=== PATIENT | female | born 1965 | race Caucasian/White ===

== ENCOUNTER 2019-08-06 14:16 | Outpatient (CLI) | payer MEDICARE, MEDICAID, SELFPAY ==
--- NOTE | 2019-08-06 | ECHO_ITS ---
Patient Info Name: Ivis Manriquez Age: 54 years : 1965 Gender: Female Ht: 62 in Wt: 162 lbs BSA: 1.82 m2 HR: 78 bpm BP: 162 / 96 mmHg Heart Rhythm: Sinus Rhythm Technical Quality: Good Exam Date: 08/06/2019 3:02 PM Exam Location: [facility] Patient Status: Outpatient Admit Date: 08/06/2019 Staff Ordering Physician: Akira, Gris SOTO Cigarette Maker: Greg Marie RDCS Attending Provider: Akira, Gris SOTO Exam Type: CA echo doppler color flow Study Info Indications I31.3 - Pericardial effusion (noninflammatory) Complete two-dimensional, color flow and Doppler transthoracic echocardiogram is performed. Strain analysis performed. History/Risk Factors Pericardial effusion. Summary 1. Left ventricular chamber size and systolic function are normal with no regional wall motion abnormalities with an estimated ejection fraction of 60-65% average is-20%, normal. Global longitudinal strain Borderline LVH is present as is diastolic dysfunction. 2. Left atrial chamber dimension is mildly enlarged. 3. Mild pulmonary hypertension, estimated pulmonary arterial systolic pressure is 38 mmHg. 4. There is trace mitral and tricuspid valve regurgitation. 5. There is no pericardial effusion. 6. Normal sinus rhythm. Left Ventricle Left ventricular chamber dimension is normal. Left ventricular systolic function is normal, estimated at Empty. There is mildly increased left ventricular wall thickness. Left ventricular septal wall motion is normal. The left ventricular diastolic function is grade II diastolic dysfunction. Left ventricular chamber size and systolic function are normal with no regional wall motion abnormalities with an estimated ejection fraction of 60-65% average is-20%, normal. Global longitudinal strain Borderline LVH is present as is diastolic dysfunction. Right Ventricle Right ventricular chamber dimension is normal. Right ventricular systolic function is normal. Left Atria Left atrial chamber dimension is mildly enlarged. Right Atria Right atrial chamber dimension is normal. Aortic Valve The aortic valve is trileaflet. There is no aortic valve sclerosis. There is no aortic valve stenosis. There is no aortic valve regurgitation. Pulmonic Valve The pulmonic valve is normal. There is no pulmonic valve stenosis. There is no pulmonic regurgitation. Mitral Valve The mitral valve has normal leaflets. There is no mitral valve stenosis. There is trace mitral and tricuspid valve regurgitation. Tricuspid Valve The tricuspid valve leaflets are normal. There is no significant tricuspid valve stenosis. There is trace tricuspid valve regurgitation. Mild pulmonary hypertension, estimated pulmonary arterial systolic pressure is 38 mmHg. Pericardium/Pleural The pericardium appears normal. There is no pericardial effusion. Inferior Vena Cava Normal inferior vena cava with >50% collapse upon inspiration consistent with Empty right atrial pressure, 10 mmHg. Aorta The aortic root size at the sinus of Valsalva is normal. The prox ascending aorta size is normal. Left Ventricular Outflow Tract Name Value Normal LVOT 2D LVOT Diameter 2.0
== END 2019-08-06 14:17 | disposition home or self-care (01) ==
LOC: ANHCARD 14:21
PROVIDERS: PCP Physician Assistant; Visit Provider Nurse Practitioner
DX: I31.3 Pericardial effusion (noninflammatory) (principal); I27.20 Pulmonary hypertension, unspecified; I51.7 Cardiomegaly
CPT/HCPCS: 93306

== ENCOUNTER 2019-12-04 13:19 | Outpatient (CLI) | payer MEDICARE, MEDICAID, SELFPAY ==
[2019-12-04 13:38] LABS: Basophils Percent Auto 0.3 % (0.2-1.2); Eosinophils Absolute Auto 0.2 K/mm3 (0-0.3); Eosinophils Percent Auto 2.4 % (0-4.4); Hematocrit 35.2 % (37.0-47.0); Hemoglobin 12.1 g/dL (12.0-15.0); Immature Granulocyte Absolute 0.03 K/mm3 (0.00-0.031); Immature Granulocyte Percent A 0.4 % (0-0.5); Lymphocytes Absolute Auto 2.19 K/mm3 (0.9-3.2); Mean Corpuscular HGB Conc 34.4 g/dl (32-36); Mean Corpuscular Hemoglobin 30.5 pg (26-34); Mean Corpuscular Volume 88.7 fl (80-100); Mean Platelet Volume 7.9 fl (7.4-10.4); Monocytes Percent Auto 12.5 % (2.6-8.5); Neutrophils Absolute Auto 4.4 K/mm3 (1.3-6.7); Neutrophils Percent Auto 56.4 % (45.5-73.1); Platelet Count Result 371 k/mm3 (150-375); Red Blood Count 3.97 M/mm3 (4.2-5.4); Red Cell Distribution Width 13.2 % (11.5-14.5); White Blood Count 7.8 K/mm3 (4.5-10.0)
[2019-12-04 15:03] LABS: Blood Urea Nitrogen 11 mg/dL (7-17); Calcium 9.8 mg/dL (8.4-10.2); Carbon Dioxide 25 mmol/L (22-30); Chloride 90 mmol/L (98-107); Estimated Glomerular Filt Rate > 60; Glucose 126 mg/dL (65-105); Potassium 4.4 mmol/L (3.4-5.0); Sodium 126 mmol/L (137-145)
[2019-12-04 15:12] LABS: Immunoglobulin A 125 mg/dL (70-400); Immunoglobulin G 862 mg/dL (700-1600); Immunoglobulin M 35 mg/dL (40-230)
[2019-12-07 03:52] LABS: Kappa\\Lambda Light Chains 1.88 (0.26-1.65); Lambda Light Chain 10.1 mg/L (5.7-26.3)
[2019-12-08 04:32] LABS: Abnormal Protein Band 1 0.4 g/dL; Albumin 4.2 g/dL (3.8-4.8); Alpha 1 Globulin 0.3 g/dL (0.2-0.3); Alpha 2 Globulin 0.6 g/dL (0.5-0.9); Beta 1 Globulin 0.4 g/dL (0.4-0.6); Gamma Globulin 0.7 g/dL (0.8-1.7); Protein, Total 6.4 g/dL (6.1-8.1)
== END 2019-12-04 13:20 | disposition home or self-care (01) ==
PROVIDERS: PCP Physician Assistant; Visit Provider Internal Medicine Hematology & Oncology
DX: D47.2 Monoclonal gammopathy (principal)
CPT/HCPCS: 36415; 80048; 82784; 83883; 84155; 84165; 85025; 86334

== ENCOUNTER 2020-07-13 10:08 | Outpatient (CLI) | payer MEDICARE, MEDICAID, SELFPAY ==
--- NOTE | ~2020-07-13 | CT_ITS ---
EXAMINATION: CT diagnostic chest wo con DATE: 07/13/2020 10:36 INDICATION: Lung nodules TECHNIQUE: Computed tomography (CT) of the chest was performed without intravenous contrast. The dose -length product (DLP) was 100.83 mGy-cm. Automated exposure control and iterative reconstruction tech Dudaque were employed. COMPARISON: 09/17/2018, 04/20/2017 FINDINGS: There are stable nodules of the left upper lobe measuring up to 3 mm. No new or suspicious pulmonary nodule is identified. The lungs are free of acute opacities. There is no pleural effusion o r pneumothorax. Calcified pulmonary nodules and calcified left hilar and mediastinal lymph nodes are consistent with old granulomatous disease. No pathologically enlarged thoracic lymph nodes are identi fied. The heart size is normal. A stable 1.6 cm low-density mass of the right adrenal gland is consis tent with an adenoma. There is mild thoracic spondylosis. IMPRESSION: 1. Stable small nodules of the left upper lobe, consistent with old granulomatous disease. Reviewed, dictated and finalized at location A. ER PATROL OFFICER IMPRESSION: 1. Stable small nodules of the left upper lobe, consistent with old granulomato us disease.
== END 2020-07-13 10:09 | disposition home or self-care (01) ==
PROVIDERS: PCP Physician Assistant; Visit Provider Nurse Practitioner
DX: R91.8 Other nonspecific abnormal finding of lung field (principal)
CPT/HCPCS: 71250

== ENCOUNTER 2020-12-01 12:28 | Outpatient (CLI) | payer MEDICARE, MEDICAID, SELFPAY ==
[2020-12-01 12:53] LABS: Eosinophils Absolute Auto 0.1 K/mm3 (0-0.3); Eosinophils Percent Auto 1.8 % (0-4.4); Hemoglobin 12.9 g/dL (12.0-15.0); Immature Granulocyte Absolute 0.01 K/mm3 (0.00-0.031); Immature Granulocyte Percent A 0.2 % (0-0.5); Lymphocytes Absolute Auto 2.11 K/mm3 (0.9-3.2); Lymphocytes Percent Auto 35.3 % (18.3-44.2); Mean Corpuscular HGB Conc 34.9 g/dl (32-36); Mean Corpuscular Hemoglobin 30.5 pg (26-34); Mean Corpuscular Volume 87.5 fl (80-100); Mean Platelet Volume 7.7 fl (7.4-10.4); Monocytes Absolute Auto 0.9 K/mm3 (0.1-0.6); Monocytes Percent Auto 14.6 % (2.6-8.5); Neutrophils Absolute Auto 2.9 K/mm3 (1.3-6.7); Neutrophils Percent Auto 48.1 % (45.5-73.1); Platelet Count Result 333 k/mm3 (150-375); Red Blood Count 4.23 M/mm3 (4.2-5.4); Red Cell Distribution Width 14.6 % (11.5-14.5)
[2020-12-01 16:01] LABS: Immunoglobulin A 159 mg/dL (70-400); Immunoglobulin G 871 mg/dL (700-1600); Immunoglobulin M 46 mg/dL (40-230)
[2020-12-01 16:20] LABS: Alanine Aminotransferase 17 U/L (4-35); Albumin Level 4.5 g/dL (3.5-5.1); Alkaline Phosphatase 63 U/L (38-126); Anion Gap 8 mmol/L (8-16); Aspartate Amino Transferase 18 U/L (14-36); Bilirubin,Total < 0.1 mg/dL (0.2-1.3); Blood Urea Nitrogen 9 mg/dL (7-17); Calcium 10.1 mg/dL (8.4-10.2); Carbon Dioxide 25 mmol/L (22-30); Chloride 100 mmol/L (98-107); Estimated Glomerular Filt Rate > 60; Glucose 115 mg/dL (65-105); Potassium 3.9 mmol/L (3.4-5.0); Sodium 133 mmol/L (137-145)
[2020-12-05 12:36] LABS: Kappa\\Lambda Light Chains 1.58 (0.26-1.65); Lambda Light Chain 10.7 mg/L (5.7-26.3)
[2020-12-07 04:36] LABS: Abnormal Protein Band 1 0.4 g/dL; Albumin 4.2 g/dL (3.8-4.8); Alpha 1 Globulin 0.3 g/dL (0.2-0.3); Alpha 2 Globulin 0.7 g/dL (0.5-0.9); Beta 1 Globulin 0.5 g/dL (0.4-0.6); Gamma Globulin 0.8 g/dL (0.8-1.7); Protein, Total 6.8 g/dL (6.1-8.1)
== END 2020-12-01 12:29 | disposition home or self-care (01) ==
LOC: ANHLAB 12:31
PROVIDERS: PCP Physician Assistant; Visit Provider Internal Medicine Hematology & Oncology
DX: D47.2 Monoclonal gammopathy (principal)
CPT/HCPCS: 36415; 80053; 82784; 83883; 84155; 84165; 85025; 86334

== ENCOUNTER 2020-12-23 01:26 | Day surgery (SDC) | payer MEDICARE, MEDICAID, SELFPAY ==
[2020-12-15 10:56] VITALS: BMI 31.1
[2020-12-15 12:03] VITALS: BMI 31.1
--- NOTE | 2020-12-22 09:29 | WPDANESEPPF ---
Anes - Initial Pre Proc Eval Procedure: Operation Date: 12/23/20 11:00 Proposed Procedures p Esophagogastroduodenoscopy - Wil Tinoco MD Date/Time: 12/22/20 09:29 Surgeon: Wil Tinoco MD Pre Op Diagnosis: gastritis Patient Data Age: 55 Gender: F Height: 1.57 m Weight: 77.3 kg Allergies Allergy/AdvReac Type Severity Reaction Status Date / Time amoxicillin [From Augmentin] Allergy Itching Verified 12/23/20 09:49 clavulanic acid Allergy Itching Verified 12/23/20 09:49 [From Augmentin] Home Medications Medication Instructions Recorded Confirmed Type atorvastatin 10 mg PO DAILY 12/15/20 12/23/20 History betamethasone, augmented 1 applic TOPICAL PRN PRN 12/15/20 12/23/20 History desvenlafaxine succinate 100 mg PO DAILY 12/15/20 12/23/20 History doxepin 25 mg PO HS 12/15/20 12/23/20 History exenatide microspheres [Bydureon 2 mg SUBCUT WEEKLY 12/15/20 12/23/20 History BCise] furosemide 20 mg PO DAILY 12/15/20 12/23/20 History ipratropium-albuterol [Combivent 2 puff INHALATION QID PRN 12/15/20 12/23/20 History Respimat] levothyroxine [Synthroid] 137 mcg PO DAILY 12/15/20 12/23/20 History liothyronine See Rx Instructions .ROUTE .COMPLEX 12/15/20 12/15/20 History metformin 850 mg PO TIDWMEAL 12/15/20 12/15/20 History mirabegron [Myrbetriq] 25 mg PO HS 12/15/20 12/15/20 History montelukast 10 mg PO DAILY 12/15/20 12/15/20 History pregabalin 50 mg PO TIDWMEAL 12/15/20 12/15/20 History tramadol 50 mg PO PRN PRN 12/15/20 12/15/20 History trazodone 150 mg PO HS 12/15/20 12/15/20 History valsartan 80 mg PO DAILY 12/15/20 12/15/20 History vortioxetine [Trintellix] 10 mg PO DAILY 12/15/20 12/15/20 History ziprasidone HCl 80 mg PO BIDWMEAL 12/15/20 12/15/20 History Patient hx anesthesia problems: none Family hx anesthesia problems: none [facility] Past Medical History Medical History (Updated 12/22/20 @ 09:35 by Nam Valverde DO) Anxiety COPD (chronic obstructive pulmonary disease) Diabetes type 2, controlled Hyperlipidemia Hypertension Hypothyroidism MAYRA (obstructive sleep apnea) Family History Family History (Updated 10/02/18 @ 14:10 by DOCTOR UNKNOWN) Mother Diabetes mellitus Hypertension Asthma Acute myocardial infarction Family history of chronic obstructive pulmonary disease Family history of congestive heart failure Sibling Asthma Family history of chronic obstructive pulmonary disease Family history of congestive heart failure Father Acute myocardial infarction Carcinoma of colon Other Family history of allergic disorder Family history of cardiovascular disease Social History Social History Smoking packs per day: 1 Smoking cigarettes per day: 20.0 Years smoked: 40 Smoking pack-years: 40.00 Smoking status: Current every day smoker Tobacco type: cigarettes Alcohol intake: former Drinks per week: 15 Alcohol use details: QUIT 2009 Substance use: current Substance use type: marijuana Last use: 12/15/20 Living arrangements: other 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 Questions were solicited and answers provided to the satisfaction of the patient/family/POA.
[2020-12-23 09:49] LABS: Glucose Point of Care 106 mg/dl (65-105)
[2020-12-23] MEDS: LACTATED RINGERS 1,000 ML 150 ML IV CONT (10:00)
--- NOTE | 2020-12-23 11:09 | PM.HPGS ---
History of Present Illness History of Present Illness Consent: Risks, benefits, and alternatives have been discussed and questions answered. Patient agrees to proceed with procedure. Chief complaint: gastritis Narrative: Ivis Manriquez is a 55 year old female Who has had abdominal pain and discomfort for about 6 months. Initially it was intermittently but now she has almost constant pain. she also suffers from great deal of bloating. She does not have excess gas or belching. She denies weight loss, change in appetite, vomiting, or significant nausea. She has become somewhat constipated lately Review of Systems Review of Systems: All systems reviewed & are unremarkable except as noted in HPI and below PMFSH Past Medical History Medical History Anxiety COPD (chronic obstructive pulmonary disease) Diabetes type 2, controlled Hyperlipidemia Hypertension Hypothyroidism MAYRA (obstructive sleep apnea) Family History Family History Mother Diabetes mellitus Hypertension Asthma Acute myocardial infarction Family history of chronic obstructive pulmonary disease Family history of congestive heart failure Sibling Asthma Family history of chronic obstructive pulmonary disease Family history of congestive heart failure Father Acute myocardial infarction Carcinoma of colon Other Family history of allergic disorder Family history of cardiovascular disease Social History Social History Smoking packs per day: 1 Smoking cigarettes per day: 20.0 Years smoked: 40 Smoking pack-years: 40.00 Smoking status: Current every day smoker Tobacco type: cigarettes Alcohol intake: former Drinks per week: 15 Alcohol use details: QUIT 2009 Substance use: current Substance use type: marijuana Last use: 12/15/20 Living arrangements: other Additional living arrangements 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 Spiritual care concerns: No Meds Home Medications and Allergies Home Medications Medication Instructions Recorded Confirmed Type atorvastatin 10 mg PO DAILY 12/15/20 12/23/20 History betamethasone, augmented 1 applic TOPICAL PRN PRN 12/15/20 12/23/20 History desvenlafaxine succinate 100 mg PO DAILY 12/15/20 12/23/20 History doxepin 25 mg PO HS 12/15/20 12/23/20 History exenatide microspheres [Bydureon 2 mg SUBCUT WEEKLY 12/15/20 12/23/20 History BCise] furosemide 20 mg PO DAILY 12/15/20 12/23/20 History ipratropium-albuterol [Combivent 2 puff INHALATION QID PRN 12/15/20 12/23/20 History Respimat] levothyroxine [Synthroid] 137 mcg PO DAILY 12/15/20 12/23/20 History liothyronine See Rx Instructions .ROUTE .COMPLEX 12/15/20 12/15/20 History metformin 850 mg PO TIDWMEAL 12/15/20 12/15/20 History mirabegron [Myrbetriq] 25 mg PO HS 12/15/20 12/15/20 History montelukast 10 mg PO DAILY 12/15/20 12/15/20 History pregabalin 50 mg PO TIDWMEAL 12/15/20 12/15/20 History tramadol 50 mg PO PRN PRN 12/15/20 12/15/20 History trazodone 150 mg PO HS 12/15/20 12/15/20 History valsartan 80 mg PO DAILY 12/15/20 12/15/20 History vortioxetine [Trintellix] 10 mg PO DAILY 12/15/20 12/15/20 History ziprasidone HCl 80 mg PO BIDWMEAL 12/15/20 12/15/20 History Allergies Allergy/AdvReac Type Severity Reaction Status Date / Time amoxicillin [From Augmentin] Allergy Itching Verified 12/23/20 09:49 clavulanic acid Allergy Itching Verified 12/23/20 09:49 [From Augmentin] Exam Resp: Auscultation: clear to auscultation bilaterally Cardio: Rate: regular rate Rhythm: regular rhythm GI: GI Palp: Yes Soft to palpation and No Tenderness to palpation present (GI) Assessment and Plan Assessment and plan (1) Abdominal pain: Code(s): R10.9 - Unspecified abdominal pain Status: Acute Assessment and Plan: EGD with possible biopsy or dila
[2020-12-23 11:24] VITALS: BP 147/77; PULSE 91; RESP 22; O2SAT 96
[2020-12-23 11:34] VITALS: BP 132/89; PULSE 98; RESP 24; O2SAT 96
[2020-12-23 11:44] VITALS: BP 164/82; PULSE 87; RESP 26; O2SAT 95
[2020-12-23 11:45] LABS: Glucose Point of Care 93 mg/dl (65-105)
== END 2020-12-23 11:54 | disposition home or self-care (01) ==
PROVIDERS: PCP Physician Assistant; Visit Provider Internal Medicine Gastroenterology
PROC: 0DJ08ZZ Inspection of Upper Intestinal Tract, Via Natural or Artificial Opening Endoscopic (ICD-10-PCS; CPT 43235; principal; 2020-12-23 11:00)
DX: K21.9 Gastro-esophageal reflux disease without esophagitis (principal); K29.80 Duodenitis without bleeding; K44.9 Diaphragmatic hernia without obstruction or gangrene; I10 Essential (primary) hypertension; E78.5 Hyperlipidemia, unspecified; E03.9 Hypothyroidism, unspecified; E11.9 Type 2 diabetes mellitus without complications; G47.33 Obstructive sleep apnea (adult) (pediatric); J44.9 Chronic obstructive pulmonary disease, unspecified; F41.9 Anxiety disorder, unspecified; F17.210 Nicotine dependence, cigarettes, uncomplicated; F12.90 Cannabis use, unspecified, uncomplicated; E66.9 Obesity, unspecified; Z68.32 Body mass index [BMI] 32.0-32.9, adult; Z79.84 Long term (current) use of oral hypoglycemic drugs
CPT/HCPCS: 43239; 82948; 87081; 88305; 88313; J2704; J7120

== ENCOUNTER 2021-01-24 09:29 | Emergency (ER) | payer MEDICARE, MEDICAID, SELFPAY ==
[2021-01-24 09:38] VITALS: BP 163/99; PULSE 88; RESP 16; TEMP 37.1; O2SAT 98
--- NOTE | 2021-01-24 10:38 | ED.ABDPAIN ---
HPI - Abdominal Pain General Chief Complaint: Abdominal Pain <Gris Gonzalez PA-C - Last Filed: 01/24/21 12:25> Stated Complaint: abdominal pain <Gris Gonzalez PA-C - Last Filed: 01/24/21 12:25> Time Seen by Provider: 01/24/21 10:06 <Gris Gonzalez PA-C - Last Filed: 01/24/21 12:25> Source: patient <ASUNCION Martínez Last Filed: 01/24/21 12:25> Mode of arrival: ambulatory <ASUNCION Martínez Last Filed: 01/24/21 12:25> Limitations: no limitations <Gris Gonzalez PA-C - Last Filed: 01/24/21 12:25> History of Present Illness HPI narrative: This is a 55 year old female that presents to the ER for abdominal pain x 2 days. Associated with nausea and vomiting. Reports the pain is diffuse. She has not been able to keep much down. She does have history of DM. Reports her blood sugar last night was 99. Denies fever, dysuria, hematuria, diarrhea, or hematochezia. <ASUNCION Martínez Last Filed: 01/24/21 12:25> Related Data Home Medications: Home Medications Medication Instructions Recorded Confirmed Bydureon BCise 2 mg SUBCUT WEEKLY 12/15/20 12/23/20 Combivent Respimat 2 puff INHALATION QID PRN 12/15/20 12/23/20 Myrbetriq 25 mg PO HS 12/15/20 12/15/20 Trintellix 10 mg PO DAILY 12/15/20 12/15/20 atorvastatin 10 mg PO DAILY 12/15/20 12/23/20 betamethasone, augmented 1 applic TOPICAL PRN PRN 12/15/20 12/23/20 desvenlafaxine succinate 100 mg PO DAILY 12/15/20 12/23/20 doxepin 25 mg PO HS 12/15/20 12/23/20 furosemide 20 mg PO DAILY 12/15/20 12/23/20 levothyroxine [Synthroid] 137 mcg PO DAILY 12/15/20 12/23/20 liothyronine See Rx Instructions .ROUTE .COMPLEX 12/15/20 12/15/20 metformin 850 mg PO TIDWMEAL 12/15/20 12/15/20 montelukast 10 mg PO DAILY 12/15/20 12/15/20 pregabalin 50 mg PO TIDWMEAL 12/15/20 12/15/20 tramadol 50 mg PO PRN PRN 12/15/20 12/15/20 trazodone 150 mg PO HS 12/15/20 12/15/20 valsartan 80 mg PO DAILY 12/15/20 12/15/20 ziprasidone HCl 80 mg PO BIDWMEAL 12/15/20 12/15/20 <Gris Gonzalez PA-C - Last Filed: 01/24/21 12:25> Allergies/Adverse Reactions: Allergies Allergy/AdvReac Type Severity Reaction Status Date / Time amoxicillin [From Augmentin] Allergy Itching Verified 01/24/21 09:42 clavulanic acid Allergy Itching Verified 01/24/21 09:42 [From Augmentin] <Gris Gonzalez PA-C - Last Filed: 01/24/21 12:25> Review of Systems Review of Systems: CONSTITUTIONAL: Denies fever GASTROINTESTINAL: Reports abdominal pain, nausea, vomiting. Denies diarrhea. GENITOURINARY: Denies dysuria or hematuria. <Gris Gonzalez PA-C - Last Filed: 01/24/21 12:25> All systems reviewed & are unremarkable except as noted in HPI and below <Gris Gonzalez PA-C - Last Filed: 01/24/21 12:25> [facility] Past Medical History Medical History: Medical History Anxiety COPD (chronic obstructive pulmonary disease) Diabetes type 2, controlled Hyperlipidemia Hypertension Hypothyroidism MAYRA (obstructive sleep apnea) <ASUNCION Martínez Last Filed: 01/24/21 12:25> Family History Family History: Family History Mother Diabetes mellitus Hypertension Asthma Acute myocardial infarction Family history of chronic obstructive pulmonary disease Family history of congestive heart failure Sibling Asthma Family history of chronic obstructive pulmonary disease Family history of congestive heart failure Father Acute myocardial infarction Carcinoma of colon Other Family history of allergic disorder Family history of cardiovascular disease <Gris Gonzalez PA-C - Last Filed: 01/24/21 12:25> Social History Social History: Social History Smoking packs per day: 1 Smoking cigarettes per day: 20.0 Years smoked: 40 Smoking pack-years: 40.00 Smoking status: Current
[2021-01-24 10:40] LABS: Basophils Percent Auto 0.2 % (0.2-1.2); Eosinophils Absolute Auto 0.1 K/mm3 (0-0.3); Eosinophils Percent Auto 1.3 % (0-4.4); Hematocrit 40.9 % (37.0-47.0); Hemoglobin 14.5 g/dL (12.0-15.0); Immature Granulocyte Absolute 0.04 K/mm3 (0.00-0.031); Immature Granulocyte Percent A 0.4 % (0-0.5); Lymphocytes Absolute Auto 0.89 K/mm3 (0.9-3.2); Lymphocytes Percent Auto 8.3 % (18.3-44.2); Mean Corpuscular HGB Conc 35.5 g/dl (32-36); Mean Corpuscular Hemoglobin 30.3 pg (26-34); Mean Corpuscular Volume 85.6 fl (80-100); Mean Platelet Volume 7.8 fl (7.4-10.4); Monocytes Absolute Auto 0.9 K/mm3 (0.1-0.6); Monocytes Percent Auto 8.4 % (2.6-8.5); Neutrophils Absolute Auto 8.8 K/mm3 (1.3-6.7); Neutrophils Percent Auto 81.4 % (45.5-73.1); Platelet Count Result 366 k/mm3 (150-375); Red Blood Count 4.78 M/mm3 (4.2-5.4); Red Cell Distribution Width 13.6 % (11.5-14.5); White Blood Count 10.8 K/mm3 (4.5-10.0)
[2021-01-24 10:55] LABS: Glucose Point of Care 114 mg/dl (65-105)
[2021-01-24 11:01] LABS: Magnesium 1.8 mg/dL (1.6-2.3); Phosphorus 2.5 mg/dL (2.5-4.5)
[2021-01-24 11:04] LABS: Alanine Aminotransferase 17 U/L (4-35); Albumin Level 4.8 g/dL (3.5-5.1); Alkaline Phosphatase 95 U/L (38-126); Anion Gap 9 mmol/L (8-16); Aspartate Amino Transferase 30 U/L (14-36); Bilirubin,Total 0.6 mg/dL (0.2-1.3); Blood Urea Nitrogen 7 mg/dL (7-17); Calcium 10.1 mg/dL (8.4-10.2); Carbon Dioxide 20 mmol/L (22-30); Chloride 106 mmol/L (98-107); Estimated CRCL calculation 87 ml/min; Estimated Glomerular Filt Rate > 60; Glucose 110 mg/dL (65-110); Lipase 84 U/L (23-300); Potassium 3.8 mmol/L (3.4-5.0); Sodium 135 mmol/L (137-145)
[2021-01-24 11:05] LABS: Beta-Hydroxybutyrate/Acetoacetate 0.46 mmol/L (0.02-0.27)
[2021-01-24] MEDS: FAMOTIDINE 20 MG/2 ML VIAL IV PUSH (11:14)
[2021-01-24] MEDS: SODIUM CHLORIDE 0.9% IV 1,000 ML 999 ML IV CONT (11:14)
[2021-01-24] MEDS: ONDANSETRON INJ 4 MG/2 ML VIAL IV PUSH (11:14)
[2021-01-24 11:34] LABS: Add Urine Microscopic? YES; Appearance Urine Clear (Clear); Bacteria Urine Trace /hpf; Bilirubin Urine Negative (Negative); Blood Urine 1+ (Negative); Color Urine Yellow (Yellow); Glucose Urine UA Negative (Negative); Ketones Urine 1+ mg/dL (Negative); Leukocyte Esterase Ur Negative LEU/UL (Negative); Mucus Urine Rare /lpf; Nitrate Urine Negative (Negative); Protein Urine 2+ mg/dL (Negative); Specific Grav Ur 1.016 (1.001-1.035); Squamous Epithelial Cell Urine Rare /hpf (Few); Urobilinogen Urine Negative mg/dL (<2.0)
--- NOTE | 2021-01-24 11:50 | PC.NURSE ---
rn called into room. pt states she is feeling much better and is ready to be discharged. paul mcmillan informed.
[2021-01-24 12:30] VITALS: BP 141/88; PULSE 102; RESP 16; O2SAT 98
== END 2021-01-24 12:30 | disposition home or self-care (01) ==
PROVIDERS: Physician Assistant; Emergency Provider General Practice; PCP Physician Assistant
DX: R11.2 Nausea with vomiting, unspecified (principal); F41.9 Anxiety disorder, unspecified; J44.9 Chronic obstructive pulmonary disease, unspecified; E11.9 Type 2 diabetes mellitus without complications; E78.5 Hyperlipidemia, unspecified; I10 Essential (primary) hypertension; E03.9 Hypothyroidism, unspecified; F17.210 Nicotine dependence, cigarettes, uncomplicated
CPT/HCPCS: 36415; 80053; 81001; 82010; 82948; 83690; 83735; 84100; 85025; 96365; 96375; 99284; J0131; J2405; J7030

== ENCOUNTER 2021-07-25 02:04 | Emergency (ER) | payer MEDICARE, MEDICAID, SELFPAY ==
[2021-07-25] VITALS (9 sets, daily range): BP systolic 144–155; BP diastolic 82–92; PULSE 72–101; RESP 14–20; TEMP 36.5–36.6; O2SAT 89–100
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
--- NOTE | 2021-07-25 02:19 | ECG_ITS ---
Measurements Intervals [place] Rate: 87 P: 54 CT: 189 QRS: 2 QRSD: 90 T: 36 QT: 379 QTc: 456 Interpretive Statements SINUS RHYTHM BASELINE ARTIFACT- II, III, AVR, AVF, V2-V6 NORMAL ECG Electronically Signed On 07-25-2021 7:52:50 PREPARATION OPERATOR by Thang Kiran D.O.
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
--- NOTE | 2021-07-25 02:23 | PC.NURSE ---
CO2 monitoring in place.
[2021-07-25] MEDS: SODIUM CHLORIDE 0.9% IV 1,000 ML 999 ML IV CONT (02:34)
[2021-07-25 02:45] LABS: Basophils Percent Auto 0.4 % (0.2-1.2); Eosinophils Absolute Auto 0.2 K/mm3 (0-0.3); Eosinophils Percent Auto 2.3 % (0-4.4); Hemoglobin 12.3 g/dL (12.0-15.0); Immature Granulocyte Absolute 0.03 K/mm3 (0.00-0.031); Immature Granulocyte Percent A 0.3 % (0-0.5); Lymphocytes Absolute Auto 1.63 K/mm3 (0.9-3.2); Mean Corpuscular HGB Conc 34.2 g/dl (32-36); Mean Corpuscular Hemoglobin 29.9 pg (26-34); Mean Corpuscular Volume 87.4 fl (80-100); Mean Platelet Volume 8.3 fl (7.4-10.4); Monocytes Absolute Auto 0.8 K/mm3 (0.1-0.6); Monocytes Percent Auto 7.6 % (2.6-8.5); Neutrophils Absolute Auto 7.5 K/mm3 (1.3-6.7); Neutrophils Percent Auto 73.4 % (45.5-73.1); Platelet Count Result 350 k/mm3 (150-375); Red Blood Count 4.12 M/mm3 (4.2-5.4); Red Cell Distribution Width 14.5 % (11.5-14.5); White Blood Count 10.2 K/mm3 (4.5-10.0)
[2021-07-25 03:00] LABS: Alanine Aminotransferase 13 U/L (4-35); Albumin Level 4.6 g/dL (3.5-5.1); Alkaline Phosphatase 85 U/L (38-126); Anion Gap 7 mmol/L (8-16); Aspartate Amino Transferase 23 U/L (14-36); Bilirubin,Total 0.3 mg/dL (0.2-1.3); Blood Urea Nitrogen 11 mg/dL (7-17); Calcium 9.4 mg/dL (8.4-10.2); Carbon Dioxide 24 mmol/L (22-30); Chloride 101 mmol/L (98-107); Estimated CRCL calculation 87 ml/min; Estimated Glomerular Filt Rate > 60; Glucose 117 mg/dL (65-110); Potassium 3.9 mmol/L (3.4-5.0); Sodium 132 mmol/L (137-145)
--- NOTE | 2021-07-25 03:05 | PC.NURSE ---
report given to Ihsan ARAIZA
[2021-07-25 03:30] LABS: Troponin I < 0.012 ng/mL (0.000-0.034)
[2021-07-25 03:57] LABS: Alveolar/Arterial O2 Gradient 54.1 mmHg; Base Excess ABG -0.9 mEq/l (+/-2.0); Carboxyhemoglobin 7.8 % THb (0-2.0); Fractional Inspired Oxygen 21 %; Methemoglobin ABG 0.3 %THb (0-1.5); Oxygen Content ABG 13.7 %vol (16.0-22.0); PO2 FiO2 Ratio Arterial Blood 2.21 %; Total Hemoglobin 12.8 g/dL (12.0-18.0); pH ABG 7.386 (7.350-7.450)
[2021-07-25 03:59] LABS: PO2 ABG 46.5 mmHg (80.0-100.0)
[2021-07-25 04:01] LABS: Modified Allen's Test Pass; Oxyhemoglobin 75.9 % THb (90.0-100.0); Site Drawn LEFT RADIAL
[2021-07-25] MEDS: IPRATROPIUM BR 0.02% INH SOLN 0.5 MG/2.5 ML VIAL INHALATION (04:11)
[2021-07-25] MEDS: ALBUTEROL SULFATE NEB 2.5 MG/0.5 ML INH 5 MG INHALATION (04:11)
--- NOTE | 2021-07-25 04:24 | PC.NURSE ---
Sherrie from [facility] called this RN to report that [facility] won't take pt without discharge plan in place by [facility]. Sherrie provided with [facility] phone number - [place]- [phone] - which staff member in room reports is a private agency with [facility].
[2021-07-25] MEDS: methylPREDNISolone SOD SUCC 125 MG VIAL IV PUSH (04:59)
== END 2021-07-25 05:08 | disposition home or self-care (01) ==
PROVIDERS: Emergency Medicine; Emergency Provider Nurse Practitioner Family; PCP Physician Assistant
DX: T59.811A Toxic effect of smoke, accidental (unintentional), initial encounter (principal); J44.1 Chronic obstructive pulmonary disease with (acute) exacerbation; E11.9 Type 2 diabetes mellitus without complications; E78.5 Hyperlipidemia, unspecified; I10 Essential (primary) hypertension; E03.9 Hypothyroidism, unspecified; G47.33 Obstructive sleep apnea (adult) (pediatric); E66.9 Obesity, unspecified; Z68.33 Body mass index [BMI] 33.0-33.9, adult; F41.9 Anxiety disorder, unspecified; Z79.84 Long term (current) use of oral hypoglycemic drugs; F17.210 Nicotine dependence, cigarettes, uncomplicated
CPT/HCPCS: 36415; 36600; 71046; 80053; 82375; 82805; 83050; 84484; 85025; 93005; 94640; 96361; 96374; 99284; J2930; J7030

== ENCOUNTER 2021-10-14 13:28 | Outpatient (CLI) | payer MEDICARE, MEDICAID, SELFPAY ==
--- NOTE | ~2021-10-14 | PE_ITS ---
EXAMINATION: PET skull to mid thigh DATE: 10/14/2021 15:40 INDICATION: Multiple lung nodules. Mediastinal mass. TECHNIQUE: Blood glucose level was 127 mg/dL. 9.985 mCi of 18-fluorodeoxyglucose (18-FDG) was adminis tered i.v. Low dose computed tomography (CT) images were acquired from the base of the brain to the p roximal thighs for attenuation correction and anatomic localization. Positron emission tomography (PE T) images were acquired in the same distribution beginning 57 minutes after injection. Images includi ng fused PET/CT images were reconstructed in axial, coronal, and sagittal planes. Automated exposure control technique was employed. The dose-length product was 875.35mGy-cm. COMPARISON: Chest CT dated 07/13/2020 FINDINGS: Head/neck: There is symmetric increased activity in the oral cavity, nasopharynx, parotid glands and ocular musc les without CT correlate, likely physiologic. Mild asymmetric enlargement and increased FDG uptake of the right lingual tonsils maximal SUV of 3.9. There is nearly complete opacification of the right ma xillary sinus with thickened sclerotic ny and diffuse mild FDG uptake consistent with chronic sinu sitis. No pathologically enlarged cervical lymphadenopathy. There is mild FDG uptake maximal SUV of 2 .5 associated with a mildly prominent 7 x 5 mm lymph node in the left posterior cervical triangle. Mi ld likely physiologic increased uptake at the left masseter muscles without radiologic correlate. No pathologically enlarged cervical lymphadenopathy. Chest: Mild emphysema. Mild increased uptake associated with a peripheral region of consolidation in the ant erior segment of the left upper lobe with maximal SUV of 3.1. Additional region of consolidation in t he infrahilar left lower lobe without increased FDG uptake. Calcified nodules at the lingula and calc ified mediastinal and left hilar lymph nodes consistent with old granulomatous disease. No pleural ef fusion. Heart size is normal. Small pericardial effusion. Thoracic aorta is normal in caliber. Interv al decrease in size of a prior 1.3 x 1.1 cm anterior mediastinal nodule anterior to the ascending honorio t of the aorta currently measuring 10 x 5 mm and without associated FDG uptake which most likely repr esented a reactive lymph node. Interval increase in several mildly enlarged prevascular lymph nodes, the largest measuring 1.3 cm in maximal short axis diameter without increased FDG uptake with maximal SUV of 1.9. The next largest and most . Of the lymph nodes in the AP window measures 9 mm in short a xis diameter with maximal SUV of 3.1. Finally there is a small focus of increased FDG uptake with max imal severe 3.2 at the left hilum most likely a small lymph node was unable to be distinguished from the surrounding vasculature. Small sliding-type hiatal hernia. Abdomen/pelvis/proximal thighs: Physiologic renal accumulation and excretion of FDG activity in the kidneys, bladder and along portio ns of ureters. Normal degree and heterogenous pattern of increased uptake throughout the liver withou t radiologic correlate or dominant FDG avid lesion. The gallbladder, pancreas and left adrenal gland are normal. No FDG uptake associated with a low-density 1.8 x 1.3 cm right adrenal adenoma. A few tin y splenic calcific lesions consistent with old granulomatous disease. Prominent uptake scattered thro ughout the bowels without radiologic correlate, also likely physiologic. The uterus is not identified and has likely been surgically resected. No other abnormal foci of increased FDG uptake or pathologi tricia enlarged lymphadenopathy in the abdomen, pelvis or proximal thighs. Musculoskeletal: No suspicious lytic, blastic or FDG avid bone lesions. IMPRESSION: 1. 2 regions of consolidation in the left upper and left lower lobes, the former with mild associated FDG uptake with configuration favoring pneumonia over atelectasis
[2021-10-14 14:02] LABS: Glucose Point of Care 127 mg/dl (65-105)
== END 2021-10-14 13:29 | disposition home or self-care (01) ==
PROVIDERS: PCP Physician Assistant; Visit Provider Nurse Practitioner
DX: R91.8 Other nonspecific abnormal finding of lung field (principal); E11.9 Type 2 diabetes mellitus without complications
CPT/HCPCS: 78815; A9552

== ENCOUNTER 2021-12-07 11:15 | Outpatient (CLI) | payer MEDICARE, MEDICAID, SELFPAY ==
[2021-12-07 11:50] LABS: Basophils Percent Auto 0.2 % (0.2-1.2); Eosinophils Absolute Auto 0.1 K/mm3 (0-0.3); Hematocrit 37.2 % (37.0-47.0); Hemoglobin 12.2 g/dL (12.0-15.0); Immature Granulocyte Absolute 0.01 K/mm3 (0.00-0.031); Immature Granulocyte Percent A 0.2 % (0-0.5); Lymphocytes Absolute Auto 1.49 K/mm3 (0.9-3.2); Lymphocytes Percent Auto 24.9 % (18.3-44.2); Mean Corpuscular HGB Conc 32.8 g/dl (32-36); Mean Corpuscular Volume 88.4 fl (80-100); Mean Platelet Volume 7.9 fl (7.4-10.4); Monocytes Percent Auto 16.9 % (2.6-8.5); Neutrophils Absolute Auto 3.4 K/mm3 (1.3-6.7); Neutrophils Percent Auto 56.8 % (45.5-73.1); Platelet Count Result 384 k/mm3 (150-375); Red Blood Count 4.21 M/mm3 (4.2-5.4); Red Cell Distribution Width 15.1 % (11.5-14.5)
[2021-12-07 14:05] LABS: Immunoglobulin A 201 mg/dL (70-400); Immunoglobulin G 922 mg/dL (700-1600); Immunoglobulin M 51 mg/dL (40-230)
[2021-12-07 14:08] LABS: Alanine Aminotransferase 15 U/L (6-35); Albumin Level 4.5 g/dL (3.5-5.1); Alkaline Phosphatase 73 U/L (38-126); Anion Gap 7 mmol/L (8-16); Aspartate Amino Transferase 18 U/L (14-36); Bilirubin,Total < 0.1 mg/dL (0.2-1.3); Blood Urea Nitrogen 10 mg/dL (7-17); Calcium 9.1 mg/dL (8.4-10.2); Carbon Dioxide 26 mmol/L (22-30); Chloride 100 mmol/L (98-107); Estimated Glomerular Filt Rate > 60; Glucose 99 mg/dL (65-110); Potassium 4.2 mmol/L (3.4-5.0); Sodium 133 mmol/L (137-145)
[2021-12-10 05:57] LABS: Kappa\\Lambda Light Chains 1.31 (0.26-1.65); Lambda Light Chain 20.3 mg/L (5.7-26.3)
[2021-12-10 16:08] LABS: Abnormal Protein Band 1 0.4 g/dL; Albumin 4.2 g/dL (3.8-4.8); Alpha 1 Globulin 0.3 g/dL (0.2-0.3); Alpha 2 Globulin 0.8 g/dL (0.5-0.9); Beta 1 Globulin 0.5 g/dL (0.4-0.6); Gamma Globulin 0.9 g/dL (0.8-1.7)
== END 2021-12-07 11:16 | disposition home or self-care (01) ==
PROVIDERS: PCP Physician Assistant; Visit Provider Internal Medicine Hematology & Oncology
DX: D47.2 Monoclonal gammopathy (principal)
CPT/HCPCS: 36415; 80053; 82784; 83883; 84155; 84165; 85025

== ENCOUNTER 2022-11-02 12:37 | Outpatient (CLI) | payer MEDICARE, MEDICAID, SELFPAY ==
[2022-11-02 12:52] LABS: Basophils Percent Auto 0.1 % (0.2-1.2); Eosinophils Percent Auto 0.3 % (0-4.4); Hematocrit 36.9 % (37.0-47.0); Hemoglobin 12.7 g/dL (12.0-15.0); Immature Granulocyte Absolute 0.03 K/mm3 (0.00-0.031); Immature Granulocyte Percent A 0.3 % (0-0.5); Lymphocytes Absolute Auto 2.59 K/mm3 (0.9-3.2); Lymphocytes Percent Auto 24.3 % (18.3-44.2); Mean Corpuscular HGB Conc 34.4 g/dl (32-36); Mean Corpuscular Hemoglobin 29.4 pg (26-34); Mean Corpuscular Volume 85.4 fl (80-100); Monocytes Absolute Auto 1.4 K/mm3 (0.1-0.6); Monocytes Percent Auto 13.2 % (2.6-8.5); Neutrophils Absolute Auto 6.6 K/mm3 (1.3-6.7); Neutrophils Percent Auto 61.8 % (45.5-73.1); Platelet Count Result 389 k/mm3 (150-375); Red Blood Count 4.32 M/mm3 (4.2-5.4); Red Cell Distribution Width 13.6 % (11.5-14.5); White Blood Count 10.7 K/mm3 (4.5-10.0)
[2022-11-02 16:57] LABS: Alanine Aminotransferase 19 U/L (6-35); Albumin Level 4.4 g/dL (3.5-5.1); Alkaline Phosphatase 87 U/L (38-126); Anion Gap 7 mmol/L (8-16); Aspartate Amino Transferase 21 U/L (14-36); Bilirubin,Total 0.2 mg/dL (0.2-1.3); Blood Urea Nitrogen 15 mg/dL (7-17); Calcium 9.2 mg/dL (8.4-10.2); Carbon Dioxide 26 mmol/L (22-30); Chloride 97 mmol/L (98-107); Estimated Glomerular Filt Rate > 60; Glucose 100 mg/dL (65-110); Potassium 3.7 mmol/L (3.4-5.0); Sodium 130 mmol/L (137-145)
[2022-11-02 21:24] LABS: Immunoglobulin A 194 mg/dL (70-400); Immunoglobulin G 964 mg/dL (700-1600); Immunoglobulin M 51 mg/dL (40-230)
[2022-11-05 12:45] LABS: Kappa\\Lambda Light Chains 1.44 (0.26-1.65); Lambda Light Chain 14.8 mg/L (5.7-26.3)
[2022-11-05 16:17] LABS: Abnormal Protein Band 1 0.5 g/dL; Albumin 3.9 g/dL (3.8-4.8); Alpha 1 Globulin 0.4 g/dL (0.2-0.3); Alpha 2 Globulin 0.9 g/dL (0.5-0.9); Beta 1 Globulin 0.5 g/dL (0.4-0.6); Protein, Total 6.9 g/dL (6.1-8.1)
== END 2022-11-02 12:38 | disposition home or self-care (01) ==
LOC: ANHLAB 12:39
PROVIDERS: PCP Physician Assistant; Visit Provider Internal Medicine Hematology & Oncology
DX: D47.2 Monoclonal gammopathy (principal)
CPT/HCPCS: 36415; 80053; 82784; 83883; 84155; 84165; 85025

== ENCOUNTER 2024-01-12 15:38 | Outpatient (CLI) | payer MEDICARE, MEDICAID, SELFPAY ==
[2024-01-12 16:29] LABS: Basophils Percent Auto 0.2 % (0.2-1.2); Eosinophils Absolute Auto 0.1 K/mm3 (0-0.3); Hemoglobin 12.5 g/dL (12.0-15.0); Immature Granulocyte Absolute 0.02 K/mm3 (0.00-0.031); Immature Granulocyte Percent A 0.2 % (0-0.5); Lymphocytes Absolute Auto 2.29 K/mm3 (0.9-3.2); Lymphocytes Percent Auto 27.8 % (18.3-44.2); Mean Corpuscular HGB Conc 32.9 g/dl (32-36); Mean Corpuscular Hemoglobin 29.7 pg (26-34); Mean Corpuscular Volume 90.3 fl (80-100); Mean Platelet Volume 8.2 fl (7.4-10.4); Monocytes Absolute Auto 1.1 K/mm3 (0.1-0.6); Monocytes Percent Auto 13.5 % (2.6-8.5); Neutrophils Absolute Auto 4.7 K/mm3 (1.3-6.7); Neutrophils Percent Auto 57.3 % (45.5-73.1); Platelet Count Result 392 k/mm3 (150-375); Red Blood Count 4.21 M/mm3 (4.2-5.4); White Blood Count 8.3 K/mm3 (4.5-10.0)
[2024-01-12 16:39] LABS: Alanine Aminotransferase 16 U/L (6-35); Albumin Level 4.2 g/dL (3.5-5.1); Alkaline Phosphatase 69 U/L (38-126); Anion Gap 7 mmol/L (4-12); Aspartate Amino Transferase 24 U/L (14-36); Bilirubin,Total 0.2 mg/dL (0.2-1.3); Blood Urea Nitrogen 12 mg/dL (7-17); Calcium 8.8 mg/dL (8.4-10.2); Carbon Dioxide 28 mmol/L (22-30); Chloride 95 mmol/L (98-107); Estimated Glomerular Filt Rate > 60; Glucose 66 mg/dL (65-110); Potassium 4.1 mmol/L (3.4-5.0); Sodium 130 mmol/L (137-145)
[2024-01-12 21:57] LABS: Immunoglobulin A 162 mg/dL (70-400); Immunoglobulin G 835 mg/dL (700-1600); Immunoglobulin M 46 mg/dL (40-230)
[2024-01-14 05:38] LABS: Protein, Total 6.3 g/dL (6.1-8.1)
[2024-01-15 13:33] LABS: Kappa\\Lambda Light Chains 1.67 (0.26-1.65); Lambda Light Chain 16.8 mg/L (5.7-26.3)
[2024-01-15 15:53] LABS: Abnormal Protein Band 1 0.5 g/dL (NONE DETECTED); Albumin 3.8 g/dL (3.8-4.8); Alpha 1 Globulin 0.3 g/dL (0.2-0.3); Alpha 2 Globulin 0.7 g/dL (0.5-0.9); Beta 1 Globulin 0.5 g/dL (0.4-0.6); Gamma Globulin 0.8 g/dL (0.8-1.7)
== END 2024-01-12 15:39 | disposition home or self-care (01) ==
LOC: ANHLAB 15:52
PROVIDERS: PCP Physician Assistant; Visit Provider Internal Medicine Hematology & Oncology
DX: D47.2 Monoclonal gammopathy (principal)
CPT/HCPCS: 36415; 80053; 82784; 83883; 84155; 84165; 85025

== ENCOUNTER 2024-07-15 11:44 | Outpatient (CLI) | payer MEDICARE, MEDICAID, SELFPAY ==
--- NOTE | ~2024-07-15 | XR_ITS ---
EXAMINATION:XR cervical spine 4-5V, XR lumbar spine 2-3V, XR thoracic spine 2V DATE: 07/15/2024 12:23 INDICATION: Radiculopathy TECHNIQUE: 1. AP, lateral, lateral swimmers and odontoid views of the cervical spine are provided. 2. AP, lateral and lateral thoracolumbar views of the thoracic spine were obtained. 3. AP, lateral and coned-down lateral lumbosacral views of the lumbar spine were obtained. COMPARISON: None FINDINGS: Cervical spine: Alignment is normal. Odontoid is intact. Mild atlantoaxial osteoarthritis. Vertebral body heights are normal. Mild disc height loss and mild uncovertebral osteoarthritis at C3-C4 through C6-C7. There is multilevel mild to moderate bilateral cervical facet osteoarthritis. Prevertebral soft tissues are n ormal. Partially visualized reverse right total shoulder arthroplasty on the lateral projection, inde terminate on which side. Thoracic spine: 15 degrees upper thoracic levoscoliosis measured between T2 and T6. Sagittal alignment is normal. Min imal anterior wedging at T7 and T8. There is mild and moderate disc height loss throughout the thorac ic spine heart size normal. Visualized portions of the lungs are clear with no pleural effusion or pn eumothorax. Lumbar spine: 6 degrees lumbar dextrocurvature. Sagittal alignment is normal. Vertebral body heights are normal. Th ere is mild disc height loss with at L2-L3, L3-L4 and L4-L5 mild to moderate lower lumbar predominant facet osteoarthritis. There is also mild osteoarthritis at the bilateral hip and sacroiliac joints. Cholecystectomy clips in right upper quadrant. IMPRESSION: 1. Mild cervical and lumbar spondylosis. 2. 15 degree upper thoracic levocurvature with mild to moderate spondylosis and minimal anterior wedg ing couple mid thoracic vertebral bodies. Reviewed, dictated and finalized at location A. AL CARE SERVICE WORKER IMPRESSION: 1. Mild cervical and lumbar spondylosis. 2. 15 degree upper thoracic levocurvature with mild to moderate spondylosis and minimal anterior wedging couple mid thoracic vertebral bodies. IMPRESSION: 1. Mild cervical and lumbar spondylosis. 2. 15 degree upper thoracic levocurvature with mild to moderate spondylosis and minimal anterior wedging couple mid thoracic vertebral bodies.
--- OUTSIDE RECORDS SUMMARY | 2024-07-15 12:25 | XMS_ITS | Encounter Summary ---
Author Organization [facility] Address [address] [facility] [place] [address] Care Team Providers Care Fish Stringer Assembler Name Role Phone Britney Brito Primary Care Pr ovider Encounter Details Date Type Department Care Team (Late st Contact Info) Description 02/14/2024 Lab Requisition [facility] - DermPath Lab [address] [place] [phone] Abidfatah Chun MD [address] [place], [place] [phone] Social History Tobacco Use Types Packs/Day Years Used Date Smoking Tobacco: Every Day Smokeless Tobacco: Never Alcohol Use Standard Drinks/Week Comments No 0 (1 standard drink = 0.6 oz pur e alcohol) Sex and Gender Information Value Date Recorded Sex Assigned at Not on file Gender Identity Not on file Sexual Orientation Not on file documented as of this encounter Plan of Treatment Not on file documented as of this encounter Procedures Procedure Name Priority Date/Time Associated Diagnosis Comments DERMATOPATHOLOGY Routine 02/13/2024 12:0 0 AM CDT documented in this encounter Results * DERMATOPATHOLOGY (02/13/2024 12:00 AM CDT) Case Report Dermatopathology Report Case: [id number] Authorizing Provider: Abdifatah Chun MD Collected: 02/13/2024 12:00 AM Ordering Location: [facility] - Received: 02/14/2024 10:17 AM DermPath Lab Pathologist: Ana Shaikh MD Specimen: Skin, left knee 1:44 PM CDT DERMATOPATHOLOGY LABORATORY Final Diagnosis Specimen A. SKIN, left knee: SQUAMOUS CELL CARCINOMA, WELL DIFFERENTIATED; SUPERFICIAL PORTIONS OF (C44.729) (see microscopic description) 1:44 PM CDT DERMATOPATHOLOGY LABORATORY Clinical History Neoplasm R/O Verruca 1:44 PM CDT DERMATOPATHOLOGY LABORATORY Gross Description Specimen A: Received is one formalin filled container labeled with the patients name and designated left knee. The specimen consists of a shave removal measuring 9x8x2 mm. Jar 0. 1:44 PM CDT DERMATOPATHOLOGY LABORATORY Microscopic Description Specimen A. SKIN, left knee: Arising in the epidermis and extending into the dermis there are superficial portions of irregularly shaped aggregates of keratinocytes showing evidence of premature cornification. 1:44 PM CDT DERMATOPATHOLOGY LABORATORY Disclaimer An external and internal positive and negative controls are appropriate for the histochemical, immunohistochemical and immunofluorescence stain(s) in this case (if any), except where stated explicitly. The performance characteristics of the stain(s) cited in this report were developed and its performance characteristic determined by the Dermatopathology Laboratory at [facility], directed by Dr. Trung Pimentel. These tests need not be, and therefore are not, approved by the [place] Food and Drug Administration. The tests are used for clinical purposes. Billing Codes Specimen Charges Stain Charges 71974 1 1:44 PM CDT DERMATOPATHOLOGY LABORATORY Embedded Images 1:44 PM CDT DERMATOPATHOLOGY LABORATORY Pathology/Cytolog y TISSUE SPECIMEN FROM SKIN / Unknown 02/13/2024 02/14/2024 10:17 AM CDT Abdifatah Chun MD LAB - PATHOLOGY/CYTO LOGY ORDERABLES DERMATOPATHOLOGY LABORATORY [facility] - Department of Dermatology [address], [address] [phone] documented in this encounter Visit Diagnoses Not on filedocumented in this encounter Care Teams Fish Stringer Assembler Relationship Specialty Start Date End Date Britney Brito PA [address] [place] [phone] PCP - General 03/15/17 documented as of this encounter
--- OUTSIDE RECORDS SUMMARY | 2024-07-15 12:25 | XMS_ITS ---
Author Organization [facility] Address [address] [facility] [address] [place] [address] Care Team Providers Care Guyline Operator Name Role Phone Britney Pretty Primary Care Provider Alejandro DUQUE MD, PARVIZ Unavailable Encounters Encounter Location Date Provider Diagnosis [facility] [address] [facility] [address] [address] [place] [address] 01/10/2024 PARVIZ DUQUE PLAN OF TREATMENT No Information Progress Notes * Ivis LEDESMADOB:1965 (58 yo F)Acc No.[id number]:01/10/2024 Patient: Ivis LEDESMA :1965 Age:58 Y Sex:Female Address:[address] [place] [address] * true * Date:
--- OUTSIDE RECORDS SUMMARY | 2024-07-15 12:25 | XMS_ITS | Encounter Summary ---
Author Organization [facility] Address [address] [facility] [place] [address] Care Team Providers Care Marker Machine Name Role Phone Britney Brito Primary Care Pr ovider Encounter Details Date Type Department Care Team (Late st Contact Info) Description 09/20/2023 Lab Requisition [facility] - DermPath Lab [address] [place] [phone] Abdifatah Chun MD [address] [place], [place] [phone] Social History Tobacco Use Types Packs/Day Years [...] Priority Date/Time Associated Diagnosis Comments DERMATOPATHOLOGY Routine 09/19/2023 3:33 AM CDT documented in this encounter Results * DERMATOPATHOLOGY (09/19/2023 3:33 AM CDT) Case Report Dermatopathology Report Case: [id number] Authorizing Provider: Abdifatah Chun MD Collected: 09/19/2023 03:33 AM Ordering Location: [facility] - Received: 09/20/2023 08:30 AM DermPath Lab Pathologist: Ana Shaikh MD Specimens: A) - Skin, right upper back B) - Skin, right anterior tibia 4:02 PM [facility] DERMATOPATHOLOGY LABORATORY Final Diagnosis Specimen A. 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 SKIN, right anterior tibia: BENIGN VERRUCOUS KERATOSIS, INFLAMED (L82.1) HEALING SKIN CHANGES (L90.5) (see microscopic description) 4:02 PM [facility] DERMATOPATHOLOGY LABORATORY Clinical History A: R/O Neoplasm vs Benign Nevus B: R/O Neoplasm 4:02 PM [facility] DERMATOPATHOLOGY LABORATORY Gross Description Specimen A: Received is one formalin filled container labeled with the patient's name and designated right upper back. The specimen consists of a shave biopsy measuring 6x4x1 mm. Jar 0. Specimen B: Received is one formalin filled container labeled with the patient's name and designated right anterior tibia. The specimen consists of a shave biopsy measuring 9x8x1 mm. Jar 0. 4:02 PM [facility] DERMATOPATHOLOGY LABORATORY Microscopic Description Specimen A. SKIN, right upper back: This is a compound nevus. There is melanin pigment in the stratum corneum. There is a lentiginous proliferation of melanocytes between nevus nests of cells along the dermal epidermal junction. There is underlying fibroplasia of the papillary dermis. The intradermal component is bland in appearance and matures with depth. (Compound Ghulam's Nevus) There is a lymphohistiocytic infiltrate within the dermis. Specimen B. SKIN, right anterior tibia: Sections show hyperkeratosis, papillomatosis, hypergranulosis, and acanthosis. Inflammatory cells are present within the dermis. These histological findings can be seen in a verruca vulgaris or a seborrheic keratosis. In addition, there is epidermal hyperplasia beneath which there are vascular proliferation, fibroblasts, and an edematous stroma. Additional deeper sections were obtained and reviewed. 4:02 PM [facility] DERMATOPATHOLOGY LABORATORY Disclaimer An external and internal positive and negative controls are appropriate for the histochemical, immunohistochemical and immunofluorescence stain(s) in this case (if any), except where stated explicitly. The performance characteristics of the stain(s) cited in this report were developed and its performance characteristic determined by the Dermatopathology Laboratory at [facility], directed by Dr. Trung Pimentel. These tests need not be, and therefore are not, approved by the [place] Food and Drug Administration. The tests are used for clinical purposes. Billing Codes Specimen Charges Stain Charges 59749 06466 1 1 4 4:02 PM CDT DERMATOPATHOLOGY LABORATORY Embedded Images 4 4:02 PM CDT DERMATOPATHOLOGY LABORATORY Pathology/Cytology TISSUE SPECIMEN FROM SKIN / Unknown 09/19/2023 3:33 AM CDT 09/20/2023 8:30 AM CDT Miscellaneous samples (specimen) TISSUE SPECIMEN FROM SKIN / Unknown 09/19/2023 3:33 AM CDT 09/20/2023 8:30 AM CDT Abdifatah Chun MD LAB - PATHOLOGY/CYTO LOGY ORDERABLES DERMATOPATHOLOGY LABORATORY [facility] - Department of Dermatology Specialized Medicine [address] [place] [address], [address] [phone] documented in this encounter Visit Diagnoses Not on filedocumented in this encounter Care Teams Marker Machine Relationship Specialty Start Date End Date Britney Brito PA [address] [place] [address] PCP - General 03/15/17 documented as of this encounter
--- OUTSIDE RECORDS SUMMARY | 2024-07-15 12:25 | XMS_ITS | Encounter Summary ---
Author Organization [facility] Address [address] [facility] [place] [address] Care Team Providers Care Agricultural Services Director Name Role Phone Britney Brito Primary Care Pr ovider Encounter Details Date Type Department Care Team (Late st Contact Info) Description 04/19/2023 Lab Requisition [facility] - DermPath Lab [address] [facility] [place] [phone] Abdifatah Chun MD [address] [place], [place] [phone] Social History Tobacco Use Types Packs/Day Years [...] Priority Date/Time Associated Diagnosis Comments DERMATOPATHOLOGY Routine 04/17/2023 12:0 0 AM AGRICULTURE SALES ACCOUNT MANAGER documented in this encounter Results * DERMATOPATHOLOGY (04/17/2023 12:00 AM AGRICULTURE SALES ACCOUNT MANAGER) Case Report Dermatopathology Report Case: [id number] Authorizing Provider: Abdifatah Chun MD Collected: 04/17/2023 12:00 AM Ordering Location: [facility] DermPath Lab Received: 04/19/2023 09:18 AM Pathologist: Ana Shaikh MD Specimen: Skin, left lat lower leg 2:12 PM AGRICULTURE SALES ACCOUNT MANAGER DERMATOPATHOLOGY LABORATORY Final Diagnosis Specimen A. SKIN, left lat lower leg: GRANULATION TISSUE, FRAGMENTS OF (L92.9) (see microscopic description and comment) 3 2:12 PM [facility] DERMATOPATHOLOGY LABORATORY Clinical History Bx Proven Can't R/O SCC Check Margins and Prior Biopsy 3 2:12 PM [facility] DERMATOPATHOLOGY LABORATORY Gross Description Specimen A: Received is one formalin filled container labeled with the patient's name and designated left lat lower leg. The specimen consists of a(3) pieces in aggregate shave biopsy measuring 5x5x1 mm. Jar 0. 3 2:12 PM [facility] DERMATOPATHOLOGY LABORATORY Microscopic Description Specimen A. SKIN, left lat lower leg: The specimen is fragmented. Sections show edema, an increased number of thin-walled vessels and a prominent mixed inflammatory infiltrate. COMMENT: Given the superficial and fragmented nature of the biopsy specimen, a deeper process cannot be excluded. 3 2:12 PM [facility] DERMATOPATHOLOGY LABORATORY Disclaimer An external and internal positive and negative controls are appropriate for the histochemical, immunohistochemical and immunofluorescence stain(s) in this case (if any), except where stated explicitly. The performance characteristics of the stain(s) cited in this report were developed and its performance characteristic determined by the Dermatopathology Laboratory at [facility], directed by Dr. Trung Pimentel. These tests need not be, and therefore are not, approved by the [place] Food and Drug Administration. The tests are used for clinical purposes. Billing Codes Specimen Charges Stain Charges 12380 1 3 2:12 PM [facility] DERMATOPATHOLOGY LABORATORY Embedded Images 3 2:12 PM [facility] DERMATOPATHOLOGY LABORATORY Pathology/Cytolog y TISSUE SPECIMEN FROM SKIN / Unknown 04/17/2023 04/19/2023 9:18 AM [facility] Abdifatah Chun MD LAB - PATHOLOGY/CYTO LOGY ORDERABLES DERMATOPATHOLOGY LABORATORY [facility] - Department of Dermatology [address] [phone] documented in this encounter Visit Diagnoses Not on filedocumented in this encounter Care Teams Agricultural Services Director Relationship Specialty Start Date End Date Britney Brito PA [address] [place] [phone] PCP - General 03/15/17 documented as of this encounter
--- OUTSIDE RECORDS SUMMARY | 2024-07-15 12:25 | XMS_ITS | Encounter Summary ---
Author Organization [facility] Address [address] [place] [address] Care Team Providers Care Bucket Pusher Name Role Phone Britney Brito Primary Care Pr ovider Encounter Details Date Type Department Care Team (Late st Contact Info) Description 08/24/2022 Lab Requisition [facility] DermPath Lab [address] [place] [phone] Abdifatah Chun MD [address] [place], [place] [phone] Social History Tobacco Use Types Packs/Day Years [...] Priority Date/Time Associated Diagnosis Comments DERMATOPATHOLOGY Routine 08/23/2022 12:0 0 AM CDT documented in this encounter Results * DERMATOPATHOLOGY (08/23/2022 12:00 AM CDT) Case Report Dermatopathology Report Case: [id number] Authorizing Provider: Abdifatah Chun MD Collected: 08/23/2022 12:00 AM Ordering Location: [facility] DermPath Lab Received: 08/24/2022 03:08 PM Pathologist: Ana Shaikh MD Specimen: Skin, right forearm 3:59 PM CDT DERMATOPATHOLOGY LABORATORY Final Diagnosis Specimen A. SKIN, right forearm: PRURIGO NODULARIS (L28.1) PRESENT AT MARGIN EPIDERMAL NECROSIS SUGGESTIVE OF EXCORIATION (L98.499) 3 3:59 PM CDT DERMATOPATHOLOGY LABORATORY Clinical History R/O Verr Check margin 3 3:59 PM CDT DERMATOPATHOLOGY LABORATORY Gross Description Specimen A: Received is one formalin filled container labeled with the patient's name and designated right forearm. The specimen consists of a shave biopsy measuring 8x5x1 mm. Jar 0. 3 3:59 PM CDT DERMATOPATHOLOGY LABORATORY Microscopic Description Specimen A. SKIN, right forearm: There is a dome-shaped portion of skin with psoriasiform epidermal hyperplasia, compact hyperkeratosis, and fibrosis of the papillary dermis associated with a superficial perivascular lymphohistiocytic infiltrate. This lesion is present at the margin of the specimen. The epidermis is focally necrotic and covered with a scale-crust. There is fibrin at the base. 3 3:59 PM CDT DERMATOPATHOLOGY LABORATORY Disclaimer An external and internal positive and negative controls are appropriate for the histochemical, immunohistochemical and immunofluorescence stain(s) in this case (if any), except where stated explicitly. The performance characteristics of the stain(s) cited in this report were developed and its performance characteristic determined by the Dermatopathology Laboratory at [facility], directed by Dr. Trung Pimentel. These tests need not be, and therefore are not, approved by the [place] Food and Drug Administration. The tests are used for clinical purposes. Billing Codes Specimen Charges Stain Charges 05570 1 3 3:59 PM CDT DERMATOPATHOLOGY LABORATORY Embedded Images 3 3:59 PM CDT DERMATOPATHOLOGY LABORATORY Pathology/Cytolog y TISSUE SPECIMEN FROM SKIN / Unknown 08/23/2022 08/24/2022 3:08 PM CDT Abdifatah Chun MD LAB - PATHOLOGY/CYTO LOGY ORDERABLES DERMATOPATHOLOGY LABORATORY [facility] - Department of Dermatology [address] [place] [address], [place] [phone] documented in this encounter Visit Diagnoses Not on filedocumented in this encounter Care Teams Bucket Pusher Relationship Specialty Start Date End Date Britney Brito PA [address] [place] [phone] PCP - General 03/15/17 documented as of this encounter
--- OUTSIDE RECORDS SUMMARY | 2024-07-15 12:25 | XMS_ITS | Encounter Summary ---
Author Organization [facility] Address [address] [facility] [place] [address] Care Team Providers Care Lamina Searcher Name Role Phone Britney Brito Primary Care Pr ovider Encounter Details Date Type Department Care Team (Late st Contact Info) Description 07/19/2022 Lab Requisition [facility] DermPath Lab [address] [place] [phone] Abdifatah Chun MD [facility] [place], [place] [phone] Social History Tobacco Use Types Packs/Day Years [...] Priority Date/Time Associated Diagnosis Comments DERMATOPATHOLOGY Routine 07/19/2022 12:0 0 AM VENTILATION EQUIPMENT TENDER documented in this encounter Results * DERMATOPATHOLOGY (07/19/2022 12:00 AM VENTILATION EQUIPMENT TENDER) Case Report Dermatopathology Report Case: [id number] Authorizing Provider: Abdifatah Chun MD Collected: 07/19/2022 12:00 AM Ordering Location: [facility] DermPath Lab Received: 07/19/2022 03:15 PM Pathologist: Carlyn Pimentel MD Specimens: A) - Skin, right elbow B) - Skin, right forearm inferior C) - Skin, right forearm anterior 3 4:55 PM [facility] [place] DERMATOPATHOLOGY LABORATORY Final Diagnosis Specimen A. 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 SKIN, right forearm inferior: PRURIGO NODULARIS (L28.1) Specimen C. SKIN, right forearm anterior: PRURIGO NODULARIS (L28.1) 3 4:55 PM [facility] [place] DERMATOPATHOLOGY LABORATORY Clinical History A-B: R/O Neoplasm. Check Margins. 3 4:55 PM [facility] [place] DERMATOPATHOLOGY LABORATORY Gross Description Specimen A: Received is one formalin filled container labeled with the patient's name and designated right elbow. The specimen consists of a shave biopsy measuring 8x6x2 mm. Jar 0. Specimen B: Received is one formalin filled container labeled with the patient's name and designated right forearm inferior. The specimen consists of a shave biopsy measuring 7x7x2 mm. Jar 0. Specimen C: Received is one formalin filled container labeled with the patient's name and designated right forearm anterior. The specimen consists of a shave biopsy measuring 8x6x2 mm. Jar 0. 3 4:55 PM [facility] [place] DERMATOPATHOLOGY LABORATORY Microscopic Description Specimen A. SKIN, right elbow: There is a dome-shaped portion of skin with psoriasiform epidermal hyperplasia, compact hyperkeratosis, and fibrosis of the papillary dermis associated with a superficial perivascular lymphohistiocytic infiltrate. Specimen B. SKIN, right forearm inferior: There is a dome-shaped portion of skin with psoriasiform epidermal hyperplasia, compact hyperkeratosis, and fibrosis of the papillary dermis associated with a superficial perivascular lymphohistiocytic infiltrate. Specimen C. SKIN, right forearm anterior: There is a dome-shaped portion of skin with psoriasiform epidermal hyperplasia, compact hyperkeratosis, and fibrosis of the papillary dermis associated with a superficial perivascular lymphohistiocytic infiltrate. 3 4:55 PM [facility] DERMATOPATHOLOGY LABORATORY Disclaimer An external and internal positive and negative controls are appropriate for the histochemical, immunohistochemical and immunofluorescence stain(s) in this case (if any), except where stated explicitly. The performance characteristics of the stain(s) cited in this report were developed and its performance characteristic determined by the Dermatopathology Laboratory at [facility], directed by Dr. Trung Pimentel. These tests need not be, and therefore are not, approved by the [place] Food and Drug Administration. The tests are used for clinical purposes. Billing Codes Specimen Charges Stain Charges 64387 26297 07557 1 1 1 3 4:55 PM VENTILATION EQUIPMENT TENDER DERMATOPATHOLOGY LABORATORY Embedded Images 3 4:55 PM VENTILATION EQUIPMENT TENDER DERMATOPATHOLOGY LABORATORY Pathology/Cytology TISSUE SPECIMEN FROM SKIN / Unknown 07/19/2022 07/19/2022 3:15 PM VENTILATION EQUIPMENT TENDER Miscellaneous samples (specimen) TISSUE SPECIMEN FROM SKIN / Unknown 07/19/2022 07/19/2022 3:15 PM VENTILATION EQUIPMENT TENDER Miscellaneous samples (specimen) TISSUE SPECIMEN FROM SKIN / Unknown 07/19/2022 07/19/2022 3:15 PM VENTILATION EQUIPMENT TENDER Abdifatah Chun MD LAB - PATHOLOGY/CYTO LOGY ORDERABLES DERMATOPATHOLOGY LABORATORY [facility] - Department of Dermatology [facility] Specialized Medicine [address] [place] [address], [address] [phone] documented in this encounter Visit Diagnoses Not on filedocumented in this encounter Care Teams Lamina Searcher Relationship Specialty Start Date End Date Britney Brito PA [address] [place] [address] PCP - General 03/15/17 documented as of this encounter
--- OUTSIDE RECORDS SUMMARY | 2024-07-15 12:25 | XMS_ITS | Encounter Summary ---
Author Organization [facility] Address [address] [facility] [place] [address] Care Team Providers Care Ciaio Counter Molder Name Role Phone Britney Brito Primary Care Pr ovider Encounter Details Date Type Department Care Team (Late st Contact Info) Description 07/28/2022 Lab Requisition [facility] DermPath Lab [address] [place] [phone] Abdifatah Chun MD [address] [place], [place] [phone] Social History Tobacco Use Types Packs/Day Years [...] Priority Date/Time Associated Diagnosis Comments DERMATOPATHOLOGY Routine 07/26/2022 12:0 0 AM CRTTS documented in this encounter Results * DERMATOPATHOLOGY (07/26/2022 12:00 AM CRTTS) Case Report Dermatopathology Report Case: [id number] Authorizing Provider: Abdifatah Chun MD Collected: 07/26/2022 12:00 AM Ordering Location: [facility] DermPath Lab Received: 07/28/2022 06:58 AM Pathologist: Ana Shaikh MD Specimens: A) - Skin, left thigh B) - Skin, left ant tibia 3 9:55 AM [facility] DERMATOPATHOLOGY LABORATORY Final Diagnosis Specimen A. SKIN, left thigh: BENIGN VERRUCOUS KERATOSIS, CONSISTENT WITH RESIDUAL PORTIONS OF (L82.1) DERMAL SCAR (L90.5) (see microscopic description and comment) Specimen B. SKIN, left ant tibia: HYPERPLASTIC (HYPERTROPHIC) ACTINIC KERATOSIS (L57.0) PRESENT AT MARGIN DERMAL SCAR (L90.5) (see microscopic description and comment) 3 9:55 AM [facility] DERMATOPATHOLOGY LABORATORY Clinical History A-B: Bx proven SCC Check margins 9:55 AM [facility] DERMATOPATHOLOGY LABORATORY Gross Description Specimen A: Received is one formalin filled container labeled with the patient's name and designated left thigh. The specimen consists of a shave biopsy measuring 10x8x2 mm. Jar 0. Specimen B: Received is one formalin filled container labeled with the patient's name and designated left ant tibia. The specimen consists of a shave biopsy measuring 11x9x2 mm. Jar 0. 3 9:55 AM [facility] DERMATOPATHOLOGY LABORATORY Microscopic Description Specimen A. SKIN, left thigh: Sections show hyperkeratosis, papillomatosis, hypergranulosis, and acanthosis. This lesion is present at the margin of the specimen. The epidermis is focally necrotic and covered with a scale-crust. There are fibroblasts and collagen bundles oriented parallel to the skin surface with elongated blood vessels, some of which are oriented perpendicular to the skin surface. These scar-like changes are present at the margin of the specimen. COMMENT: The prior biopsy ([id number]) is reviewed. These histologic features are consistent with residual portions of benign verrucous keratosis. The differential diagnosis includes healing skin changes and prurigo nodularis. If this specimen is sampled from a larger lesion, these findings may not be banking representative of the entire lesion. Clinicopathologic correlation is recommended. Specimen B. SKIN, left ant tibia: There is hyperkeratosis alternating with parakeratosis. There is epidermal hyperplasia with disorderly maturation of keratinocytes with nuclear pleomorphism confined to the lower half of the epidermis. This lesion is present at the margin of the specimen. There are fibroblasts and collagen bundles oriented parallel to the skin surface with elongated blood vessels, some of which are oriented perpendicular to the skin surface. These scar-like changes are present at the margin of the specimen. COMMENT: The prior biopsy ([id number]) is reviewed. A squamous cell carcinoma cannot be ruled out. 3 9:55 AM [facility] DERMATOPATHOLOGY LABORATORY Disclaimer An external and internal positive and negative controls are appropriate for the histochemical, immunohistochemical and immunofluorescence stain(s) in this case (if any), except where stated explicitly. The performance characteristics of the stain(s) cited in this report were developed and its performance characteristic determined by the Dermatopathology Laboratory at [facility], directed by Dr. Trung Pimentel. These tests need not be, and therefore are not, approved by the [place] Food and Drug Administration. The tests are used for clinical purposes. Billing Codes Specimen Charges Stain Charges 23092 68968 1 1 3 9:55 AM [facility] DERMATOPATHOLOGY LABORATORY Embedded Images 3 9:55 AM [facility] DERMATOPATHOLOGY LABORATORY Pathology/Cytology TISSUE SPECIMEN FROM SKIN / Unknown 07/26/2022 07/28/2022 6:58 AM CRTTS Miscellaneous samples (specimen) TISSUE SPECIMEN FROM SKIN / Unknown 07/26/2022 07/28/2022 6:58 AM CRTTS Abdifatah Chun MD LAB - PATHOLOGY/CYTO LOGY ORDERABLES DERMATOPATHOLOGY LABORATORY [facility] - Department of Dermatology [facility] [address] [place] [address], [address] [phone] documented in this encounter Visit Diagnoses Not on filedocumented in this encounter Care Teams Ciaio Counter Molder Relationship Specialty Start Date End Date Britney Brito PA [address] [place] [address] PCP - General 03/15/17 documented as of this encounter
--- OUTSIDE RECORDS SUMMARY | 2024-07-15 12:25 | XMS_ITS | Encounter Summary ---
Author Organization [facility] Address [address] [facility] [place] [address] Care Team Providers Care Promotional Marketing Agent Name Role Phone Britney Brito Primary Care Pr ovider Encounter Details Date Type Department Care Team (Late st Contact Info) Description 04/04/2023 Lab Requisition [facility] - DermPath Lab [address] [facility] [place] [phone] Abdifatah Chun MD [address] [place], [place] [phone] Social History Tobacco Use Types Packs/Day Years [...] Priority Date/Time Associated Diagnosis Comments DERMATOPATHOLOGY Routine 04/03/2023 12:0 0 AM CDT documented in this encounter Results * DERMATOPATHOLOGY (04/03/2023 12:00 AM CDT) Case Report Dermatopathology Report Case: [id number] Authorizing Provider: Abdifatah Chun MD Collected: 04/03/2023 12:00 AM Ordering Location: [facility] DermPath Lab Received: 04/05/2023 08:08 AM Pathologist: Carlyn Pimentel MD Specimens: A) - Skin, right elbow B) - Skin, left lat lower leg 5:36 PM T DERMATOPATHOLOGY LABORATORY Final Diagnosis Specimen A. SKIN, right elbow: VERRUCA VULGARIS (B07.8) PRESENT AT MARGIN Specimen B. SKIN, left lat lower leg: HYPERPLASTIC (HYPERTROPHIC) ACTINIC KERATOSIS; EXTENDING TO THE BASE OF THE SPECIMEN (L57.0) OVERLYING CUTANEOUS HORN (L85.8) (see microscopic description and comment) 5:36 PM [facility] DERMATOPATHOLOGY LABORATORY Clinical History A-B: Nodule R/O Verr. Check Margins. 5:36 PM [facility] DERMATOPATHOLOGY LABORATORY Gross Description Specimen A: Received is one formalin filled container labeled with the patient's name and designated right elbow. The specimen consists of a shave biopsy measuring 10x8x2 mm. Jar 0. Specimen B: Received is one formalin filled container labeled with the patient's name and designated left lat lower leg. The specimen consists of a shave biopsy measuring 10x9x1 mm. Jar 0. 5:36 PM [facility] DERMATOPATHOLOGY LABORATORY Microscopic Description Specimen A. SKIN, right elbow: There is digitated epidermal hyperplasia, hypergranulosis, vacuolated granular layer cells, and compact hyperorthokeratosis . This lesion is present at the margin of the specimen. Specimen B. SKIN, left lat lower leg: There is hyperkeratosis alternating with parakeratosis. There is epidermal hyperplasia with disorderly maturation of keratinocytes with nuclear pleomorphism confined to the lower half of the epidermis. This process extends to the base of the specimen. There is a column of marked compact hyperkeratosis. COMMENT: A squamous cell carcinoma cannot be ruled out. 5:36 PM [facility] DERMATOPATHOLOGY LABORATORY Disclaimer An external and internal positive and negative controls are appropriate for the histochemical, immunohistochemical and immunofluorescence stain(s) in this case (if any), except where stated explicitly. The performance characteristics of the stain(s) cited in this report were developed and its performance characteristic determined by the Dermatopathology Laboratory at [facility], directed by Dr. Trung Pimentel. These tests need not be, and therefore are not, approved by the [place] Food and Drug Administration. The tests are used for clinical purposes. Billing Codes Specimen Charges Stain Charges 53251 09217 1 1 3 5:36 PM [facility] DERMATOPATHOLOGY LABORATORY Embedded Images 3 5:36 PM [facility]T DERMATOPATHOLOGY LABORATORY Pathology/Cytology TISSUE SPECIMEN FROM SKIN / Unknown 04/03/2023 04/05/2023 8:08 AM CDT Miscellaneous samples (specimen) TISSUE SPECIMEN FROM SKIN / Unknown 04/03/2023 04/05/2023 8:08 AM CDT Abdifatah Chun MD LAB - PATHOLOGY/CYTO LOGY ORDERABLES DERMATOPATHOLOGY LABORATORY [facility] - Department of Dermatology [facility] Medicine [address] [place] [address], [address] [phone] documented in this encounter Visit Diagnoses Not on filedocumented in this encounter Care Teams Promotional Marketing Agent Relationship Specialty Start Date End Date Britney Brito PA [address] [place] [address] PCP - General 03/15/17 documented as of this encounter
--- OUTSIDE RECORDS SUMMARY | 2024-07-15 12:25 | XMS_ITS | Encounter Summary ---
Author Organization [facility] Address [address] [facility] [place] [address] Care Team Providers Care Perfect Binder Setter Name Role Phone Britney Brito Primary Care Pr ovider Encounter Details Date Type Department Care Team (Late st Contact Info) Description 03/12/2024 Lab Requisition [facility] - DermPath Lab [address] [place] [phone] Abdifatah Chun MD [address] [place], [place] [phone] Social History Tobacco Use Types Packs/Day Years [...] Priority Date/Time Associated Diagnosis Comments DERMATOPATHOLOGY Routine 03/11/2024 12:0 0 AM CDT documented in this encounter Results * DERMATOPATHOLOGY (03/11/2024 12:00 AM CDT) Case Report Dermatopathology Report Case: [id number] Authorizing Provider: Abdifatah Chun MD Collected: 03/11/2024 12:00 AM Ordering Location: [facility] Physician [facility] - Received: 03/12/2024 07:32 AM DermPath Lab Pathologist: Yenny Vega MD Specimens: A) - Skin, right index finger first PID joint B) - Skin, left knee 5:20 PM CDT DERMATOPATHOLOGY LABORATORY Final Diagnosis Specimen A. SKIN, right index finger first PID joint: VERRUCA VULGARIS (B07.8) DERMAL FIBROSIS (L90.5) Specimen B. SKIN, left knee: SQUAMOUS CELL CARCINOMA IN SITU, PRESENT AT THE BASE OF THE SPECIMEN (D04.72) (see microscopic description and comment) 5:20 PM T DERMATOPATHOLOGY LABORATORY Clinical History A: SCC B: Bx proven SCC 5:20 PM T DERMATOPATHOLOGY LABORATORY Gross Description Specimen A: Received is one formalin filled container labeled with the patient's name and designated right index finger first PID joint. The specimen consists of a curettage and desiccation biopsy measuring 7x8x2 mm. Jar 0. Specimen B: Received is one formalin filled container labeled with the patient's name and designated left knee. The specimen consists of a curettage and desiccation biopsy measuring 8x9x3 mm. Jar 0. 5:20 PM [facility] DERMATOPATHOLOGY LABORATORY Microscopic Description Specimen A. SKIN, right index finger first PID joint: There is digitated epidermal hyperplasia, hypergranulosis, vacuolated granular layer cells, and compact hyperorthokeratosis . There is underlying dermal fibrosis. Specimen B. SKIN, left knee: The epidermis shows parakeratosis, full thickness disorderly maturation of keratinocytes, mitoses at different levels, and dyskeratotic cells. The lesion extends to the base of the biopsy. COMMENT: An invasive squamous cell carcinoma cannot be ruled out. 5:20 PM T DERMATOPATHOLOGY LABORATORY Disclaimer An external and internal positive and negative controls are appropriate for the histochemical, immunohistochemical and immunofluorescence stain(s) in this case (if any), except where stated explicitly. The performance characteristics of the stain(s) cited in this report were developed and its performance characteristic determined by the Dermatopathology Laboratory at [facility], directed by Dr. Trung Pimentel. These tests need not be, and therefore are not, approved by the [place] Food and Drug Administration. The tests are used for clinical purposes. Billing Codes Specimen Charges Stain Charges 46120 83824 1 1 4 5:20 PM CDT DERMATOPATHOLOGY LABORATORY Embedded Images 5:20 PM CDT DERMATOPATHOLOGY LABORATORY Pathology/Cytology TISSUE SPECIMEN FROM SKIN / Unknown 03/11/2024 03/12/2024 7:32 AM CDT Miscellaneous samples (specimen) TISSUE SPECIMEN FROM SKIN / Unknown 03/11/2024 03/12/2024 7:32 AM CDT Abdifatah Chun MD LAB - PATHOLOGY/CYTO LOGY ORDERABLES DERMATOPATHOLOGY LABORATORY [facility] - Department of Dermatology [facility] Medicine [address] [place] [address], [address] [phone] documented in this encounter Visit Diagnoses Not on filedocumented in this encounter Care Teams Perfect Binder Setter Relationship Specialty Start Date End Date Britney Brito PA [address] [place] [address] PCP - General 03/15/17 documented as of this encounter
--- OUTSIDE RECORDS SUMMARY | 2024-07-15 12:25 | XMS_ITS | Encounter Summary ---
Author Organization [facility] Address [address] [place] [address] Care Team Providers Care Powder Blender Name Role Phone Britney Brito Primary Care Pr ovider Encounter Details Date Type Department Care Team (Late st Contact Info) Description 07/07/2022 Lab Requisition [facility] DermPath Lab [address] [place] [phone] Abdifatah Chun MD [facility] [place], [place] [phone] Social History Tobacco Use Types Packs/Day Years [...] Priority Date/Time Associated Diagnosis Comments DERMATOPATHOLOGY Routine 07/05/2022 12:0 0 AM MAJOR ACCOUNT MANAGER documented in this encounter Results * DERMATOPATHOLOGY (07/05/2022 12:00 AM MAJOR ACCOUNT MANAGER) Case Report Dermatopathology Report Case: [id number] Authorizing Provider: Abdifatah Chun MD Collected: 07/05/2022 12:00 AM Ordering Location: [facility] DermPath Lab Received: 07/07/2022 06:54 AM Pathologist: Ana Shaikh MD Specimens: A) - Skin, left thigh B) - Skin, left ant. tibia 4:53 PM [facility] DERMATOPATHOLOGY LABORATORY Final Diagnosis Specimen A. SKIN, left thigh: SQUAMOUS PROLIFERATION (D48.5) PRESENT AT MARGIN (see microscopic description and comment) Specimen B. SKIN, left ant. tibia: SQUAMOUS CELL CARCINOMA, WELL DIFFERENTIATED (C44.729) PRESENT AT MARGIN 4:53 PM [facility] DERMATOPATHOLOGY LABORATORY Clinical History A-B: R/O Neoplasm vs. PN. Please Check Margins. 4:53 PM [facility] DERMATOPATHOLOGY LABORATORY Gross Description Specimen A: Received is one formalin filled container labeled with the patient's name and designated left thigh. The specimen consists of a shave biopsy measuring 53w3x6gu and it is inked. Jar 0. Specimen B: Received is one formalin filled container labeled with the patient's name and designated left ant. tibia. The specimen consists of a shave biopsy measuring 52d36g3yj and it is inked. Jar 0. 4:53 PM [facility] DERMATOPATHOLOGY LABORATORY Microscopic Description Specimen A. SKIN, left thigh: Sections show maturational disarray and nuclear pleomorphism of keratinocytes extending throughout the full thickness of the specimen. There is focal parakeratosis. This lesion is present at the base of the specimen. Additional deeper sections were obtained and reviewed. COMMENT: The histological differential diagnosis includes an irritated and inflamed benign keratosis, an actinic keratosis, and squamous cell carcinoma. Specimen B. SKIN, left ant. tibia: Arising in the epidermis and extending into the dermis there are irregularly shaped aggregates of keratinocytes showing evidence of premature cornification. This lesion is present at the margin of the specimen. 4:53 PM [facility] DERMATOPATHOLOGY LABORATORY Disclaimer An external and internal positive and negative controls are appropriate for the histochemical, immunohistochemical and immunofluorescence stain(s) in this case (if any), except where stated explicitly. The performance characteristics of the stain(s) cited in this report were developed and its performance characteristic determined by the Dermatopathology Laboratory at [facility], directed by Dr. Trung Pimentel. These tests need not be, and therefore are not, approved by the [place] Food and Drug Administration. The tests are used for clinical purposes. Billing Codes Specimen Charges Stain Charges 73535 77288 1 1 3 4:53 PM MAJOR ACCOUNT MANAGER DERMATOPATHOLOGY LABORATORY Embedded Images 3 4:53 PM MAJOR ACCOUNT MANAGER DERMATOPATHOLOGY LABORATORY Pathology/Cytology TISSUE SPECIMEN FROM SKIN / Unknown 07/05/2022 07/07/2022 6:54 AM MAJOR ACCOUNT MANAGER Miscellaneous samples (specimen) TISSUE SPECIMEN FROM SKIN / Unknown 07/05/2022 07/07/2022 6:54 AM MAJOR ACCOUNT MANAGER Abdifatah Chun MD LAB - PATHOLOGY/CYTO LOGY ORDERABLES DERMATOPATHOLOGY LABORATORY [facility] - Department of Dermatology [facility] Specialized Medicine [address] [place] [address], [address] [phone] documented in this encounter Visit Diagnoses Not on filedocumented in this encounter Care Teams Powder Blender Relationship Specialty Start Date End Date Britney Brito PA [address] [place] [address] PCP - General 03/15/17 documented as of this encounter
--- OUTSIDE RECORDS SUMMARY | 2024-07-15 12:26 | XMS_ITS | Patient Health Summary ---
Author Organization [facility] Address [address] [place] [address] Care Team Providers Care Glass Designer Name Role Phone Britney Brito Primary Care Pr ovider Note from [facility],non-owned Affiliates and Associated Physician Practices is amultiple site organization consisting of ambulatory clinics and hospital sitesin [place], [place], [place] and [place]. This disclosure is being madepursuant to the Care Everywhere program and may not contain all information available regarding this patient. Last updated 18.[facility] Medications * Be aware that medications may not be up to date on this document. Alwaysverify current medications with the patient. * mupirocin (BACTROBAN) 2 % ointment(Started 06/13/2017) 11 refills left * clindamycin (CLEOCIN) 300 MG capsule(Started 06/08/2017) 300 mg 4X/day. * furosemide (LASIX) 20 MG tablet(Started 06/13/2017) Take 20 mg by mouth DAILY. * dapsone (DAPSONE) 25 MG tablet(Started 05/08/2017) 1 refill left * montelukast (SINGULAIR) 10 MG tablet(Started 03/15/2017) Take 10 mg by mouth DAILY. * fluticasone propionate (FLONASE) 50 MCG/ACT nasal spray(Started 03/15/2017) [place] 1 spray into each nostril DAILY. * atorvastatin (LIPITOR) 20 MG tablet(Started 03/15/2017) Take 10 mg by mouth DAILY. * vortioxetine (TRINTELLIX) 10 MG tablet(Started 03/15/2017) Take by mouth. * hydrOXYzine hcl (ATARAX) 25 MG tablet(Started 03/15/2017) Take 25 mg by mouth 3X/day PRN (Itching). * ziprasidone (GEODON) 80 MG capsule(Started 03/15/2017) Take by mouth. * doxepin (SINEQUAN) 25 MG capsule(Started 03/15/2017) Take 25 mg by mouth. * Calcium Carb-Cholecalciferol (CALCIUM + D3) 600-200 MG-UNIT(Started 03/15/2017) Take by mouth. * levothyroxine (SYNTHROID) 112 MCG tablet(Started 03/15/2017) Take 112 mcg by mouth DAILY. * metFORMIN (GLUCOPHAGE) 850 MG tablet(Started 03/15/2017) Take 850 mg by mouth 2 times daily with morning and evening meal. * temazepam (RESTORIL) 30 MG capsule(Started 03/15/2017) Take 30 mg by mouth. * desvenlafaxine SR 24hr (PRISTIQ;KHEDEZLA) 50 MG tablet(Started 03/15/2017) Take by mouth. 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 Social History Tobacco Use Types Packs/Day Years Used Date Smoking Tobacco: Every Day Smokeless Tobacco: Never Alcohol Use Standard Drinks/Week Comments No 0 (1 standard drink = 0.6 oz pur e alcohol) Sex and Gender Information Value Date Recorded Sex Assigned at Not on file Gender Identity Not on file Sexual Orientation Not on file Procedures * DERMATOPATHOLOGY(Performed 03/11/2024) * DERMATOPATHOLOGY(Performed 02/13/2024) * DERMATOPATHOLOGY(Performed 09/19/2023) * DERMATOPATHOLOGY(Performed 04/17/2023) * DERMATOPATHOLOGY(Performed 04/03/2023) * DERMATOPATHOLOGY(Performed 08/23/2022) * DERMATOPATHOLOGY(Performed 07/26/2022) * DERMATOPATHOLOGY(Performed 07/19/2022) * DERMATOPATHOLOGY(Performed 07/05/2022) * CBC W AUTO DIFFERENTIAL(Performed 06/09/2017) * CBC W AUTO DIFFERENTIAL(Performed 05/03/2017) * CBC W AUTO DIFFERENTIAL(Performed 04/24/2017) * CBC W AUTO DIFFERENTIAL(Performed 04/13/2017) * QUANTIFERON TB-GOLD(Performed 03/29/2017) * G6PD QUANTITATIVE(Performed 03/29/2017) * QUANTIFERON TB-GOLD(Performed 03/15/2017) * ASO TITER(Performed 03/15/2017) * CBC W AUTO DIFFERENTIAL(Performed 03/15/2017) * ERYTHROCYTE SEDIMENTATION RATE(Performed 03/15/2017) * COMPREHENSIVE METABOLIC PANEL(Performed 03/15/2017) * DERMATOPATHOLOGY(Performed 01/23/2017) Results * DERMATOPATHOLOGY (03/11/2024 12:00 AM CDT) Only the most recent of10 resultswithin the time period is included. Case Report Dermatopathology Report Case: [id number] Authorizing Provider: Abdifatah Chun MD Collected: 03/11/2024 12:00 AM Ordering Location: [facility] - Received: 03/12/2024 07:32 AM DermPath Lab [...] (see microscopic description and comment) 5:20 PM CDT DERMATOPATHOLOGY LABORATORY Clinical History A: SCC B: Bx proven SCC 5:20 PM CDT DERMATOPATHOLOGY LABORATORY Gross Description Specimen [...] measuring 8x9x3 mm. Jar 0. 5:20 PM CDT DERMATOPATHOLOGY LABORATORY Microscopic Description Specimen [...] squamous cell carcinoma cannot be ruled out. 4 5:20 PM CDT DERMATOPATHOLOGY LABORATORY Disclaimer An external and internal positive and negative controls are appropriate for the histochemical, immunohistochemical and immunofluorescence stain(s) in this case (if any), except where stated explicitly. The performance characteristics of the stain(s) cited in this report were developed and its performance characteristic determined by the Dermatopathology Laboratory at [facility], directed by Dr. Trung Pimentel. These tests need not be, and therefore are not, approved by the [place] Food and Drug Administration. The tests are used for clinical purposes. Billing Codes Specimen Charges Stain Charges 02371 [id number] 1 1 4 5:20 PM CDT DERMATOPATHOLOGY LABORATORY Embedded Images 4 5:20 PM CDT DERMATOPATHOLOGY LABORATORY Pathology/Cytology TISSUE SPECIMEN FROM SKIN / Unknown 03/11/2024 03/12/2024 7:32 AM CDT Miscellaneous samples (specimen) TISSUE SPECIMEN FROM SKIN / Unknown 03/11/2024 03/12/2024 7:32 AM CDT Abdifatah Chun MD LAB - PATHOLOGY/CYTO LOGY ORDERABLES DERMATOPATHOLOGY LABORATORY [facility] - Department of Dermatology [address], [address] [phone] * (ABNORMAL) CBC W AUTO DIFFERENTIAL (06/09/2017 7:32 AM CEO & FOUNDER) Only the most recent of5 resultswithin the time period is included. WBC 7.5 3.8 - 10.8 Thousand/u L [facility] ([facility]) RBC 3.77(L) 3.80 - 5.10 Million/uL [facility] ([facility]) Hemoglobin 11.6(L) 11.7 - 15.5 g/dL [facility] ([facility]) Hematocrit 36.4 35.0 - 45.0 % [facility]) MCV 96.6 80.0 - 100.0 fL [facility] ([facility]) MCH 30.8 27.0 - 33.0 pg [facility]) MCHC 31.9(L) 32.0 - 36.0 g/dL [facility] ([facility]) RDW-CV 13.7 11.0 - 15.0 % [facility]) Platelet 433(H) 140 - 400 Thousand/u L [facility] ([facility]) MPV 8.7 7.5 - 12.5 fL [facility] ([facility]) Neutrophils Absolute 4,193 1,500 - 7,800 cells/uL [facility] ([facility]) Lymphocyte Absolute Manual 1,845 850 - 3,900 cells/uL [facility] ([facility]) Monocytes Absolute 1283(H) 200 - 950 cells/uL [facility] ([facility]) Eosinophils Absolute 158 15 - 500 cells/uL [facility] ([facility]) Basophil Absolute Manual 23 0 - 200 cells/uL [facility] ([facility]) Neutrophils % 55.9 % [facility] Lymphocytes % 24.6 % [facility] Monocytes % 17.1 % [facility] Eosinophils % 2.1 % [facility] Basophil % 0.3 % [facility]) Comment: Test Performed at: [facility] [id number] [place] [address] CHICHI VAZQUEZ DO,MPH 06/09/2017 7:32 AM CEO & FOUNDER 06/09/2017 7:32 AM CEO & FOUNDER Sang Pascal MD LAB - HEMATOLOGY ORD ERABLES [facility] ([facility]) [address] * G6PD QUANTITATIVE (03/29/2017 11:27 AM CDT) Rtvpeco-8-Fxxvqjrj e Dehydrogenase 7.2 4.6 - 13.5 U/g Hgb [facility] ([facility]) Comment: Test Performed at: [facility] [address] [place] [address] AMY EDWARDS MD PHD 03/29/2017 11:2 7 AM CDT 03/29/2017 11:25 AM CDT Sang Pascal MD LAB - CHEMISTRY [place] [facility] ([facility]) * QUANTIFERON TB-GOLD (03/29/2017 11:27 AM CDT) Only the most recent of2 resultswithin the time period is included. [facility] QuantiFERON TB Gold NEGATIVE NEGATIVE [facility] ([facility]) Comment: Negative test result. M. tuberculosis complex infection unlikely. QuantiFERON Nil Value 0.00 IU/mL [facility] ([facility]) QuantiFERON Mitogen Value >10.00 IU/mL [facility] ([facility]) QuantiFERON TB Antigen minus Nil value 0.00 IU/mL [facility] ([facility]) Comment: The Nil tube value is used to determine if the patient has a preexisting immune response which could cause a false-positive reading on the test. In order for a test to be valid, the Nil tube must have a value of less than or equal to 8.0 IU/mL. The mitogen control tube is used to assure the patient has a healthy immune status and also serves as a control for correct blood handling and incubation. It is used to detect false-negative readings. The mitogen tube must have a gamma interferon value of greater than or equal to 0.5 IU/mL higher than the value of the Nil tube. The TB antigen tube is coated with the M. tuberculosis specific antigens. For a test to be considered positive, the TB antigen tube value minus the Nil tube value must be greater than or equal to 0.35 IU/mL. For additional information, please refer to http://education.[employer]/faq/QFT (This link is being provided for informational/ educational purposes only.) Test Performed at: [facility] [address] [place] [address] CHICHI VAZQUEZ DO,MPH 03/29/2017 11:2 7 AM CDT 03/29/2017 11:25 AM CDT Sang Pascal MD LAB - CHEMISTRY [place] [facility] ([facility]) * ASO TITER (03/15/2017 11:05 AM CDT) ASO <50 <200 IU/mL [facility] ([facility]) Comment: Test Performed at: [facility] [address] [facility] [place] [address] CHICHI VAZQUEZ DO,MPH 03/15/2017 11:0 5 AM CDT 03/15/2017 11:06 AM CDT Sang Pascal MD LAB - CHEMISTRY ORDE RABLES [facility] ([facility]) * ERYTHROCYTE SEDIMENTATION RATE (03/15/2017 11:05 AM CDT) Erythrocyte Sedimentation Rate [place] 11 < OR = 30 mm/h [facility] ([facility]) Comment: Test Performed at: [facility] [address] DANIEL RIGGS MD 03/15/2017 11:0 5 AM CDT 03/15/2017 11:06 AM CDT Sang Pascal MD LAB - HEMATOLOGY ORD ERABLES [facility] ([facility]) * (ABNORMAL) COMPREHENSIVE METABOLIC PANEL (03/15/2017 11:05 AM CDT) Glucose 124(H) 65 - 99 mg/dL [facility] ([facility]) Comment: Fasting reference interval For someone without known diabetes, a glucose value between 100 and 125 mg/dL is consistent with prediabetes and should be confirmed with a follow-up test. BUN 10 7 - 25 mg/dL [facility] ([facility]) Creatinine 0.67 0.50 - 1.05 mg/dL [facility] ([facility]) Comment: For patients >49 years of age, the reference limit for Creatinine is approximately 13% higher for people identified as -Thai. eGFR non- 100 > OR = 60 mL/min/1 .73m2 [facility] ([facility]) eGFR 116 > OR = 60 mL/min/1 .73m2 [facility] ([facility]) BUN/Creatinine Ratio NOT APPLICABLE 6 - 22 (calc) [facility] ([facility]) Sodium 137 135 - 146 mmol/L [facility] ([facility]) Potassium 5.0 3.5 - 5.3 mmol/L [facility]) Chloride 106 98 - 110 mmol/L [facility]) CO2 26 20 - 31 mmol/L [facility] ([facility]) Calcium 9.7 8.6 - 10.4 mg/dL [facility]) Protein Total 7.3 6.1 - 8.1 g/dL [facility]) Albumin 4.4 3.6 - 5.1 g/dL [facility]) Globulin 2.9 1.9 - 3.7 g/dL (calc) [facility]) Albumin/Globulin Ratio 1.5 1.0 - 2.5 (calc) [facility]) Bilirubin Total 0.4 0.2 - 1.2 mg/dL [facility]) Alkaline Phosphatase 74 33 - 130 U/L [facility]) AST 15 10 - 35 U/L [facility]) ALT 17 6 - 29 U/L [facility]) Comment: Test Performed at: [facility] [address] CHICHI VAZQUEZ DO,MPH 03/15/2017 11:0 5 AM CDT 03/15/2017 11:06 AM CDT Sang Pascal MD LAB - CHEMISTRY [place] [facility] ([facility]) Care Teams Glass Designer Relationship Specialty Start Date End Date Britney Brito PA [address] [place] [address] PCP - General 03/15/17
--- OUTSIDE RECORDS SUMMARY | 2024-07-15 12:26 | XMS_ITS | Referral Summary ---
Author Organization [facility] Address [address] [place] [address] Care Team Providers Care Transferrer Name Role Phone Britney Brito Primary Care Pr ovider Source Comments [facility],non-owned Affiliates and Associated Physician Practices is amultiple site organization consisting of ambulatory clinics and hospital sitesin [place], [place], [place] and [place]. This disclosure is being madepursuant to the Care Everywhere program and may not contain all information available regarding this patient. Last updated 18.[facility] Medications * Be aware that medications may not be up to date on this document. Alwaysverify current medications with the patient. Medication Sig Dispensed Refills Start Date End Date Status mupirocin (BACTROBAN) 2 % ointment 30 g 11 06/13/2017 Active clindamycin (CLEOCIN) 300 MG capsule 300 mg 4X/day. 0 06/08/2017 Active furosemide (LASIX) 20 MG tablet Take 20 mg by mouth DAILY. 06/13/2017 Active dapsone (DAPSONE) 25 MG tablet 120 tablet 1 05/08/2017 Active montelukast (SINGULAIR) 10 MG tablet Take 10 mg by mouth DAILY. 03/15/2017 Active fluticasone propionate (FLONASE) 50 MCG/ACT nasal spray [place] 1 spray into each nostril DAILY. 03/15/2017 Active atorvastatin (LIPITOR) 20 MG tablet Take 10 mg by mouth DAILY. 03/15/2017 Active vortioxetine (TRINTELLIX) 10 MG tablet Take by mouth. 03/15/2017 Active hydrOXYzine hcl (ATARAX) 25 MG tablet Take 25 mg by mouth 3X/day PRN (Itching). 03/15/2017 Active ziprasidone (GEODON) 80 MG capsule Take by mouth. 03/15/2017 Active doxepin (SINEQUAN) 25 MG capsule Take 25 mg by mouth. 03/15/2017 Active Calcium Carb-Cholecalciferol (CALCIUM + D3) 600-200 MG-UNIT Take by mouth. 03/15/2017 Activ e levothyroxine (SYNTHROID) 112 MCG tablet Take 112 mcg by mouth DAILY. 03/15/2017 Active metFORMIN (GLUCOPHAGE) 850 MG tablet Take 850 mg by mouth 2 times daily with morning and evening meal. 03/15/2017 Active temazepam (RESTORIL) 30 MG capsule Take 30 mg by mouth. 03/15/2017 Active desvenlafaxine SR 24hr (PRISTIQ;KHEDEZLA) 50 MG tablet Take by mouth. 03/15/2017 Active Active Problems Problem Noted Date Diagnosed Date [...] on file Sexual Orientation Not on file Plan of Treatment Not on file Care Teams Transferrer Relationship Specialty Start Date End Date Britney Brito PA [address] [place] [phone] PCP - General 03/15/17
--- OUTSIDE RECORDS SUMMARY | 2024-07-15 12:26 | XMS_ITS | Clinical Summary ---
Author Organization [facility] Address [address] [place] [address] Care Team Providers Care Active Directory Specialist Name Role Phone Britney Brito Primary Care Pr ovider Source Comments [facility],non-owned Affiliates and Associated Physician Practices is amultiple site organization consisting of ambulatory clinics and hospital sitesin [place], [place], [place] and [place]. This disclosure is being madepursuant to the Care Everywhere program and may not contain all information available regarding this patient. Last updated 18.[facility] Medications * Be aware that medications may [...] fluticasone propionate (FLONASE) 50 MCG/ACT nasal spray [place] 1 spray into each nostril DAILY. 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 Family History Medical History Relation Name Comments CVA Neg Hx Cancer - Breast Neg Hx Cancer - Other Neg Hx Cancer - Skin, Melanoma Neg Hx Cancer - Skin, Non Melanoma Neg Hx Eczema Neg Hx Hemophilia Neg Hx Psoriasis Neg Hx Social History Tobacco Use Types Packs/Day Years Used Date Smoking Tobacco: Every Day Smokeless Tobacco: Never Alcohol Use Standard Drinks/Week Comments No 0 (1 standard drink = 0.6 oz pur e alcohol) Sex and Gender Information Value Date Recorded Sex Assigned at Not on file Gender Identity Not on file Sexual Orientation Not on file Plan of Treatment Health Maintenance Due Date Last Done Comments COLOGUARD (AGES 45-75) - COL ON CA SCREENING 1964 COLON MONITORING 1964 COLONOSCOPY - COLON CA SCREENING 1964 CT COLONOGRAPHY - COLON CA SCREENING 1965 Colorectal Cancer Screening 1965 FIT - COLON CA SCREENING 1964 FLEX SIG - COLON CA SCREENING 1965 MAMMOGRAM 1965 MEDICARE AWV 12 MONTHS 1965 PAP SMEAR 1964 HIV SCREENING 02/09/1979 HEPATITIS C SCREENING 02/05/1982 DTAP/TDAP/TD VACCINES (1 - Tdap) 02/09/1983 PNEUMOCOCCAL VACCINE 50+ (1 of 2 - PCV) 02/09/1983 PNEUMOCOCCAL VACCINE (1 of 2 - PCV) 02/09/1983 ZOSTER VACCINE (1 of 2) 02/09/2014 COVID-19 VACCINE (1 - 2024-2 5 season) 2024 INFLUENZA VACCINE (#1) 2024 DEPRESSION SCREENING 06/05/2024 Respiratory Syncytial Virus (RSV) Vaccine Pt: or over 60 yrs (1 - 1-dose 75+ series) 02/09/2039 HEPATITIS B VACCINE Aged Out No longe r eligible based on patient's age to complete this topic HIB VACCINE Aged Out No longer eligi ble based on patient's age to complete this topic HPV VACCINE Aged Out No longer eligi ble based on patient's age to complete this topic MENINGOCOCCAL (Group B) VACCINE Aged Out No longer eligible based on patient's age to complete this topic MENINGOCOCCAL VACCINE Aged Out No kaylin aj eligible based on patient's age to complete this topic Care Teams Active Directory Specialist Relationship Specialty Start Date End Date Britney Brito PA [address] [place] [address] PCP - General 03/15/17
--- OUTSIDE RECORDS SUMMARY | 2024-07-15 12:26 | XMS_ITS ---
Author Organization [facility] Address [address] [place] [address] Care Team Providers Care Food Service Helper Name Role Phone Britney Pretty Primary Care Provider Alejandro DUQUE MD, HAYES Thompson REASON FOR VISIT ERCP Encounters Encounter Location Date Provider Diagnosis [facility] [address] [place] [address] 12/20/2023 HAYES DUQUE PLAN OF TREATMENT No Information Progress Notes * Ivis LEDESMADOB:1965 (59 yo F)Acc No.[id number]:12/20/2023 Patient: Ivis LEDESMA Provider: Hayes Duque MD, FASGE :1965 Age:58 Y Sex:Female Date:12/20/2023 Address:[address] [place], [place] [id number] Pcp:FERMÍN Jones * Images: * Sign off status: Pending * Provider: Hayes Duque MD, FASGE Date: 12/20/2023
--- OUTSIDE RECORDS SUMMARY | 2024-07-15 12:26 | XMS_ITS | Clinical Summary ---
Author Organization [facility] Address [facility] [place] [address] Care Team Providers Care Strainer Tender Name Role Phone Jonh Britney FERMÍN Primary Care Provider [phone] Allergies Active Allergy Reactions Criticality Noted Date Comments Amoxicillin-Pot Clavulanate Itching 12/20/19 24 Medications albuterol sulfate HFA 108 (90 Base) MCG/ACT inhaler Inhale 2 puffs into the lungs every 4 (four) hours as needed for Wheezing or Shortness of breath. 4 Active atorvastatin (LIPITOR) 10 MG tablet Take 1 tablet (10 mg total) by mouth nightly at bedtime. 4 Active albuterol (PROVENTIL) (2.5 MG/3ML) 0.083% nebulizer solution Take 3 mLs (2.5 mg total) by nebulization every 4 (four) hours as needed for Shortness of breath or Wheezing. 3 Active cetirizine (ZYRTEC) 10 MG tablet Take 1 tablet (10 mg total) by mouth daily as needed for Allergies. 4 Active cyanocobalamin (B-12) 1000 MCG/ML injection Inject 1 mL (1,000 mcg total) into the muscle every 30 (thirty) days. 4 Active doxepin (SINEQUAN) 25 MG capsule Take 1 capsule (25 mg total) by mouth nightly at bedtime. 4 Active DUPIXENT 300 MG/2ML injection (PEN) Inject 2 mLs (300 mg total) into the skin every 14 (fourteen) days. Last dose taken today. 12/20/23 4 Active vitamin D2, ergocalciferol, (DRISDOL) 1.25 mg capsule Take 1 capsule (1.25 mg total) by mouth every 7 days. On Saturdays 4 Active fluticasone propionate (FLONASE) 50 MCG/ACT nasal spray 2 sprays by Each Nostril route 2 (two) times daily as needed for Allergies. 3 Active ONETOUCH VERIO test strip 1 strip by Other route as needed. 4 Active hydrOXYzine (ATARAX) 50 MG tablet Take 1 tablet (50 mg total) by mouth nightly at bedtime. 4 Active Lancets (ONETOUCH DELICA PLUS [id number]) Misc 1 Units as needed. 4 Active SYNTHROID 150 MCG tablet Take 1 tablet (150 mcg total) by mouth daily. 4 Active liothyronine (CYTOMEL) 5 MCG Tab Take 1 tablet (5 mcg total) by mouth 2 (two) times daily. 4 Active metFORMIN (GLUCOPHAGE) 850 MG tablet Take 1 tablet (850 mg total) by mouth 3 (three) times daily with meals. 4 Active MYRBETRIQ 50 MG 24 hr tablet Take 1 tablet (50 mg total) by mouth nightly at bedtime. 4 Active montelukast (SINGULAIR) 10 MG tablet Take 1 tablet (10 mg total) by mouth nightly at bedtime. 4 Active pregabalin (LYRICA) 50 MG capsule Take 1 capsule (50 mg total) by mouth 3 (three) times daily with meals. 4 Active JANUVIA 100 MG tablet Take 1 tablet (100 mg total) by mouth every morning. 4 Active traZODone (DESYREL) 150 MG tablet Take 1 tablet (150 mg total) by mouth nightly at bedtime. 4 Active valsartan (DIOVAN) 80 MG tablet Take 1 tablet (80 mg total) by mouth daily. 4 Active TRINTELLIX 10 MG tablet Take 1 tablet (10 mg total) by mouth daily. 4 Active ziprasidone (GEODON) 80 MG capsule Take 1 capsule (80 mg total) by mouth 2 (two) times daily. 4 Active desvenlafaxine ER 100 MG TABLET SR 24 HR 24 hr tablet Take 100 mg by mouth daily. Active budesonide-form oterol (BREYNA) 80-4.5 MCG/ACT inhaler Inhale 2 puffs into the lungs 2 (two) times daily. Active furosemide (LASIX) 20 MG tablet Take 1 tablet (20 mg total) by mouth daily. Active amLODIPine (NORVASC) 5 MG tablet Take 1 tablet (5 mg total) by mouth daily. 30 tablet 3 4 Active HYDROcodone-davin taminophen (NORCO) 10-325 MG tabletIndicatio ns:Acute Pain < 7 Day Supply Take 1 tablet by mouth every 4 (four) hours as needed. Indications: Acute Pain < 7 Day Supply 21 tablet 4 Active naloxone (NARCAN) 4 MG/0.1ML nasal spray 1 spray by Nasal route as needed for Opioid reversal. may repeat every 2 to 3 minutes in alternating nostrils until medical assistance becomes available 1 each 4 12/28/19 Active naLOXone (NARCAN) 0.4 mg/mL injection Inject 1 mL (0.4 mg total) into the muscle once as needed (Opioid reversal). 1 mL 4 12/28/19 Active Active Problems Problem Noted Date Diagnosed Date Pyelonephritis 12/22/2023 Choledocholithiasis 12/20/2023 Family History Medical History Relation Comments Diabetes Brother Cirrhosis Father Depression Mother Diabetes Mother Heart Disease Mother Breast Cancer Sister Depression Sister Relation Status Comments Brother Alive Father Mother Sister Social History Tobacco Use Types Packs/Day Years Used Date Smoking Tobacco: Every Day Cigarettes 1 47.1 Started: 1978 Smokeless Tobacco: Current Alcohol Use Standard Drinks/Week Comments Not Currently 0 (1 standard drink = 0.6 oz pur e alcohol) [facility] Utilities Answer Date Recorded In the past 12 months has e [employer], gas, oil, or water [employer] threatened to shut off services in your home? No 12/22/2023 Humiliation, Afraid, Rape, and Kick questionnair e Answer Date Recorded Within the last year, have y ou been afraid of your partner or ex-partner? No 12/22/2023 Within the last year, have y ou been humiliated or emotionally abused in other ways by your partner or ex-partner? No Within the last year, have y ou been kicked, hit, slapped, or otherwise physically hurt by your partner or ex-partner? No 12/22/2023 Within the last year, have y ou been raped or forced to have any kind of sexual activity by your partner or ex-partner? No 12/22/2023 Overall Financial Resource Strain (CARDIA) Answe r Date Recorded How hard is it for you to pa y for the very basics like food, housing, medical care, and heating? Not hard at all 12/22/2023 Hunger Vital Sign Answer Date Recorded Within the past 12 months, y ou worried that your food would run out before you got the money to buy more. Never true 12/22/19 24 Within the past 12 months, t he food you bought just didn't last and you didn't have money to get more. Never true 12/22/2023 PRAPARE - Transportation Answer Date Re corded In the past 12 months, has l ack of transportation kept you from medical appointments or from getting medications? No 12/03 In the past 12 months, has l ack of transportation kept you from meetings, work, or from getting things needed for daily living? No 12/22/2023 Housing Stability Vital Sign Answer Davonte e Recorded In the last 12 months, was t here a time when you were not able to pay the mortgage or rent on time? No 12/22/2023 In the past 12 months, how m any times have you moved where you were living? 0 12/22/2023 At any time in the past 12 m [facility], were you homeless or living in a retirement (including now)? No 12/22/2023 Comments No Sex and Gender Information Value Date Recorded Sex Assigned at Not on file Legal Sex Female 8:30 AM CDT Gender Identity Not on file Sexual Orientation Not on file Last Filed Vital Signs Vital Sign Reading Time Taken Comments Blood Pressure 147/88 12/28/2023 11:12 AM CDT Pulse 82 12/28/2023 11:12 AM CDT Temperature 36.9 C (98.4 F) 12/28/2023 11:12 AM CDT Respiratory Rate 18 12/28/2023 11:12 AM CDT Oxygen Saturation 99% 12/28/2023 11:12 AM CDT Inhaled Oxygen Concentration - - Weight 82.1 kg (181 lb) 12/24/2023 4:01 AM CDT Height 160 cm (5' 3 ) 12/22/2023 10:19 AM CDT Body Mass Index 32.06 12/22/2023 10:19 AM CDT Plan of Treatment Upcoming Encounters Date Type Department Care Team (Latest Contact Info) Description 07/25/2024 7:30 AM ENFORCEMENT OFFICER Hospital Encounter [facility] [place] [address] Zac Lucero MD [address] [place] [address] 07/25/2024 7:30 AM ENFORCEMENT OFFICER - 07/25/2024 8:50 AM ENFORCEMENT OFFICER Surgery [facility] [place] [address] Zac Lucero MD [address] [place] [address] [place] [address] [phone] OPEN REPAIR UMBILICAL HERNIA WITH MESH AND EXCISION OF UMBILICUS Scheduled Procedures Name Priority Associated Diagnoses Date/Ti me HERNIORRHAPHY UMBILICAL UMBILICAL HERNIA K42.9 07/25/2024 7:30 AM ENFORCEMENT OFFICER Health Maintenance Due Date Last Done Comments Cervical Cancer Screening Pap Smear (Age 30 to 64) Every 3 Years 1965 Colorectal Cancer Screening Colonoscopy (10 Years) 1965 Annual Physical 02/09/1967 Hepatitis C 02/09/1982 DTaP, Tdap and Td Vaccines (1 - Tdap) 02/09/1983 Cervical Cancer Screening Pap with HPV Testing (Age 30 to 64) Every 5 Years 02/09/1994 Cervical Cancer Screening with HPV 02/09/1994 Mammogram Screening 2004 Lung Cancer Screening 02/09/2014 COVID-19 Vaccine ( season) 2024 05/09/2022, 01/03/2022, 04/24/2021, Additional history exists Influenza Adult (#1) 2024 01/16/2022, 02/15/2021, 02/13/2020, Additional history exists PHQ-2 (Physician [place]) 06/05/2024 RSV Immunization or 60+ Years (1 - 1-dose 75+ series) 02/09/2039 Zoster Vaccines Completed 11/03/2017, 06/2017, 09/02/2017, Additional history exists Pneumococcal Vaccine: Pediatrics (0 to 5 Years) and At-Risk Patients (6 to 64 Years) Completed 01/16/2022, 05/31/2008, 03/31/2008 Meningococcal B Vaccine Aged Out No l onger eligible based on patient's age to complete this topic Meningococcal Vaccine Aged Out No kaylin aj eligible based on patient's age to complete this topic RSV Immunizations Under 20 Months Aged Out No longer eligible based on patient's age to complete this topic Goals Goal Patient Goal Type Associated Problems Recent Progress Patient-Stated? Author Health - patient able to perform ADLs independently Lifestyle No Gilbert Daniel RN Health - patient able to perform ADLs independently Lifestyle No Danette Colon RN Medical Devices Implanted Type Area Language Pathologist Device Identifier Shelf Expiration Date Model / Serial / Lot Shoulder Components Shoulder Components Stent Advanix Biliary 7fr 7cm - [id number] Implanted:Qty: 1 on 12/20/2023 by Hayes Villanueva MD at [facility] Stent N/A: Bile Duct [employer] 10/19/2024 [id number] / [id number] / [id number] Jatindernen Pancreatic Stent Implanted:Qty: 1 on 12/20/2023 by Hayes Villanueva MD at [facility] 07/06/2024 / [id number] / [id number] Insurance MEDICAID MEDICARE Advance Directives * Full Code (Latest Code Status on File) Date Activated Date Inactivated Comments 12/22/2023 3:06 PM 12/28/2023 3:04 PM * Full Code Date Activated Date Inactivated Comments 12/20/2023 4:49 PM 12/21/2023 3:22 PM Care Teams Strainer Tender Relationship Specialty Start Date End Date Britney Borja PA [address] [place] [id number] PCP - General PHYSICIAN RESEARCH STUDY ASSISTANT 12/23/23
--- OUTSIDE RECORDS SUMMARY | 2024-07-15 12:26 | XMS_ITS | Clinical Summary ---
Author Organization [facility] Address [address] [address] Care Team Providers Care Daycare Assistant Name Role Phone Britney Borja Primary Care Provider [phone] Allergies Active Allergy Reactions Criticality Noted Date Comments Amoxicillin-Pot Clavulanate Itching Medium 12/10/19 21 Medications fluticasone (FLONASE) 50 mcg/spray [place], Suspension 1 [place]. 03/15/20 17 Active desvenlafaxine 50 mg Extended Release 24 hour tablet Take by mouth. 03/15/20 17 Active furosemide (LASIX) 20 mg tablet Take 20 mg by mouth. 06/13/19 18 Active hydrOXYzine HCl (ATARAX) 25 mg tablet Take 25 mg by mouth. 03/15/20 17 Active COMBIVENT RESPIMAT 20-100 mcg/actuation Mist 01/08/20 18 Active metFORMIN (GLUCOPHAGE) 850 mg tablet 12/14/19 18 Active montelukast (SINGULAIR) 10 mg tablet 01/02/20 18 Active TRINTELLIX,BRINT ELLIX 10 mg tablet 01/17/20 18 Active ziprasidone (GEODON) 80 mg Capsule 12/28/19 18 Active doxepin (SINEquan) 25 mg capsule Take 25 mg by mouth. 03/15/20 17 Active arformoterol (BROVANA) 15 mcg/2 mL Solution for Nebulization Take 15 mcg by inhalation one time only. Active budesonide (PULMICORT RESPULE) 0.5 mg/2 mL Suspension for Nebulization Take by inhalation one time only. Active ipratropium-albu terol (DUONEB) 0.5 mg-3 mg(2.5 mg base)/3 mL Solution for Nebulization Take 3 mL by inhalation. Active pregabalin (LYRICA) 50 mg Capsule Take 50 mg by mouth every 8 hours. Active acetaminophen-co deine (TYLENOL #3) 300-30 mg tablet acetaminophen 300 mg-codeine 30 mg tablet TAKE 1 TABLET BY MOUTH TWICE A DAY NEEDED Active atorvastatin (LIPITOR) 10 mg tablet atorvastatin 10 mg tablet Active ipratropium-albu teroL (Combivent Respimat) 20-100 mcg/actuation Mist Combivent Respimat 20 mcg-100 mcg/actuation solution for inhalation INHALE ONE PUFF BY MOUTH FOUR TIMES A DAY NEEDED Active levothyroxine (SYNTHROID) 137 mcg tablet Synthroid 137 mcg tablet TAKE 1 TABLET BY MOUTH EVERY DAY IN THE MORNING Active valsartan (DIOVAN) 80 mg tablet valsartan 80 mg tablet TAKE 1 TABLET BY MOUTH EVERY DAY Active mirabegron (Myrbetriq) 50 mg Extended Release 24 hour tablet Myrbetriq 50 mg tablet,extended release Active exenatide microspheres (Bydureon BCise) 2 mg/0.85 mL Auto-Injector Bydureon BCise 2 mg/0.85 mL subcutaneous auto-injector Active hydrocortisone (ZHANNA-AID) 0.5 % Cream hydrocortisone 0.5 % topical cream apply bid to affected area Active traMADoL (ULTRAM) 50 mg tablet tramadol 50 mg tablet Active traZODone (DESYREL) 150 mg tablet trazodone 150 mg tablet Active cyanocobalamin, vitamin B-12, (VITAMIN B-12 INJECTION) by Injection route. Active calcium as carbonate (CALTRATE) 1,500 mg (600 mg elemental) Tablet Take by mouth. Activ e calcium carbonate + vitamin D (CALTRATE+D) 600 mg-10 mcg (400 unit) Tablet Take by mouth. Ac tive Active Problems Problem Noted Date Diagnosed Date MGUS (monoclonal gammopathy of unknown significa nce) 01/22/2018 Encounters Date Type Department Care Team Description 06/26/2024 External Device Data STL ABSTRACTION Provider, Abstract 06/25/2024 External Device Data STL ABSTRACTION Provider, Abstract 06/19/2024 External Device Data STL ABSTRACTION Provider, Abstract 06/11/2024 External Device Data STL ABSTRACTION Provider, Abstract from Last 3 Months Family History Medical History Relation Name Comments Diabetes Mother Heart Disease Mother Relation Name Status Comments Father Mother Social History Tobacco Use Types Packs/Day Years Used Date Smoking Tobacco: Every Day Cigarettes Smokeless Tobacco: Never Alcohol Use Standard Drinks/Week Comments Yes 0 (1 standard drink = 0.6 oz pur e alcohol) Comments No Sex and Gender Information Value Date Recorded Sex Assigned at Not on file Legal Sex Female 5:22 PM CDT Gender Identity Not on file Sexual Orientation Not on file Last Filed Vital Signs Vital Sign Reading Time Taken Comments Blood Pressure 124/67 12/08/2022 3:30 PM CDT Pulse 89 12/08/2022 3:30 PM CDT Temperature 36.8 C (98.2 F) 12/08/2022 3:30 PM CDT Respiratory Rate 10 12/08/2022 3:30 PM CDT Oxygen Saturation 98% 12/08/2022 3:30 PM CDT Inhaled Oxygen Concentration - - Weight 73.9 kg (163 lb) 12/08/2022 3:30 PM CDT Height 157.5 cm (5' 2 ) 12/08/2022 3:30 PM CDT Body Mass Index 29.81 12/08/2022 3:30 PM CDT Plan of Treatment Upcoming Encounters Date Type Department Care Team (Late st Contact Info) Description 01/23/2025 10:00 AM CDT Office Visit [facility] Oncology and Hematology - [place] [address] [facility] [address] [place] [address] Sincere Feliz MD [address] [place] [address] Health Maintenance Due Date Last Done Comments DIABETES ANNUAL FOOT EXAM 02/09/1982 DIABETES MICROALBUMIN ANNUAL SCREEN 02/09/1982 LDL CHOLESTEROL ANNUAL 02/09/1982 DTAP/TDAP/TD VACCINES (1 - Tdap) 02/09/1983 BREAST CANCER SCREENING 2004 FIT-DNA Q 3 years 02/09/2009 FIT/FOBT Q 1 year 02/09/2009 Flex Sig/CT Colonography Q 5 years 02/09/2009 PNEUMOCOCCAL VACCINE 0-64 YEARS (2 of 2 - PCV) 05/31/2009 05/31/2008, 03/31/2008 ZOSTER VACCINE (2 of 3) 12/29/2017 11/04/19 18, 09/02/2017, 09/01/2015 DIABETES ANNUAL RETINAL EXAM 02/07/2020 02/06/2019, 02/06/2019, 12/04/2015, Additional history exists DIABETES HBA1C Q 6 MONTHS 11/07/20232022, 12/12/2022, 06/03/2022, Additional history exists INFLUENZA VACCINE (#1) 2024 0, 04/22/2019, 03/20/2019, Additional history exists RSV VACCINE (60+ or ) (1 - Risk 60-74 years 1-dose series) 2024 CERVICAL CANCER SCREENING 06/07/20252022, 06/07/2022, 01/13/2020, Additional history exists COLORECTAL SCREENING 01/07/2030 01/08/2020, 01/08/2020, 01/08/2020, Additional history exists Colorectal Cancer Screening 01/07/2030 HEPATITIS B VACCINES Aged Out No long er eligible based on patient's age to complete this topic Insurance MEDICARE PART A [place] B MEDICAID [place] MED[place] PART A [place] Care Teams Daycare Assistant Relationship Specialty Start Date End Date Britney Borja PA PCP - General Physician Joggle Press Operator 01/22/18
--- OUTSIDE RECORDS SUMMARY | 2024-07-15 12:26 | XMS_ITS | Continuity of Care Document ---
Author Organization [facility] Address [address] [place] [address] [address] [place] [address] Phone Care Team Providers Care Financial Controller Name Role Phone Rema Cortez Unavailable Unavailable Advance Directives Directive Yes / No Effective Date File Name No Information Encounters Encounter Description Practice Location Reason(s) For Visit Diagnoses Date Provider Providers Copied on Encounter [facility], [address], [place], [place], [id number], [place] tel:[phone] [facility] No Information May-0 6-200 2 Dana Hodgson. [address] [facility] , [address], [place], [address], [place]. tel:[phone] Family History Family Member Type Diagnosis Age At Onset No Information Payers Payer name Insurance type Covered green party ID Authoriza tion(s) [place] [id number] Social History Type Description Quantity Date Captured [...]
--- OUTSIDE RECORDS SUMMARY | 2024-07-15 12:26 | XMS_ITS | Patient Health Record ---
Author Organization [facility] Address [address] [facility] [facility] [address] [place] [address] Care Team Providers Care Machine Load Clerk Name Role Phone Britney Pretty Primary Care Provider Alejandro DUQUE MD, PARVIZ Unavailable REASON FOR REFERRAL No Information PROBLEMS Problem Type ICD Code Onset Dates Problem Status W/U Status Risk SNOMED Code Notes Problem Obstruction of bile duct (K83.1) Active confirmed Obstruction of bile duct (37875510) Encounters Encounter Location Date Provider Diagnosis [facility] [address] [facility] [place] [address] 12/20/2023 PARVIZ ALIPERTI [facility] - [facility] [address] [facility] [facility] [place] [id number] 01/15/2024 PARVIZ ALIPERTI [facility] [address] [facility] [address] [place] [address] 12/19/2023 PARVIZ ALIPERTI [facility] [address] [facility] [address] [place] [address] 01/10/2024 PARVIZ ALIPERTI PLAN OF TREATMENT Pending Test Test Name Order Date Endoscopic Retrograde Cholangiopancreato graphy (ERCP) 12/19/2023 Endoscopic Retrograde Cholangiopancreato graphy (ERCP) 01/10/2024 Insurance Providers Payer Name Payer Address Payer Phone Subscriber Number Group Number Insured Name Patient Relationship to Insured Coverage Start Date Coverage End Date [place] [address] [place] [id number] Ivis Manriquez Self - patient is the insured [place] - Secondary to Medicare/[facility] [address] [address] [place], [place] [id number] Ivis Manriquez Self - patient is the insured
--- OUTSIDE RECORDS SUMMARY | 2024-07-15 12:26 | XMS_ITS | CONTINUITY OF CARE DOCUMENT ---
Author Name sergeyisidoro, sergeyisidoro Address Unknown Organization [facility] Address [address] [place] [address] Phone [phone] Care Team Providers Care Instrument Inspector Name Role Phone Natasha PADRON, Mak Unavailable [phone] Kemi WHIZZER HAND, Gris Unavailable [phone] GARCIA HILL Unavailable [phone] PROBLEMS Condition Status Date Provider Notes Screening examination active Mak Kaur MD Hyperlipidemia active Mak Kaur MD Hypertension active Mak Kaur MD Pericardial effusion active Mak Berger Chest pain-type to be determined active Anastacio Kaur MD Tobacco abuse active Mak Kaur MD ENCOUNTERS Date Type Provider Location Encounter Diag nosis 08/31 - 08/31 In-person encounter Office Visit Mak Kaur MD [place] [facility] Screening examinationHyperlipidemiaHypertensionPericardial effusionChest pain-type to be determinedTobacco abuse VITAL SIGNS Date Observation Value Provider Body Mass Index (Ratio) 33.47 kg/m2 Peter Kaur MD blood pressure, diastolic 71 mm[Hg] Romina nkLogelpidio blood pressure, systolic 121 mm[Hg] Sushma Godinez blood pressure, diastolic 71 mm[Hg] Nadine Allred blood pressure, systolic 121 mm[Hg] Марина Allred respiratory rate E&M 18 /min Alejandro Allred oxygen saturation, oximetry 98 % Alvin Allred pulse rate 86 /min Alvin sauer blood pressure, cuff size regular Nadine Allred weight E&M 183 [lb_av] Alvin sauer height E&M 62 [in_i] Alvin sauer HISTORY OF MEDICATION USE Medication Status Instructions Dates Provider Indications Com ments Januvia 100 mg tablet active 1 tablet once a day Mak odell MD metformin 500 mg tablet active 1 1/2 tablet three times a day Mak Kaur MD Synthroid 150 mcg tablet active 1 tablet single dose Mak Kaur MD Trintellix 10 mg tablet active 1 tablet once a day Mak odell MD Geodon 80 mg capsule active 1 capsule once a day Mak Kaur MD Pristiq 100 mg tablet extended release 24 hr active 1 tablet once a day Mak odell MD losartan 25 mg tablet active 1 tablet once a day Mak odell MD doxepin 100 mg capsule active 1 capsule once a day Mak Kaur MD Singulair 10 mg tablet active 1 tablet once a day Mak odell MD furosemide 20 mg tablet active 1 tablet once a day Mak odell MD SOCIAL HISTORY Date Observation Value Provider passive cigarette sm efrain exposure yes Mak Kaur MD smoking history, tot al pack/day 1 Mak Kaur MD cigarette use yes Mak Kaur MD smoking status Current every day smoker R jenny Kaur MD social history E&M Marital Statu s: Yumiko miller: O ccupation: Mak Kaur MD social history reviewed E&M revi ewed - no changes required Mak Kaur MD FAMILY HISTORY Family Member Condition Mother Family History of Co ronary Artery Disease: INSURANCE PROVIDERS Payer name Policy type / Coverage type [place] red democrat ID HEALTHCARE AND FAMILY SERVICES Medicaid 0 [id number] [place] MEDICARE Medicare [id number] TREATMENT PLAN Date Name Performer [id number],S, Mak odell MD [id number],S, Mak odell MD [id number], Mak odell MD [id number],N, Mak odell MD Cardiology Mak Kaur MD Cardiology Mak Kaur MD Cardiology Mak Kaur MD Cardiology Mak Kaur MD Date Name Stress Exercise Card iolite Complete Echo HISTORY OF PROCEDURES Procedure Date Procedure Name Provider Procedure Notes S tatus EKG Mak Kaur MD complete d
--- OUTSIDE RECORDS SUMMARY | 2024-07-15 12:26 | XMS_ITS ---
Author Organization [facility] Address [address] [place] [address] Care Team Providers Care Brim Edge Trimmer Name Role Phone Britney Pretty Primary Care Provider Alejandro DUQUE MD, HAYES Unavailable REASON FOR VISIT ERCP w/stent pull/No Auth Req* Encounters Encounter Location Date Provider Diagnosis [facility] - Op [address] GI Scheduling [place], [place] [id number] 01/15/2024 HAYES DUQUE PLAN OF TREATMENT No Information Progress Notes * Ivis LEDESMADOB:1965 (59 yo F)Acc No.[id number]:01/15/2024 Patient: Ivis LEDESMA Provider: Hayes Duque MD, FASGE :1965 Age:58 Y Sex:Female Date:01/15/2024 Address:[address] [place], [place] [address] Pcp:FERMÍN Jones * Images: * Sign off status: Pending * Provider: Hayes Duque MD, FASGE Date: 01/15/2024
== END 2024-07-15 11:45 | disposition home or self-care (01) ==
PROVIDERS: PCP Internal Medicine Gastroenterology
DX: F33.1 Major depressive disorder, recurrent, moderate (principal); F41.1 Generalized anxiety disorder; G89.4 Chronic pain syndrome; M47.22 Other spondylosis with radiculopathy, cervical region; M47.23 Other spondylosis with radiculopathy, cervicothoracic region; M47.24 Other spondylosis with radiculopathy, thoracic region; F44.1 Dissociative fugue
CPT/HCPCS: 72050; 72070; 72100

== ENCOUNTER 2025-01-20 14:33 | Outpatient (CLI) | payer OTHER, MEDICAID, SELFPAY ==
[2025-01-20 14:50] LABS: Hematocrit 37.4 % (37.0-47.0); Hemoglobin 13.2 g/dL (12.0-15.0); Immature Granulocyte Percent A 0.2 % (0-0.5); Lymphocytes Absolute Auto 2.77 K/mm3 (0.9-3.2); Mean Corpuscular HGB Conc 35.3 g/dl (32-36); Mean Corpuscular Hemoglobin 30.6 pg (26-34); Mean Corpuscular Volume 86.8 fl (80-100); Nucleated Red Blood Cells Absolute Auto 0.000 K/mm3 (0.0-0.012); Nucleated Red Blood Cells Perc 0.0 % (0.0-0.2); Platelet Count Result 341 k/mm3 (150-375); Red Blood Count 4.31 M/mm3 (4.2-5.4); White Blood Count 8.2 K/mm3 (4.5-10.0)
--- OUTSIDE RECORDS SUMMARY | 2025-01-20 15:41 | XMS_ITS | Encounter Summary ---
Author Organization [facility] Address [address] [facility] [place] [address] Care Team Providers Care Senior Clinical Data Manager Name Role Phone Britney Brito Primary Care Pr ovider Encounter Details Date Type Department Care Team (Late st Contact Info) Description 04/19/2023 Lab Requisition [facility] - DermPath Lab [address] [place] [phone] Abdifatah Chun MD [address] [place], [place] [phone] Social History Tobacco Use Types Packs/Day Years Used Date Smoking Tobacco: Every Day Smokeless Tobacco: Never Alcohol Use Standard Drinks/Week Comments No 0 (1 standard drink = 0.6 oz pur e alcohol) Comments Unknown Sex and Gender Information Value Date Recorded Sex Assigned at Not on file Legal Sex Female 5:19 PM PEOPLESOFT CRM DEVELOPER Gender Identity Not on file Sexual Orientation Not on file documented as of this encounter Plan of Treatment Not on file documented as of this encounter Procedures Procedure Name Priority Date/Time Associated Diagnosis Comments DERMATOPATHOLOGY Routine 04/17/2023 12:0 0 AM PEOPLESOFT CRM DEVELOPER documented in this encounter Results * DERMATOPATHOLOGY (04/17/2023 12:00 AM PEOPLESOFT CRM DEVELOPER) Case Report Dermatopathology Report Case: [id number] Authorizing Provider: Abdifatah Chun MD Collected: 04/17/2023 12:00 AM Ordering Location: [facility] DermPath Lab Received: 04/19/2023 09:18 AM Pathologist: Ana Shaikh MD Specimen: Skin, left lat lower leg 3 2:12 PM [facility] [[email or web address]] DERMATOPATHOLOGY LABORATORY Final Diagnosis Specimen A. SKIN, left lat lower leg: GRANULATION TISSUE, FRAGMENTS OF (L92.9) (see microscopic description and comment) 3 2:12 PM [facility] [[email or web address]] DERMATOPATHOLOGY LABORATORY at 1412 PEOPLESOFT CRM DEVELOPER Clinical History Bx Proven Can't R/O SCC Check Margins and Prior Biopsy 3 2:12 PM [facility] [[email or web address]] DERMATOPATHOLOGY LABORATORY Gross Description Specimen A: Received is one formalin filled container labeled with the patient's name and designated left lat lower leg. The specimen consists of a(3) pieces in aggregate shave biopsy measuring 5x5x1 mm. Jar 0. 3 2:12 PM [facility] [[email or web address]] DERMATOPATHOLOGY LABORATORY Microscopic Description Specimen A. SKIN, left lat lower leg: The specimen is fragmented. Sections show edema, an increased number of thin-walled vessels and a prominent mixed inflammatory infiltrate. COMMENT: Given the superficial and fragmented nature of the biopsy specimen, a deeper process cannot be excluded. 3 2:12 PM [facility] [[email or web address]] DERMATOPATHOLOGY LABORATORY Disclaimer An external and internal positive and negative controls are appropriate for the histochemical, immunohistochemical and immunofluorescence stain(s) in this case (if any), except where stated explicitly. The performance characteristics of the stain(s) cited in this report were developed and its performance characteristic determined by the Dermatopathology Laboratory at [facility], directed by Dr. Trung Pimentel. These tests need not be, and therefore are not, approved by the [place] Food and Drug Administration. The tests are used for clinical purposes. Billing Codes Specimen Charges Stain Charges 74828 1 3 2:12 PM [facility] [[email or web address]] DERMATOPATHOLOGY LABORATORY Embedded Images 3 2:12 PM [facility] [[email or web address]] DERMATOPATHOLOGY LABORATORY Pathology/Cytolog y TISSUE SPECIMEN FROM SKIN / Unknown 04/17/2023 04/19/2023 9:18 AM PEOPLESOFT CRM DEVELOPER us Abdifatah Chun MD LAB - PATHOLOGY/CYTOLOGY ORDERAB LES Final Result DERMATOPATHOLOGY LABORATORY [facility] - Department of Dermatology [address], [address]rd Floor [place], [place] [phone] [place] [address] documented in this encounter Visit Diagnoses Not on filedocumented in this encounter Care Teams Senior Clinical Data Manager Relationship Specialty Start Date End Date Britney Brito PA [address] [place] [phone] PCP - General 03/15/17 documented as of this encounter
--- OUTSIDE RECORDS SUMMARY | 2025-01-20 15:41 | XMS_ITS ---
Author Organization [facility] Address [address] [facility] [address] [place] [address] Care Team Providers Care Hospice Chaplain Name Role Phone Britney Pretty Primary Care Provider Alejandro DUQUE MD, PARVIZ Unavailable REASON FOR VISIT ERCP Encounters Encounter Location Date Provider Diagnosis [facility] [place] [address] 12/20/2023 PARVIZ DUQUE Plan Of Treatment No Information Progress Notes * Ivis LEDESMADOB:1965 (59 yo F)Acc No.[id number]:12/20/2023 Patient: Ivis CUELLO Provider: Amadeo Duque MD, FASGE :1965 A ge:58 Y S ex:Female Date:12/20/2023 Address:[address] [place], [place] [phone] Pcp:FERMÍN Jones * * Electronic signature of CARY DUQUE MD, MD on 01/20/2025 at 04:41 PM EDT Sign off status: Pending * Provider: Amadeo Duque MD, FASGE Date: 12/20/2023 Generated for Bryn olivo/Joseg/eTransmitting on: 01/20/2025 04:41 PM EDT
--- OUTSIDE RECORDS SUMMARY | 2025-01-20 15:41 | XMS_ITS | Encounter Summary ---
Author Organization [facility] Address [address] [place] [address] Care Team Providers Care Flight Instructor Name Role Phone Britney Brito Primary Care Pr ovider Encounter Details Date Type Department Care Team (Late st Contact Info) Description 02/14/2024 Lab Requisition [facility] Lab [address] [place] [phone] Abdifatah Chun MD [address] [place], [place] [phone] Social History Tobacco Use Types Packs/Day Years Used Date Smoking Tobacco: Every Day Smokeless Tobacco: Never Alcohol Use Standard Drinks/Week Comments No 0 (1 standard drink = 0.6 oz pur e alcohol) Comments Unknown Sex and Gender Information Value Date Recorded Sex Assigned at Not on file Legal Sex Female 5:19 PM HIDE WASHER Gender Identity Not on file Sexual Orientation Not on file documented as of this encounter Plan of Treatment Not on file documented as of this encounter Procedures Procedure Name Priority Date/Time Associated Diagnosis Comments DERMATOPATHOLOGY Routine 02/13/2024 12:0 0 AM CDT documented in this encounter Results * DERMATOPATHOLOGY (02/13/2024 12:00 AM CDT) Case Report Dermatopathology Report Case: [id number] Authorizing Provider: Abdifatah Chun MD Collected: 02/13/2024 12:00 AM Ordering Location: [facility] - Received: 02/14/2024 10:17 AM DermPath Lab Pathologist: Ana Shaikh MD Specimen: Skin, left knee 1:44 PM CDT DERMATOPATHOLOGY LABORATORY Final Diagnosis Specimen A. SKIN, left knee: SQUAMOUS CELL CARCINOMA, WELL DIFFERENTIATED; SUPERFICIAL PORTIONS OF (C44.729) (see microscopic description) 1:44 PM CDT DERMATOPATHOLOGY LABORATORY at 1344 CDT Clinical History Neoplasm R/O Verruca 1:44 PM [...] characteristic determined by the Dermatopathology Laboratory at [facility], directed by Dr. Trung Pimentel. These tests need not be, and therefore are not, approved by the [place] Food and Drug Administration. The tests are used for clinical purposes. Billing Codes Specimen Charges Stain Charges 64195 1 1:44 PM CDT DERMATOPATHOLOGY LABORATORY Embedded Images 1:44 PM CDT DERMATOPATHOLOGY LABORATORY Pathology/Cytolog y TISSUE SPECIMEN FROM SKIN / Unknown 02/13/2024 02/14/2024 10:17 AM CDT Abdifatah Chun MD LAB - PATHOLOGY/CYTOLOGY ORDERAB LES Final Result DERMATOPATHOLOGY LABORATORY [facility] Department of Dermatology [address], [address] [phone] documented in this encounter Visit Diagnoses Not on filedocumented in this encounter Care Teams Flight Instructor Relationship Specialty Start Date End Date Britney Brito PA [address] [place] [phone] PCP - General 03/15/17 documented as of this encounter
--- OUTSIDE RECORDS SUMMARY | 2025-01-20 15:41 | XMS_ITS | Continuity of Care Document ---
Author Organization [facility] Address [address] [place] [address] [address] [place] [address] Phone Care Team Providers Care Thread Puller Name Role Phone Rema Cortez Unavailable Unavailable Advance Directives Directive Yes / No Effective Date File Name No Information Encounters Encounter Description Practice Location Reason(s) For Visit Diagnoses Date Provider Providers Copied on Encounter Merged with [facility], [address], [place], [place], [address], [place] tel:[phone] [address] [facility] No Information May-0 6-200 2 Dana Hodgson. [address] [facility] [facility] , [address], [place], [address], [place]. tel:[phone] Family History Family Member Type Diagnosis Age At Onset No Information Payers Payer name Insurance type Covered democrat ID Authoriza tion(s) [place] [id number] Social History Type Description Quantity Date Captured [...]
--- OUTSIDE RECORDS SUMMARY | 2025-01-20 15:41 | XMS_ITS | Encounter Summary ---
Author Organization [facility] Address [address] [facility] [place] [address] Care Team Providers Care Business Insurance Agent Name Role Phone Britney Brito Primary Care Pr ovider Encounter Details Date Type Department Care Team (Late st Contact Info) Description 04/04/2023 Lab Requisition [facility] - DermPath Lab [address] [place] [phone] Abdifatah Chun MD [address] [place], [place] [phone] Social History Tobacco Use Types Packs/Day Years Used Date Smoking Tobacco: Every Day Smokeless Tobacco: Never Alcohol Use Standard Drinks/Week Comments No 0 (1 standard drink = 0.6 oz pur e alcohol) Comments Unknown Sex and Gender Information Value Date Recorded Sex Assigned at Not on file Legal Sex Female 5:19 PM PALS SPECIALIST Gender Identity Not on file Sexual Orientation Not on file documented as of this encounter Plan of Treatment Not on file documented as of this encounter Procedures Procedure Name Priority Date/Time Associated Diagnosis Comments DERMATOPATHOLOGY Routine 04/03/2023 12:0 0 AM CDT documented in this encounter Results * DERMATOPATHOLOGY (04/03/2023 12:00 AM CDT) Case Report Dermatopathology Report Case: [id number] Authorizing Provider: Abdifatah Chun MD Collected: 04/03/2023 12:00 AM Ordering Location: [facility] DermPath Lab Received: 04/05/2023 08:08 AM Pathologist: Carlyn Pimentel MD Specimens: A) - Skin, right elbow B) - Skin, left lat lower leg 5:36 PM CDT DERMATOPATHOLOGY LABORATORY Final Diagnosis Specimen A. SKIN, right elbow: VERRUCA VULGARIS (B07.8) PRESENT AT MARGIN Specimen B. SKIN, left lat lower leg: HYPERPLASTIC (HYPERTROPHIC) ACTINIC KERATOSIS; EXTENDING TO THE BASE OF THE SPECIMEN (L57.0) OVERLYING CUTANEOUS HORN (L85.8) (see microscopic description and comment) 3 5:36 PM CDT DERMATOPATHOLOGY LABORATORY at 1736 CDT Clinical History A-B: Nodule R/O Verr. Check Margins. 3 5:36 PM CDT DERMATOPATHOLOGY LABORATORY Gross Description Specimen [...] shave biopsy measuring 10x9x1 mm. Jar 0. 3 5:36 PM T DERMATOPATHOLOGY LABORATORY Microscopic Description Specimen A. SKIN, [...] cell carcinoma cannot be ruled out. 3 5:36 PM T DERMATOPATHOLOGY LABORATORY Disclaimer An external and internal positive and negative controls are appropriate for the histochemical, immunohistochemical and immunofluorescence stain(s) in this case (if any), except where stated explicitly. The performance characteristics of the stain(s) cited in this report were developed and its performance characteristic determined by the Dermatopathology Laboratory at [facility], directed by Dr. Trung Pimentel. These tests need not be, and therefore are not, approved by the [place] Food and Drug Administration. The tests are used for clinical purposes. Billing Codes Specimen Charges Stain Charges 06729 12872 1 1 3 5:36 PM CDT DERMATOPATHOLOGY LABORATORY Embedded Images 3 5:36 PM CDT DERMATOPATHOLOGY LABORATORY Pathology/Cytology TISSUE SPECIMEN FROM SKIN / Unknown 04/03/2023 04/05/2023 8:08 AM CDT Miscellaneous samples (specimen) TISSUE SPECIMEN FROM SKIN / Unknown 04/03/2023 04/05/2023 8:08 AM CDT us Abdifatah Chun MD LAB - PATHOLOGY/CYTOLOGY ORDERAB LES Final Result DERMATOPATHOLOGY LABORATORY [facility] - Department of Dermatology [facility] [address] [place] [address], [address] [phone] documented in this encounter Visit Diagnoses Not on filedocumented in this encounter Care Teams Business Insurance Agent Relationship Specialty Start Date End Date Britney Brito PA [address] [place] [address] PCP - General 03/15/17 documented as of this encounter
--- OUTSIDE RECORDS SUMMARY | 2025-01-20 15:41 | XMS_ITS | Patient Health Record ---
Author Organization [facility] Address [address] [place] [address] Care Team Providers Care Culinary Instructor Name Role Phone Britney Pretty Primary Care Provider Alejandro DUQUE MD, PARVIZ Unavailable [phone] Reason For Referral No Information Problems Problem Type SNOMED Code ICD Code Onset Dates Problem Status W/U Status Risk Notes Problem Obstruction of bile duct (36955502) Obstruction of bile duct (K83.1) Active confirmed Plan Of Treatment Pending Test Test Name Order Date Endoscopic Retrograde Cholangiopancreato graphy (ERCP) 12/19/2023 Endoscopic Retrograde Cholangiopancreato graphy (ERCP) 01/10/2024 Insurance Providers Payer Name Payer Address Payer Phone Subscriber Number Group Number Insured Name Patient Relationship to Insured Coverage Start Date Coverage End Date [place] [address] [place] [id number] DeclanJohnIvis Self - patient is the insured [place] - Secondary to Medicare/[facility] [address] [address] [place], [place] [id number] Ivis Manriquez Self - patient is the insured
--- OUTSIDE RECORDS SUMMARY | 2025-01-20 15:41 | XMS_ITS ---
Author Organization [facility] Address [address] [place] [address] Care Team Providers Care Engineer Intern Name Role Phone Britney Pretty Primary Care Provider Alejandro DUQUE MD, PARVIZ Unavailable REASON FOR VISIT ERCP w/stent pull/No Auth Req* Encounters Encounter Location Date Provider Diagnosis [facility] - Op [address] Scheduling [place], [place] [phone] 01/15/2024 PARVIZFabi DUQUE Plan Of Treatment No Information Progress Notes * Ivis LEDESMADOB:1965 (59 yo F)Acc No.[id number]:01/15/2024 Patient: Ivis CUELLO Provider: Amadeo Duque MD, FASGE :1965 A ge:58 Y S ex:Female Date:01/15/2024 Address:[address] [place], [place] [phone] Pcp:FERMÍN Jones * * Electronic signature of CARY DUQUE MD, MD on 01/20/2025 at 04:41 PM EDT Sign off status: Pending * Provider: Amadeo Duque MD, FASGE Date: 01/15/2024 Generated for Sanjivi ng/Fabeleng/eTransmitting on: 01/20/2025 04:41 PM EDT
--- OUTSIDE RECORDS SUMMARY | 2025-01-20 15:41 | XMS_ITS | Encounter Summary ---
Author Organization [facility] Address [address] [place] [address] Care Team Providers Care Burring Machine Operator Name Role Phone Britney Brito Primary Care Pr ovider Encounter Details Date Type Department Care Team (Late st Contact Info) Description 08/24/2022 Lab Requisition [facility] DermPath Lab [address] [place] [phone] Abdifatah Chun MD [facility] [place], [place] [phone] Social History Tobacco Use Types Packs/Day Years Used Date Smoking Tobacco: Every Day Smokeless Tobacco: Never Alcohol Use Standard Drinks/Week Comments No 0 (1 standard drink = 0.6 oz pur e alcohol) Comments Unknown Sex and Gender Information Value Date Recorded Sex Assigned at Not on file Legal Sex Female 5:19 PM CARBIDE DIE MAKER Gender Identity Not on file Sexual Orientation Not on file documented as of this encounter Plan of Treatment Not on file documented as of this encounter Procedures Procedure Name Priority Date/Time Associated Diagnosis Comments DERMATOPATHOLOGY Routine 08/23/2022 12:0 0 AM CDT documented in this encounter Results * DERMATOPATHOLOGY (08/23/2022 12:00 AM CDT) Case Report Dermatopathology Report Case: [id number] Authorizing Provider: Abdifatah Chun MD Collected: 08/23/2022 12:00 AM Ordering Location: [facility] DermPath Lab Received: 08/24/2022 03:08 PM Pathologist: Ana Shaikh MD Specimen: Skin, right forearm 3:59 PM CDT DERMATOPATHOLOGY LABORATORY Final Diagnosis Specimen A. SKIN, right forearm: PRURIGO NODULARIS (L28.1) PRESENT AT MARGIN EPIDERMAL NECROSIS SUGGESTIVE OF EXCORIATION (L98.499) 3 3:59 PM CDT DERMATOPATHOLOGY LABORATORY at 1559 CDT Clinical History R/O Verr Check margin 3 3:59 PM CDT DERMATOPATHOLOGY LABORATORY Gross Description Specimen A: Received is one formalin filled container labeled with the patient's name and designated right forearm. The specimen consists of a shave biopsy measuring 8x5x1 mm. Jar 0. 3:59 PM CDT DERMATOPATHOLOGY LABORATORY Microscopic Description [...] scale-crust. There is fibrin at the base. 3:59 PM CDT DERMATOPATHOLOGY LABORATORY Disclaimer An external and internal positive and negative controls are appropriate for the histochemical, immunohistochemical and immunofluorescence stain(s) in this case (if any), except where stated explicitly. The performance characteristics of the stain(s) cited in this report were developed and its performance characteristic determined by the Dermatopathology Laboratory at [facility], directed by Dr. Trung Pimentel. These tests need not be, and therefore are not, approved by the [place] Food and Drug Administration. The tests are used for clinical purposes. Billing Codes Specimen Charges Stain Charges 03983 1 3 3:59 PM CDT DERMATOPATHOLOGY LABORATORY Embedded Images 3 3:59 PM CDT DERMATOPATHOLOGY LABORATORY Pathology/Cytolog y TISSUE SPECIMEN FROM SKIN / Unknown 08/23/2022 08/24/2022 3:08 PM CDT us Abdifatah Chun MD LAB - PATHOLOGY/CYTOLOGY ORDERAB LES Final Result DERMATOPATHOLOGY LABORATORY [facility] - Department of Dermatology [facility] [address] [facility], [address]rd Floor [address] [phone] documented in this encounter Visit Diagnoses Not on filedocumented in this encounter Care Teams Burring Machine Operator Relationship Specialty Start Date End Date Britney Brito PA [address] [place] [phone] PCP - General 03/15/17 documented as of this encounter
--- OUTSIDE RECORDS SUMMARY | 2025-01-20 15:41 | XMS_ITS ---
Author Organization [facility] [email or web address] Address [address] [facility] [address] [place] [address] Care Team Providers Care Electric Mule Operator Name Role Phone Angle Iyer Unavailable [phone] REASON FOR VISIT FINANCIAL DIRECTOR diabetic/HBP/weight gain Encounters Encounter Location Date Provider Diagnosis [facility]MO Dr. Iyer [address] [place] [phone] 12/23/2024 Angle Iyer Plan Of Treatment Next Appt Details Provider Name:Angle Iyer, 03:20:00 PM, [address] [place] [address], [phone], Progress Notes * DECLANIvis ZAMORADOB:1965 (59 yo F)Acc No.[id number]:12/23/2024 Progress Notes Patient: Ivis Salgado Provider: Carlyn Iyer MD :1965 A ge:59 Y S ex:Female Date:12/23/2024 Phone: Address:[address] [place], [place] [phone] Subjective: * Chief Complaints: * N P diabetic/HBP/weight gain * Electronic signature of Patric Iyer MD on 01/20/2025 at 03:40 PM CDT Sign off status: Pending * Provider: Carlyn Iyer MD Date: 12/23/2024 Generated for Sanjivi ng/Fabeleng/eTransmitting on: 01/20/2025 03:40 PM CDT
--- OUTSIDE RECORDS SUMMARY | 2025-01-20 15:41 | XMS_ITS | Patient Health Record ---
Author Organization [facility] [place] [facility]. Address [address] [place] [address] Care Team Providers Care Computer Repair Instructor Name Role Phone Angle Iyer Unavailable [phone] Results Component Value Reference Range Flag Notes .COMPREHENSIVE METABOLIC MASTERSON EL ([id number]) CMP Reviewed date:01/18/2025 01:34:14 PM Interpretation: Performing Lab:[facility]-[id number] David [id number] Lilly Burger MD Notes/Report: GLUCOSE 124 65-99 mg/dL H Fasting reference interval For someone without known diabetes, a glucose value between 100 and 125 mg/dL is consistent with prediabetes and should be confirmed with a follow-up test. UREA NITROGEN (BUN) 12 7-25 mg/dL N CREATININE 0.61 0.50-1.05 mg/dL N EGFR 102 > OR = 60 mL/min/1.73m2 N BUN/CREATININE RATIO SEE NOTE: 6-22 (calc) Not Reported: BUN and Creatinine are within reference range. SODIUM 134 135-146 mmol/L L POTASSIUM 4.6 3.5-5.3 mmol/L N CHLORIDE 99 98-110 mmol/L N CARBON DIOXIDE 27 20-32 mmol/L N CALCIUM 9.2 8.6-10.4 mg/dL N PROTEIN, TOTAL 6.5 6.1-8.1 g/dL N ALBUMIN 4.3 3.6-5.1 g/dL N GLOBULIN 2.2 1.9-3.7 g/dL (calc) N ALBUMIN/GLOBULIN RATIO 2.0 1.0-2.5 (calc) N BILIRUBIN, TOTAL 0.4 0.2-1.2 mg/dL N ALKALINE PHOSPHATASE 81 37-153 U/L N AST 14 10-35 U/L N ALT 14 6-29 U/L N MAGNESIUM (622) Reviewed date:01/18/2025 01:34:14 PM Interpretation: Performing Lab:[facility]-[id number] Linnette Lopez, [id number] Lilly Burgre MD Notes/Report: MAGNESIUM 2.0 1.5-2.5 mg/dL N .LIPID PANEL, STANDARD (7600 ) Reviewed date:01/18/2025 01:34:14 PM Interpretation: Performing Lab:[facility]-[id number] Linnette Salazar, [id number] Lilly Burger MD Notes/Report: CHOLESTEROL, TOTAL 159 <200 mg/dL N HDL CHOLESTEROL 97 > OR = 50 mg/dL N TRIGLYCERIDES 63 <150 mg/dL N LDL-CHOLESTEROL 48 N Reference range: <100 Desirable range <100 mg/dL for primary prevention; <70 mg/dL for patients with CHD or diabetic patients with > or = 2 CHD risk factors. LDL-C is now calculated using the Nixon calculation, which is a validated novel method providing better accuracy than the Friedewald equation in the estimation of LDL-C. Yvan SS et al. XIMENA. 2013;310(19): 0365-6707 (http://education.[employer]/faq/FAQ16 4) CHOL/HDLC RATIO 1.6 <5.0 (calc) N NON HDL CHOLESTEROL 62 <130 mg/dL (calc) N For patients with diabetes plus 1 major ASCVD risk factor, treating to a non-HDL-C goal of <100 mg/dL (LDL-C of <70 mg/dL) is considered a therapeutic option. .ALBUMIN, RANDOM URINE W/CRE ATININE (6517) Reviewed date:01/18/2025 01:34:14 PM Interpretation: Performing Lab:[facility]-[id number] Linnette Salazar, [id number] Lilly Burger MD Notes/Report: CREATININE, RANDOM URINE 31 20-275 mg/dL N ALBUMIN, URINE 1.7 See Note: mg/dL N Reference Range: Reference Range Not established ALBUMIN/CREATININE RATIO, RANDOM URINE 55 <30 mg/g creat H The ADA defines abnormalities in albumin excretion as follows: Albuminuria Category Result (mg/g creatinine) Normal to Mildly increased <30 Moderately increased 30-299 Severely increased > OR = 300 The ADA recommends that at least two of three specimens collected within a 3-6 month period be abnormal before considering a patient to be within a diagnostic category. .CBC (INCLUDES DIFF/PLT) (63 99) Reviewed date:01/18/2025 01:34:14 PM Interpretation: Performing Lab:[facility]-[id number] Linnette Salazar, [id number] Lilly Burger MD Notes/Report: WHITE BLOOD CELL COUNT 8.4 3.8-10.8 Thousand/uL N RED BLOOD CELL COUNT 4.40 3.80-5.10 Million/uL N HEMOGLOBIN 13.7 11.7-15.5 g/dL N HEMATOCRIT 40.3 35.0-45.0 % N MCV 91.6 80.0-100.0 fL N MCH 31.1 27.0-33.0 pg N MCHC 34.0 32.0-36.0 g/dL N For adults, a slight decrease in the calculated MCHC value (in the range of 30 to 32 g/dL) is most likely not clinically significant; however, it should be interpreted with caution in correlation with other red cell parameters and the patient's clinical condition. RDW 13.7 11.0-15.0 % N PLATELET COUNT 366 140-400 Thousand/uL N MPV 8.4 7.5-12.5 fL N ABSOLUTE NEUTROPHILS 4956 1407-9902 cells/uL N ABSOLUTE LYMPHOCYTES 2201 850-3900 cells/uL N ABSOLUTE MONOCYTES 1126 200-950 cells/uL H ABSOLUTE EOSINOPHILS 101 15-500 cells/uL N ABSOLUTE BASOPHILS 17 0-200 cells/uL N NEUTROPHILS 59 N LYMPHOCYTES 26.2 N MONOCYTES 13.4 N EOSINOPHILS 1.2 N BASOPHILS 0.2 N VITAMIN B12/FOLATE, SERUM PA REGINA (2219) Reviewed date:01/18/2025 01:34:14 PM Interpretation: Performing Lab:[facility]-[id number] Linnette Salazar, [id number] Lilly Burger MD Notes/Report: VITAMIN B12 029 454-6113 pg/mL N FOLATE, SERUM 19.5 N Reference Range Low: <3.4 Borderline: 3.4-5.4 Normal: >5.4 T4, FREE (866) Reviewed date:01/18/2025 01:34:14 PM Interpretation: Performing Lab:[facility]-[id number] Linnette Salazar, [id number] Lilly Burger MD Notes/Report: T4, FREE 1.2 0.8-1.8 ng/dL N TSH (899) Reviewed date:01/18/2025 01:34:14 PM Interpretation: Performing Lab:[facility]-[id number] Salazar, [id number] Lilly Burger MD Notes/Report: TSH 0.38 0.40-4.50 mIU/L L T3, FREE (59287) Reviewed date:01/18/2025 01:34:14 PM Interpretation: Performing Lab:[facility]-[id number] Linnette Salazar, [id number] Lilly Burger MD Notes/Report: T3, FREE 2.7 2.3-4.2 pg/mL N .VITAMIN D,25-OH,TOTAL,IA (1 7322) Reviewed date:01/18/2025 01:34:15 PM Interpretation: Performing Lab:[facility]-[id number] Linnette Salazar, [id number] Lilly Burger MD Notes/Report: VITAMIN D,25-OH,TOTAL,IA 48 30-100 ng/mL N Vitamin D Status 25-OH Vitamin D: Deficiency: <20 ng/mL Insufficiency: 20 - 29 ng/mL Optimal: > or = 30 ng/mL For 25-OH Vitamin D testing on patients on D2-supplementation and patients for whom quantitation of D2 and D3 fractions is required, the QuestAssureD(TM) 25-OH VIT D, (D2,D3), LC/MS/MS is recommended: order code 95996 (patients >2yrs). See Note 1 Note 1 For additional information, please refer to http://education.[employer]/faq/FVI552 (This link is being provided for informational/ educational purposes only.) Reason For Referral No Information Medications Medication SIG (Take, Route, Frequency, Duration) Notes Start Date End Date Status Pregabalin 75 MG Capsule 1 capsule Orally Once a day; Duration: 90 days 01/13/2025 Active Doxepin HCl 100 MG Capsule 1 capsule at bedtime Orally Once a day Active Ozempic (0.25 or 0.5 MG/DOSE) 2 MG/3ML Solution Pen-injector 0.5 mg Subcutaneous once a week; Duration: 90 days 01/10/2025 Active HYDROcodone-Acetaminoph en 7.5-325 MG Tablet 1 tablet as needed for pain Orally twice a day Active Trintellix 10 MG Tablet 1 tablet Orally Once a day Active metFORMIN HCl ER 750 MG Tablet Extended Release 24 Hour 1 tablet Orally twice daily with meals; Duration: 90 days Active Dupixent 300 MG/2ML Solution Prefilled Syringe 2 mL Subcutaneous Active Montelukast Sodium 10 MG Tablet 1 tablet Orally Once a day Active Furosemide 20 MG Tablet 1 tablet Orally Once a day Active traZODone HCl 150 MG Tablet 1 tablet at bedtime as needed Orally Once a day Active Januvia 100 MG Tablet 1 tablet Orally On ce a day Active Gemtesa 75 MG Tablet 1 tablet Orally Onc e a day Active Geodon 80 MG Capsule 1 capsule with food Orally Twice a day Active Atorvastatin Calcium 10 MG Tablet 1 tablet Orally Once a day; Duration: 90 days Active Valsartan 80 MG Tablet 1 tablet Orally O nce a day; Duration: 90 days Active Synthroid 150 MCG Tablet 1 tablet in the morning on an empty stomach Orally Once a day; Duration: 90 days Active Liothyronine Sodium 5 MCG Tablet 1 tablet on an empty stomach Orally Once a day; Duration: 90 days twice daily Active Pregabalin 75 MG Capsule 1 capsule Orally 3 times a day; Duration: 90 days 01/15/2025 Active Social History Social History Drug/Alcohol: Social Info Question Answer Notes Drugs Have you use non pre scription recreational drug(s) in past 12 months? Yes Alcohol Screen How often did you tobin ve a drink containing alcohol in the past year? none/never - 0 How many drinks did you have on a typical day when you drink? none, I don't drink - 0 How often did you have six or more drinks? never - 0 AUDIT-C score Negative Tobacco Use: Social Info Question Answer Notes Smoking History Are you a tobacco smoker / vaper? curr ent smoker How many cigarettes/cigar a day do you smoke? - 20 Are you an other tobacco user? No Problems Problem Type SNOMED Code ICD Code Onset Dates Problem Status W/U Status Risk Notes Problem Vitamin D deficiency (80840899) Vitamin D deficiency, unspecified (E55.9) Active confirmed Problem Dyslipidemia (204924313) Dyslipidemia (E78.5) Active confirmed Problem Hyperglycemia due to type 2 diabetes mellitus (117682491206751) Type 2 diabetes mellitus with hyperglycemia, without long-term current use of insulin (E11.65) Active confirmed Problem Neuropathy (966743718) Neuropathy (G62.9) Active confirmed Problem Obesity (505715768) Obesity (BMI 30-39.9) (E66.9) Active confirmed Vital Signs Heart Rate 84 /min 01/10/2025 Height-cm 157.48 cm 01/10/2025 Blood pressure diastolic 85 mm Hg 01/10/2025 Weight-kg 79.38 kg 01/10/2025 Height 62 in 01/10/2025 Blood pressure systolic 143 mm Hg 01/10/2025 Weight 175 lbs 01/10/2025 BMI 32 kg/m2 01/10/2025 Encounters Encounter Location Date Provider Diagnosis AMMO Dr. Iyer [address] [place] [address] 01/10/2025 Angle Iyer Dietary counseling a nd surveillance Z71.3 ; Type 2 diabetes mellitus with hyperglycemia, without long-term current use of insulin E11.65 ; Obesity (BMI 30-39.9) E66.9 ; Other fatigue R53.83 ; Dyslipidemia E78.5 and Vitamin D deficiency, unspecified E55.[address] Iyer [address] [place], [place] [phone] 01/13/2025 Angle Iyer AMMO [facility] [address] [place], [place] [phone] 01/13/2025 Angle Iyer Neuropathy G62.[address] Iyer [address] [place] [id number] 01/13/[address] Iyer [address] [place] [address] 01/15/2025 Angle Iyer Assessments Encounter Date Diagnosis (ICD Code) Assessment Notes Treatment Notes Treatment Clinical Notes Section Notes 01/10/2025 Dietary counseling and surveillance (ICD-10 - Z71.3) Spent 15 minutes preventative counseling patient on dietary recommendations and changes in setting of hyperglycemia- need to restrict refined sugars and processed foods and incorporate up to 150 minutes of moderate level activity weekly. 01/10/2025 Type 2 diabetes mellitus with hyperglycemia, without long-term current use of insulin (ICD-10 - E11.65) 01/13/2025 Neuropathy (ICD-10 - G62.9) 01/10/2025 Obesity (BMI 30-39.9) (ICD-10 - E66.9) 01/10/2025 Other fatigue (ICD-10 - R53.83) 01/10/2025 Dyslipidemia (ICD-10 - E78.5) 01/10/2025 Vitamin D deficiency, unspecified (ICD-10 - E55.9) 01/10/2025 Other Ivis is a patient with multiple chronic conditions including diabetes, chronic pain, and a history of skin issues, presenting with concerns about weight gain and gastrointestinal symptoms. Type 2 Diabetes MellitusAssessment: Patient reports well-controlled blood sugars with an A1c of 5.4. Currently on Januvia and metformin 750 mg TID. Despite good glycemic control, patient has experienced significant weight gain of approximately 30 pounds over the past 3 years, now weighing 175 pounds. Patient also has a history of fatty liver disease, which may be exacerbated by the weight gain.Plan:- Discontinue Januvia- Start Ozempic 0.25 mg subcutaneously once weekly for 4 weeks with food, then increase - Patient informed of potential side effects including nausea - Instructed on proper injection technique and storage requirements - Zofran available if needed for nausea- Continue metformin 750 mg TID- Advised on importance of healthy eating habits- Follow up in 4-6 weeks- Order comprehensive metabolic panel and lipid panel at [facility] in [place] Chronic PainAssessment: Patient reports chronic pain, currently managed with hydrocodone. The pain is likely exacerbated by the patient's increased weight. Patient is on pregabalin 75 mg TID for neuropathy, which is reported to be out of whack.Plan:- Continue hydrocodone 7.5 mg BID- Continue pregabalin 75 mg TID- Advised on potential constipation due to hydrocodone use- Recommended fiber powder and probiotic for bowel regulation- Consider Linzess for constipation management if needed Gastrointestinal SymptomsAssessment: Patient reports persistent abdominal pain and frequent bowel movements (4-5 per day) following cholecystectomy and umbilical hernia repair. Symptoms may be related to post-surgical changes, medication side effects (e.g., metformin), or dietary factors.Plan:- Recommended fiber powder and probiotic supplementation- Advised on dietary modifications- Monitor symptoms and adjust treatment as needed ObesityAssessment: Patient has gained approximately 30 pounds over the past 3 years, currently weighing 175 pounds. This weight gain is contributing to other health issues, including fatty liver disease and potentially exacerbating chronic pain.Plan:- Initiate Ozempic for weight management and glycemic control (as detailed in diabetes management plan)- Encourage dietary modifications and regular exercise as tolerated- Monitor weight at follow-up visits Skin IssuesAssessment: Patient has a history of recurrent skin sores, described as primordial nodulars. Currently managed with Dupixent and under the care of a [facility].Plan:- Continue Dupixent 300 mg every other week- Continue follow-up with [facility] Monoclonal Gammopathy of Undetermined Significance (MGUS)Assessment: Patient has a history of MGUS and is currently under the care of Dr. Feliz for monitoring.Plan:- Continue monitoring CBC and calcium levels- Refer to Dr. Feliz if any abnormalities are detected in blood work Spent 45 minutes preparing to see the patient (ex review of tests/chart), obtaining and / or reviewing separately obtained history, performing a medically appropriate examination and/or evaluation, counseling and educating the patient/family/careg iver, ordering medications, tests, or procedures, referring and communicating with other health home health care social worker, documenting clinical information in the electronic or other health record, independently interpreting results and communicating results to the patient/family/careg iver and care coordinating patient plan. Patient alert and oriented x 4 and aware of discussion noted above and in agreeance to plan in management of type 2 dM, weight management, fatty liver ds and need for semaglutide, fatigue, dyslipidemia. Plan Of Treatment Next Appt Details Provider Name:Angle Iyer, 03:20:00 PM, [address] [place] [address], [place], [address], Insurance Providers Payer Name Payer Address Payer Phone Subscriber Number Group Number Insured Name Patient Relationship to Insured Coverage Start Date Coverage End Date [facility] ([facility]) [address] [address] [place] [address] [id number] Ivis Manriquez Self - patient is the insured Medical (General) History Medical History History ICD Code hypertension diabetes high blood pressure high cholestrol Surgical History Surgery Date(Month/Year) broke right arm in 4 different places 20 23. gallbladder umbilical cord hernia
--- OUTSIDE RECORDS SUMMARY | 2025-01-20 15:41 | XMS_ITS | Encounter Summary ---
Author Organization [facility] Address [address] [place] [address] Care Team Providers Care Playground Director Name Role Phone Britney Brito Primary Care Pr ovider Encounter Details Date Type Department Care Team (Late st Contact Info) Description 07/28/2022 Lab Requisition [facility] [address] [place] [id number] Abdifatah Chun MD [address] [place] [address] [id number] Social History Tobacco Use Types Packs/Day Years Used Date Smoking Tobacco: Every Day Smokeless Tobacco: Never Alcohol Use Standard Drinks/Week Comments No 0 (1 standard drink = 0.6 oz pur e alcohol) Comments Unknown Sex and Gender Information Value Date Recorded Sex Assigned at Not on file Legal Sex Female 5:19 PM TEACHING PASTOR Gender Identity Not on file Sexual Orientation Not on file documented as of this encounter Plan of Treatment Not on file documented as of this encounter Procedures Procedure Name Priority Date/Time Associated Diagnosis Comments DERMATOPATHOLOGY Routine 07/26/2022 12:0 0 AM TEACHING PASTOR documented in this encounter Results * DERMATOPATHOLOGY (07/26/2022 12:00 AM TEACHING PASTOR) Case Report Dermatopathology Report Case: [id number] Authorizing Provider: Abdifatah Chun MD Collected: 07/26/2022 12:00 AM Ordering Location: [facility] Received: 07/28/2022 06:58 AM Pathologist: Ana Shaikh MD Specimens: A) - Skin, left thigh B) - Skin, left ant tibia 3 9:55 AM [facility]OR[facility] Final Diagnosis Specimen A. SKIN, left thigh: BENIGN VERRUCOUS KERATOSIS, CONSISTENT WITH RESIDUAL PORTIONS OF (L82.1) DERMAL SCAR (L90.5) (see microscopic description and comment) Specimen B. SKIN, left ant tibia: HYPERPLASTIC (HYPERTROPHIC) ACTINIC KERATOSIS (L57.0) PRESENT AT MARGIN DERMAL SCAR (L90.5) (see microscopic description and comment) 3 9:55 AM [facility] DERMATOPATHOLOGY [facility]ORATORY at [address] [facility] Clinical History A-B: Bx proven SCC Check margins 3 9:55 AM [facility]ERMATOPATHOLOGY [facility]OR[facility] Gross Description Specimen A: Received [...] 11x9x2 mm. Jar 0. 3 9:55 AM [facility]ERMATOPATHOLOGY [facility]OR[facility] Microscopic Description Specimen A. SKIN, [...] of the specimen. COMMENT: The prior biopsy ([id number]) is reviewed. These histologic features are consistent with residual portions of benign verrucous keratosis. The differential diagnosis includes healing skin changes and prurigo nodularis. If this specimen is sampled from a larger lesion, these findings may not be unit support representative of the entire lesion. Clinicopathologic correlation [...] of the specimen. COMMENT: The prior biopsy ([id number]) is reviewed. A squamous cell carcinoma cannot be ruled out. 3 9:55 AM [facility]ERMATOPATHOLOGY [facility]OR[facility] Disclaimer An external and internal positive and negative controls are appropriate for the histochemical, immunohistochemical and immunofluorescence stain(s) in this case (if any), except where stated explicitly. The performance characteristics of the stain(s) cited in this report were developed and its performance characteristic determined by the Dermatopathology Laboratory at [facility], directed by Dr. Trung Pimentel. These tests need not be, and therefore are not, approved by the [place] Food and Drug Administration. The tests are used for clinical purposes. Billing Codes Specimen Charges Stain Charges 75842 [id number] 1 1 3 9:55 AM TEACHING PASTOR DERMATOPATHOLOGY LABORATORY Embedded Images 3 9:55 AM TEACHING PASTOR DERMATOPATHOLOGY LABORATORY Pathology/Cytology TISSUE SPECIMEN FROM SKIN / Unknown 07/26/2022 07/28/2022 6:58 AM TEACHING PASTOR Miscellaneous samples (specimen) TISSUE SPECIMEN FROM SKIN / Unknown 07/26/2022 07/28/2022 6:58 AM TEACHING PASTOR Abdifatah Chun MD LAB - PATHOLOGY/CYTOLOGY ORDERAB LES Final Result DERMATOPATHOLOGY LABORATORY [facility] - Department of Dermatology [facility] [address] [place] [address], [address] [phone] documented in this encounter Visit Diagnoses Not on filedocumented in this encounter Care Teams Playground Director Relationship Specialty Start Date End Date Britney Brito PA [address] [place] [address] PCP - General 03/15/17 documented as of this encounter
--- OUTSIDE RECORDS SUMMARY | 2025-01-20 15:41 | XMS_ITS | Encounter Summary ---
Author Organization [facility] Address [address] [place] [address] Care Team Providers Care Front Office Coordinator Name Role Phone Britney Brito Primary Care Pr ovider Encounter Details Date Type Department Care Team (Late st Contact Info) Description 07/19/2022 Lab Requisition [facility] [address] [place] [phone] Abdifatah Chun MD [address] [place] [phone] Social History Tobacco Use Types Packs/Day Years Used Date Smoking Tobacco: Every Day Smokeless Tobacco: Never Alcohol Use Standard Drinks/Week Comments No 0 (1 standard drink = 0.6 oz pur e alcohol) Comments Unknown Sex and Gender Information Value Date Recorded Sex Assigned at Not on file Legal Sex Female 5:19 PM PAPER CUTTER OPERATOR Gender Identity Not on file Sexual Orientation Not on file documented as of this encounter Plan of Treatment Not on file documented as of this encounter Procedures Procedure Name Priority Date/Time Associated Diagnosis Comments DERMATOPATHOLOGY Routine 07/19/2022 12:0 0 AM PAPER CUTTER OPERATOR documented in this encounter Results * DERMATOPATHOLOGY (07/19/2022 12:00 AM PAPER CUTTER OPERATOR) Case Report Dermatopathology Report Case: [id number] Authorizing Provider: Abdifatah Chun MD Collected: 07/19/2022 12:00 AM Ordering Location: [facility] Received: 07/19/2022 03:15 PM Pathologist: Carlyn Pimentel MD Specimens: A) - Skin, right elbow B) - Skin, right forearm inferior C) - Skin, right forearm anterior 3 4:55 PM [facility] DERMAT[facility]ATH[facility]Y [facility]ORATORY Final Diagnosis Specimen A. 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 SKIN, right forearm inferior: PRURIGO NODULARIS (L28.1) Specimen C. SKIN, right forearm anterior: PRURIGO NODULARIS (L28.1) 3 4:55 PM [facility] DERMATOPATHOLOGY LABORATORY at 1655 PAPER CUTTER OPERATOR Clinical History A-B: R/O Neoplasm. Check Margins. 3 4:55 PM [facility] DERMATOPATHOLOGY LABORATORY Gross Description Specimen A: [...] 8x6x2 mm. Jar 0. 3 4:55 PM [facility] DERMATOPATHOLOGY LABORATORY Microscopic Description Specimen A. [...] superficial perivascular lymphohistiocytic infiltrate. 3 4:55 PM [facility] DERMATOPATHOLOGY LABORATORY Disclaimer An external and internal positive and negative controls are appropriate for the histochemical, immunohistochemical and immunofluorescence stain(s) in this case (if any), except where stated explicitly. The performance characteristics of the stain(s) cited in this report were developed and its performance characteristic determined by the Dermatopathology Laboratory at [facility], directed by Dr. Trung Pimentel. These tests need not be, and therefore are not, approved by the [place] Food and Drug Administration. The tests are used for clinical purposes. Billing Codes Specimen Charges Stain Charges 44736 60563 92095 1 1 1 3 4:55 PM PAPER CUTTER OPERATOR DERMATOPATHOLOGY LABORATORY Embedded Images 3 4:55 PM PAPER CUTTER OPERATOR DERMATOPATHOLOGY LABORATORY Pathology/Cytology TISSUE SPECIMEN FROM SKIN / Unknown 07/19/2022 07/19/2022 3:15 PM PAPER CUTTER OPERATOR Miscellaneous samples (specimen) TISSUE SPECIMEN FROM SKIN / Unknown 07/19/2022 07/19/2022 3:15 PM PAPER CUTTER OPERATOR Miscellaneous samples (specimen) TISSUE SPECIMEN FROM SKIN / Unknown 07/19/2022 07/19/2022 3:15 PM PAPER CUTTER OPERATOR Abdifatah Chun MD LAB - PATHOLOGY/CYTOLOGY ORDERAB LES Final Result DERMATOPATHOLOGY LABORATORY [facility] - Department of Dermatology [facility] Specialized Medicine [address] [place] [address], [address] [phone] documented in this encounter Visit Diagnoses Not on filedocumented in this encounter Care Teams Front Office Coordinator Relationship Specialty Start Date End Date Britney Brito PA [address] [place] [address] PCP - General 03/15/17 documented as of this encounter
--- OUTSIDE RECORDS SUMMARY | 2025-01-20 15:41 | XMS_ITS | Encounter Summary ---
Author Organization [facility] Address [address] [facility] [place] [address] Care Team Providers Care Supervisor Public Health Nursing Name Role Phone Britney Brito Primary Care Pr ovider Encounter Details Date Type Department Care Team (Late st Contact Info) Description 07/07/[address] [facility] [address] [place] [phone] Abdifatah Chun MD [address] [place] [phone] Social History Tobacco Use Types Packs/Day Years Used Date Smoking Tobacco: Every Day Smokeless Tobacco: Never Alcohol Use Standard Drinks/Week Comments No 0 (1 standard drink = 0.6 oz pur e alcohol) Comments Unknown Sex and Gender Information Value Date Recorded Sex Assigned at Not on file Legal Sex Female 5:19 PM HI TEACHER Gender Identity Not on file Sexual Orientation Not on file documented as of this encounter Plan of Treatment Not on file documented as of this encounter Procedures Procedure Name Priority Date/Time Associated Diagnosis Comments DERMATOPATHOLOGY Routine 07/05/2022 12:0 0 AM HI TEACHER documented in this encounter Results * DERMATOPATHOLOGY (07/05/2022 12:00 AM HI TEACHER) Case Report Dermatopathology Report Case: [id number] Authorizing Provider: Abdifatah Chun MD Collected: 07/05/2022 12:00 AM Ordering Location: [facility] Received: 07/07/2022 06:54 AM Pathologist: Ana Shaikh MD Specimens: A) - Skin, left thigh B) - Skin, left ant. tibia 3 4:53 PM [facility] DERMATOPATHOLOGY [facility]ORATORY Final Diagnosis Specimen A. SKIN, left thigh: SQUAMOUS PROLIFERATION (D48.5) PRESENT AT MARGIN (see microscopic description and comment) Specimen B. SKIN, left ant. tibia: SQUAMOUS CELL CARCINOMA, WELL DIFFERENTIATED (C44.729) PRESENT AT MARGIN 3 4:53 PM [facility] DERMATOPATHOLOGY LABORATORY at 1653 HI TEACHER Clinical History A-B: R/O Neoplasm vs. PN. Please Check Margins. 3 4:53 PM [facility] DERMATOPATHOLOGY [facility]ORATORY Gross Description Specimen A: Received is one formalin filled container labeled with the patient's name and designated left thigh. The specimen consists of a shave biopsy measuring [id number] and it is inked. Jar 0. Specimen B: Received is one formalin filled container labeled with the patient's name and designated left ant. tibia. The specimen consists of a shave biopsy measuring [id number] and it is inked. Jar 0. 3 4:53 PM [facility] DERMATOPATHOLOGY [facility]ORATORY Microscopic Description Specimen A. [...] present at the margin of the specimen. 3 4:53 PM [facility] DERMATOPATHOLOGY LABORATORY Disclaimer An external and [...] purposes. Billing Codes Specimen Charges Stain Charges 84510 16992 1 1 3 4:53 PM HI TEACHER DERMATOPATHOLOGY LABORATORY Embedded Images 3 4:53 PM HI TEACHER DERMATOPATHOLOGY LABORATORY Pathology/Cytology TISSUE SPECIMEN FROM SKIN / Unknown 07/05/2022 07/07/2022 6:54 AM HI TEACHER Miscellaneous samples (specimen) TISSUE SPECIMEN FROM SKIN / Unknown 07/05/2022 07/07/2022 6:54 AM HI TEACHER us Abdifatah Chun MD LAB - PATHOLOGY/CYTOLOGY ORDERAB LES Final Result DERMATOPATHOLOGY LABORATORY [facility] - Department of Dermatology [facility] Medicine [address] [place] [address], [address] [phone] documented in this encounter Visit Diagnoses Not on filedocumented in this encounter Care Teams Supervisor Public Health Nursing Relationship Specialty Start Date End Date Britney Brito PA [address] [place] [address] PCP - General 03/15/17 documented as of this encounter
--- OUTSIDE RECORDS SUMMARY | 2025-01-20 15:41 | XMS_ITS | Encounter Summary ---
Author Organization [facility] Address [address] [facility] [place] [address] Care Team Providers Care Hay Baler Name Role Phone Britney Brito Primary Care Pr ovider Encounter Details Date Type Department Care Team (Late st Contact Info) Description 03/12/2024 Lab Requisition [facility] [address] [place] [phone] Abdifatah Chun MD [address] [place], [place] [phone] Social History Tobacco Use Types Packs/Day Years Used Date Smoking Tobacco: Every Day Smokeless Tobacco: Never Alcohol Use Standard Drinks/Week Comments No 0 (1 standard drink = 0.6 oz pur e alcohol) Comments Unknown Sex and Gender Information Value Date Recorded Sex Assigned at Not on file 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 Gender Identity Not on file Sexual Orientation Not on file documented as of this encounter Plan of Treatment Not on file documented as of this encounter Procedures Procedure Name Priority Date/Time Associated Diagnosis Comments DERMATOPATHOLOGY Routine 03/11/2024 12:0 0 AM CDT documented in this encounter Results * DERMATOPATHOLOGY (03/11/2024 12:00 AM CDT) Case Report Dermatopathology Report Case: [id number] Authorizing Provider: Abdifatah Chun MD Collected: 03/11/2024 12:00 AM Ordering Location: [facility] - Received: 03/12/2024 07:32 AM [...] and comment) 5:20 PM T DERMATOPATHOLOGY LABORATORY at 1720 CDT Clinical History A: SCC B: Bx proven [...] carcinoma cannot be ruled out. 5:20 PM CDT DERMATOPATHOLOGY LABORATORY Disclaimer An external and internal positive and negative controls are appropriate for the histochemical, immunohistochemical and immunofluorescence stain(s) in this case (if any), except where stated explicitly. The performance characteristics of the stain(s) cited in this report were developed and its performance characteristic determined by the Dermatopathology Laboratory at [facility], directed by Dr. Trung Pimentel. These tests need not be, and therefore are not, approved by the [place] Food and Drug Administration. The tests are used for clinical purposes. Billing Codes Specimen Charges Stain Charges 84300 97430 1 1 4 5:20 PM CDT DERMATOPATHOLOGY LABORATORY Embedded Images 5:20 PM CDT DERMATOPATHOLOGY LABORATORY Pathology/Cytology TISSUE SPECIMEN FROM SKIN / Unknown 03/11/2024 03/12/2024 7:32 AM CDT Miscellaneous samples (specimen) TISSUE SPECIMEN FROM SKIN / Unknown 03/11/2024 03/12/2024 7:32 AM CDT us Abdifatah Chun MD LAB - PATHOLOGY/CYTOLOGY ORDERAB LES Final Result DERMATOPATHOLOGY LABORATORY [facility] - Department of Dermatology [facility] Medicine [address] [place] [address], [address] [phone] documented in this encounter Visit Diagnoses Not on filedocumented in this encounter Care Teams Hay Baler Relationship Specialty Start Date End Date Britney Brito PA [address] [place] [address] PCP - General 03/15/17 documented as of this encounter
--- OUTSIDE RECORDS SUMMARY | 2025-01-20 15:41 | XMS_ITS | Clinical Summary ---
Author Organization [facility] Address [address] [facility] [place] [address] Care Team Providers Care Primary Montessori Teacher Name Role Phone Britney Brito Primary Care Pr ovider Source Comments [facility],non-owned Affiliates and Associated Physician Practices is amultiple site organization consisting of ambulatory clinics and hospital sitesin [place], [place], [place] and [place]. This disclosure is being madepursuant to the Care Everywhere program and may not contain all information available regarding this patient. Last updated 18.[facility] Medications * Be aware that medications may not be up to date on this document. Alwaysverify current medications with the patient. mupirocin (BACTROBAN) 2 % ointment 30 g [...] fluticasone propionate (FLONASE) 50 MCG/ACT nasal spray [place] 1 spray into each nostril DAILY. 03/15/2017 [...] 25 mg by mouth. 03/15/2017 Active Calcium Carb-Cholecalci ferol (CALCIUM + D3) 600-200 MG-UNIT Take by mouth. 03/15/2017 Active levothyroxine (SYNTHROID) 112 MCG tablet Take 112 mcg by mouth DAILY. 03/15/2017 Active metFORMIN (GLUCOPHAGE) 850 MG tablet Take 850 mg by mouth 2 times daily with morning and evening meal. 03/15/2017 Active temazepam (RESTORIL) 30 MG capsule Take 30 mg by mouth. 03/15/2017 Active desvenlafaxine SR 24hr (PRISTIQ;KHEDEZ LA) 50 MG tablet Take by mouth. 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 Gender Identity Not on file Sexual Orientation [...] MAMMOGRAM 1965 MEDICARE AWV 12 MONTHS 1964 HIV SCREENING 02/09/1979 HEPATITIS C SCREENING 02/05/1982 DTAP/TDAP/TD VACCINES (1 - Tdap) 02/09/1983 PNEUMOCOCCAL VACCINE 50+ (1 of 2 - PCV) 02/09/1983 PAP SMEAR 02/09/1985 ZOSTER VACCINE (1 of 2) 02/09/2014 COVID-19 VACCINE (2023-2 5 season) 2024 DEPRESSION SCREENING 06/05/2024 INFLUENZA VACCINE (#1) 2025 Respiratory Syncytial Virus (RSV) Vaccine Pt: or [...] to complete this topic MENINGOCOCCAL (Group B) VACC INE SHARED DECISION-MAKING Aged Out No longer eligibl e based on patient's age to complete this topic MENINGOCOCCAL GROUPS A/C/Y/W VACCINE Aged Out No longer eligible b ased on patient's age to complete this topic Insurance MEDICARE MEDICAID - OUT OF [facility] MEDICARE MEDICAID - [place] Care Teams Primary Montessori Teacher Relationship Specialty Start Date End Date Britney Brito PA [address] [place] [address] PCP - General 03/15/17
--- OUTSIDE RECORDS SUMMARY | 2025-01-20 15:41 | XMS_ITS | Encounter Summary ---
Author Organization [facility] Address [address] [facility] [place] [address] Care Team Providers Care Senior Software Qa Engineer Name Role Phone Britney Brito Primary Care Pr ovider Encounter Details Date Type Department Care Team (Late st Contact Info) Description 09/20/2023 Lab Requisition [facility] [address] [place] [phone] Abdifatah Chun MD [address] [place], [place] [phone] Social History Tobacco Use Types Packs/Day Years Used Date Smoking Tobacco: Every Day Smokeless Tobacco: Never Alcohol Use Standard Drinks/Week Comments No 0 (1 standard drink = 0.6 oz pur e alcohol) Comments Unknown Sex and Gender Information Value Date Recorded Sex Assigned at Not on file 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 Gender Identity Not on file Sexual Orientation Not on file documented as of this encounter Plan of Treatment Not on file documented as of this encounter Procedures Procedure Name Priority Date/Time Associated Diagnosis Comments DERMATOPATHOLOGY Routine 09/19/2023 3:33 AM CDT documented in this encounter Results * DERMATOPATHOLOGY (09/19/2023 3:33 AM CDT) Case Report Dermatopathology Report Case: [id number] Authorizing Provider: Abdifatah Chun MD Collected: 09/19/2023 03:33 AM Ordering Location: [facility] - Received: 09/20/2023 08:30 AM DermPath Lab Pathologist: Ana Shaikh MD Specimens: A) - Skin, right upper back B) - Skin, right anterior tibia 4:02 PM T DERMATOPATHOLOGY LABORATORY Final Diagnosis Specimen A. 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 SKIN, right anterior tibia: BENIGN VERRUCOUS KERATOSIS, INFLAMED (L82.1) HEALING SKIN CHANGES (L90.5) (see microscopic description) 4:02 PM [facility] DERMATOPATHOLOGY LABORATORY at 1602 CDT Clinical History A: R/O Neoplasm vs Benign Nevus B: R/O Neoplasm 4:02 PM [facility] DERMATOPATHOLOGY LABORATORY Gross Description Specimen A: Received [...] measuring 9x8x1 mm. Jar 0. 4:02 PM [facility] DERMATOPATHOLOGY LABORATORY Microscopic Description Specimen A. SKIN, [...] sections were obtained and reviewed. 4:02 PM [facility] DERMATOPATHOLOGY LABORATORY Disclaimer An external and internal positive and negative controls are appropriate for the histochemical, immunohistochemical and immunofluorescence stain(s) in this case (if any), except where stated explicitly. The performance characteristics of the stain(s) cited in this report were developed and its performance characteristic determined by the Dermatopathology Laboratory at [facility], directed by Dr. Trung Pimentel. These tests need not be, and therefore are not, approved by the [place] Food and Drug Administration. The tests are used for clinical purposes. Billing Codes Specimen Charges Stain Charges 69060 97187 1 1 4 4:02 PM CDT DERMATOPATHOLOGY LABORATORY Embedded Images 4 4:02 PM CDT DERMATOPATHOLOGY LABORATORY Pathology/Cytology TISSUE SPECIMEN FROM SKIN / Unknown 09/19/2023 3:33 AM CDT 09/20/2023 8:30 AM CDT Miscellaneous samples (specimen) TISSUE SPECIMEN FROM SKIN / Unknown 09/19/2023 3:33 AM CDT 09/20/2023 8:30 AM CDT Abdifatah Chun MD LAB - PATHOLOGY/CYTOLOGY ORDERAB LES Final Result DERMATOPATHOLOGY LABORATORY [facility] - Department of Dermatology [facility] Specialized Medicine [address] [place] [address], [address] [phone] documented in this encounter Visit Diagnoses Not on filedocumented in this encounter Care Teams Senior Software Qa Engineer Relationship Specialty Start Date End Date Britney Brito PA [address] [place] [address] PCP - General 03/15/17 documented as of this encounter
--- OUTSIDE RECORDS SUMMARY | 2025-01-20 15:41 | XMS_ITS | Clinical Summary ---
Author Organization [facility] Address [address] [facility] [place] [address] Care Team Providers Care Pediatric Psychologist Name Role Phone Britney Borja Primary Care Provider [phone] Allergies Active Allergy Reactions Criticality Noted Date Comments Amoxicillin-Pot Clavulanate Itching Medium 12/10/19 21 Medications fluticasone (FLONASE) 50 mcg/spray [place], Suspension 1 [place]. 03/15/20 17 Active desvenlafaxine 50 mg Extended [...] Encounters Date Type Department Care Team Description 01/07/2025 External Device Data [facility] ABSTRACTION Provider, Abstract 11/26/2024 External Device Data [facility] ABSTRACTION Provider, Abstract 10/29/2024 External Device Data [facility] ABSTRACTION Provider, Abstract 10/23/2024 External Device Data [facility]STRACTION Provider, Abstract 10/22/2024 External Device Data [facility]STRACTION Provider, Abstract [...] 3:30 PM CDT Height 157.5 cm (5' 2) 12/08/2022 3:30 PM CDT Body Mass Index 29.81 12/08/2022 3:30 PM CDT Plan of Treatment Upcoming Encounters Date Type Department Care Team (Late st Contact Info) Description 01/23/2025 10:00 AM CDT Office Visit [facility] Oncology and Hematology - [place] [address] [address] [place] [address] Sincere Feliz MD [address] [facility] [address] [place] [address] Health Maintenance Due Date Last Done Comments DIABETES ANNUAL FOOT EXAM 02/09/1982 DIABETES MICROALBUMIN ANNUAL SCREEN 02/09/1982 LDL CHOLESTEROL ANNUAL 02/09/1982 DTAP/TDAP/TD VACCINES (1 - Tdap) 02/09/1983 Traditional Medicare (ACO) Annual Wellness Visit 02/09/1983 FIT-DNA Q 3 years 02/09/2009 FIT/FOBT Q 1 year 02/09/2009 Flex Sig/CT Colonography Q 5 years 02/09/2009 ZOSTER VACCINE (2 of 3) 12/29/2017 11/04/19 18, 09/02/2017, 09/01/2015 DIABETES ANNUAL RETINAL EXAM 02/07/2020 02/06/2019, 02/06/2019, 12/04/2015, Additional history exists BREAST CANCER SCREENING 10/19/2023 10/19/19 23, 10/18/2022, 12/22/2020, Additional history exists DIABETES HBA1C Q 6 MONTHS 11/07/20232022, 12/12/2022, 06/03/2022, Additional history exists RSV VACCINE (60+ or ) (1 - Risk 60-74 years 1-dose series) 2024 INFLUENZA VACCINE (#1) 2025 , 04/22/2019, 03/20/2019, Additional history exists PAP SMEAR 06/07/2025 06/07/2022, 08/2022, 01/13/2020, Additional history exists CERVICAL CANCER SCREENING 06/07/2027 HPV/Cotest (21-29) 06/07/2027 06/07/2022, 12/14/2015 HPV/Cotest (30-65) 06/07/2027 06/07/2022, 12/14/2015 COLORECTAL SCREENING 01/07/2030 01/08/2020, 01/08/2020, 01/08/2020, Additional history exists Colorectal Cancer Screening 01/07/2030 HEPATITIS B VACCINES Aged Out No long er eligible based on patient's age to complete this topic Insurance MEDICARE PART A AND B [place] [facility] [place] [address] Care Teams Pediatric Psychologist Relationship Specialty Start Date End Date Britnye Borja PA PCP - General Physician Books Binder 01/22/18
--- OUTSIDE RECORDS SUMMARY | 2025-01-20 15:42 | XMS_ITS | Clinical Summary ---
Author Organization [facility] Address [address] [place] [address] Care Team Providers Care Machine Design Checker Name Role Phone Beulah Osorio MD Primary Care Provider Unavail able Olivia Yip PA-C Unavailable [phone] Shavonne Begum MD Unavailable Allergies Active Allergy Reactions Criticality Noted Date Comments Amoxicillin-Pot Clavulanate Itching 12/20/19 24 Medications albuterol sulfate HFA 108 (90 Base) MCG/ACT inhaler Inhale 2 puffs into the lungs every 4 (four) hours as needed for Wheezing or Shortness of breath. 4 Active atorvastatin (LIPITOR) 10 MG tablet Take 1 tablet (10 mg total) by mouth nightly at bedtime. 4 Active cyanocobalamin (B-12) 1000 MCG/ML injection [...] bedtime. 4 Active Lancets (ONETOUCH DELICA PLUS [id number]) Misc 1 Units as needed. 4 Active SYNTHROID 150 MCG tablet Take 1 tablet (150 mcg total) by mouth daily. 4 Active liothyronine (CYTOMEL) 5 MCG Tab Take 1 tablet (5 mcg total) by mouth 2 (two) times daily. 4 Active metFORMIN (GLUCOPHAGE) 850 MG tablet Take 1 tablet (850 mg total) by mouth 3 (three) times daily with meals. 4 Active montelukast (SINGULAIR) 10 MG tablet [...] mouth 2 (two) times daily. 4 Active budesonide-form oterol (BREYNA) 80-4.5 MCG/ACT inhaler Inhale 2 puffs into the lungs 2 (two) times daily. Active furosemide (LASIX) 20 MG tablet Take 1 tablet (20 mg total) by mouth daily. Active amLODIPine (NORVASC) 5 MG tablet Take 1 tablet (5 mg total) by mouth daily. 30 tablet 3 4 Active calcium carb-cholecalci ferol (CALTRATE+D) 600-10 MG-MCG Tab tablet Take 1 tablet by mouth daily. Active HYDROcodone-davin taminophen (NORCO) 5-325 MG tablet Take 1 tablet by mouth 2 (two) times daily as needed. Active GEMTESA 75 MG tablet Take 1 tablet (75 mg total) by mouth daily. Active desvenlafaxine ER (PRISTIQ) 50 MG 24 hr tablet Take 1 tablet (50 mg total) by mouth daily. Active Multiple Vitamin (MULTIVITAMIN ADULT OR) Take 1 tablet by mouth daily. Active Varenicline Tartrate (CHANTIX OR) Take by mouth 2 (two) times a day. Active oxyCODONE-aceta minophen (PERCOCET) 5-325 MG tabletIndicatio ns:Chronic Pain Take 1 tablet by mouth every 4 (four) hours as needed. Indications: Chronic Pain 30 tablet 5 Active naloxone (NARCAN) 4 MG/0.1ML nasal spray 1 spray by Nasal route as needed for Opioid reversal. may repeat every 2 to 3 minutes in alternating nostrils until medical assistance becomes available 1 each 4 12/28/19 25 naLOXone (NARCAN) 0.4 mg/mL injection Inject 1 mL (0.4 mg total) into the muscle once as needed (Opioid reversal). 1 mL 4 12/28/19 25 Active Problems Problem Noted Date Diagnosed Date Pyelonephritis 12/22/2023 Choledocholithiasis 12/20/2023 Encounters Date Type Department Care Team Description 11/07/2024 2:55 PM CDT - 11/07/2024 11:59 PM CDT Hospital Encounter [facility] [place] [address] Matt Rico MD Discharge Disposition: Home or Self Care (Routine Discharge) 11/07/2024 Travel from Last 3 Months Family History Medical History Relation Comments Diabetes Brother Cirrhosis Father Depression Mother Diabetes Mother Heart Disease Mother Breast Cancer Sister Depression Sister Relation Status Comments Brother Alive Father Mother Sister Social History Tobacco Use Types Packs/Day Years Used Date Smoking Tobacco: Former Cigarettes 1 47.1 1 978 - 07/06/2024 Smokeless Tobacco: Never Alcohol Use Standard Drinks/Week Comments Not Currently 0 (1 standard drink = 0.6 oz pur e alcohol) [facility] Utilities Answer Date Recorded In the past 12 months has th e electric, gas, oil, or water company threatened to shut off services in your [...] any time in the past 12 m [facility], were you homeless or living in a detention (including now)? No 12/22/2023 Comments No Sex and Gender Information Value Date Recorded Sex Assigned at Female 07/25/2024 5:16 AM GOVERNMENT CONTRACTS MANAGER Legal Sex Female 8:30 AM CDT Gender Identity Not on file Sexual Orientation Not on file Last Filed Vital Signs Vital Sign Reading Time Taken Comments Blood Pressure 156/98 07/25/2024 10:30 AM GOVERNMENT CONTRACTS MANAGER Pulse 81 07/25/2024 10:30 AM GOVERNMENT CONTRACTS MANAGER Temperature 37.3 C (99.2 F) 07/25/2024 10:30 AM GOVERNMENT CONTRACTS MANAGER Respiratory Rate 18 07/25/2024 10:3 0 AM GOVERNMENT CONTRACTS MANAGER Oxygen Saturation 94% 07/25/2024 10: 30 AM GOVERNMENT CONTRACTS MANAGER Inhaled Oxygen Concentration - - Weight 77.9 kg (171 lb 11.8 oz) 07/25/2024 5:55 AM GOVERNMENT CONTRACTS MANAGER Height 158.8 cm (5' 2.5) 07/25/2024 5:55 AM GOVERNMENT CONTRACTS MANAGER Body Mass Index 30.91 07/25/2024 5:55 AM GOVERNMENT CONTRACTS MANAGER Plan of Treatment Health Maintenance Due Date [...] 2024 05/09/2022, 01/03/2022, 04/24/2021, Additional history exists PHQ-2 (Physician [place]) 06/05/2024 RSV Immunization or 60+ Years (1 - 1-dose 75+ series) 02/09/2039 Zoster Vaccines Completed 11/03/2017, 060 06/2017, 09/02/2017, Additional history exists Pneumococcal Vaccine: 50+ Years Completed 01/16/2022, 03/31/2008 Meningococcal B Vaccine Aged Out No [...] Colon RN Medical Devices Implanted Type Area Loom Operator Apprentice Device Identifier Shelf Expiration Date Model / Serial / Lot Mesh Ventralex Large [id number] - [id number] Implanted:Qt y: 1 on 07/25/2024 by Zac Lucero MD at [facility] Mesh N/A: Umbilical [employer] - [employer] [id number] 09/30/2025 [id number] / / [id number] Shoulder Components Shoulder Components Explanted Type Area Loom Operator Apprentice Device Identifier Shelf Expiration Date Model / Serial / Lot Stent Advanix Biliary 7fr 7cm - [id number] Implanted:Qty: 1 on 12/20/2023 by Hayes Villanueva MD at [facility] Stent N/A: Bile Duct [employer] 10/19/2024 [id number] / [id number] / [id number] Geenen Pancreatic Stent Implanted:Qty: 1 on 12/20/2023 by Hayes Villanueva MD at [facility] 07/06/2024 / GPSO-4-5 / [id number] Procedures Procedure Name Priority Date/Time Associated Diagnosis Comments XR PELVIS AP+TOMMIE HIPS 3V Routine 11/07/2024 3:13 PM CDT Pain, unspecified XR KNEE LT 3V Routine 11/07/2024 3:13 PM CDT Pain, unspecified XR KNEE RT 3V Routine 11/07/2024 3:13 PM CDT Pain, unspecified from Last 3 Months Results * XR PELVIS AP+TOMMIE HIPS 3V (11/07/2024 3:13 PM CDT) Anatomical Region Laterality Modality Hip Radiographic Cady ging 11/14/2024 7:31 PM CDT Impressions 11/14/2024 7:32 PM CDT IMPRESSION: Mild to moderate degenerative changes of the bilateral hip joints. Ordered By: MATT RICO Interpreted By: Cornell Lorenzo MD, 11/14/2024 7:31 PM Narrative 11/14/2024 7:32 PM CDT [address] [address] Examination: XR PELVIS AP+TOMMIE HIPS 3V Exam time: 11/07/2024 2:59 PM Clinical history: Chronic pain. Comparison: No previous. Technique: Single view pelvis and 2 views of the right and left hip. Findings: There are degenerative changes at the hip joints of jdpf-la-rswckycz degree with narrowing of the joint spaces and periarticular sclerosis. Marginal osteophytes along the acetabular fossa and peritrochanteric bursitis on both sides. Degenerative changes appear slightly worse on the left. No acute bony abnormalities. Mild degenerative changes in the lower lumbar spine. Procedure Note Cornell Lorenzo MD - 11/14/[address] [address] Examination: XR PELVIS AP+TOMMIE HIPS 3V Exam time: 11/07/2024 2:59 PM Clinical history: Chronic pain. Comparison: No previous. Technique: Single view pelvis and 2 views of the right and left hip. Findings: There are degenerative changes at the hip joints byntzj-nr-gcplyuvb degree with narrowing of the joint spaces andperiarticular sclerosis. Marginal osteophytes along the acetabular fossaand peritrochanteric bursitis on both sides. Degenerative changes appearslightly worse on the left. No acute bony abnormalities. Mild degenerative changes in the lower lumbar spine. IMPRESSION: Mild to moderate degenerative changes of the bilateral hip joints. Ordered By: MATT RICO Interpreted By: Cornell Lorenzo MD, 11/14/2024 7:31 PM Matt Rico MD GENERAL IMAGING Final Resu lt * XR KNEE RT 3V (11/07/2024 3:13 PM CDT) Anatomical Region Laterality Modality Knee Radiographic Cady ging 11/14/2024 7:33 PM CDT Impressions 11/14/2024 7:34 PM CDT IMPRESSION: 1. Mild degenerative changes of the right knee joint. 2. Mild chondrocalcinosis. Ordered By: MATT RICO Interpreted By: Cornell Lorenzo MD, 11/14/2024 7:33 PM Narrative 11/14/2024 7:34 PM CDT [place] [address] Examination: XR KNEE RT 3V Exam time: 11/07/2024 2:59 PM Clinical history: Chronic pain. Comparison: No previous. Technique: 3 projections. Findings: There are degenerative changes of mild degree in the right knee joint more pronounced in the medial compartment. There is mild chondrocalcinosis. Enthesopathy near the upper pole of the patella. No acute bony abnormalities. Surrounding soft tissues of unremarkable. Procedure Note Cornell Lorenzo MD - 11/14/2024 [place] [address] Examination: XR KNEE RT 3V Exam time: 11/07/2024 2:59 PM Clinical history: Chronic pain. Comparison: No previous. Technique: 3 projections. Findings: There are degenerative changes of mild degree in the right kneejoint more pronounced in the medial compartment. There is mildchondrocalcinosis. Enthesopathy near the upper pole of the patella. Noacute bony abnormalities. Surrounding soft tissues of unremarkable. IMPRESSION: 1. Mild degenerative changes of the right knee joint. 2. Mild chondrocalcinosis. Ordered By: MATT RICO Interpreted By: Cornell Lorenzo MD, 11/14/2024 7:33 PM Matt Rico MD GENERAL IMAGING Final Resu lt * XR KNEE LT 3V (11/07/2024 3:13 PM CDT) Anatomical Region Laterality Modality Knee Radiographic Cady ging 11/14/2024 7:34 PM CDT Impressions 11/14/2024 7:35 PM CDT IMPRESSION: Mild degenerative changes. Ordered By: MATT RICO Interpreted By: Cornell Lorenzo MD, 11/14/2024 7:34 PM Narrative 11/14/2024 7:35 PM CDT [address] [address] Examination: XR KNEE LT 3V Exam time: 11/07/2024 2:59 PM Clinical history: Chronic pain. Comparison: No previous. Technique: 3 views. Findings: There are degenerative changes of mild degree more pronounced in the anterior joint and to a lesser degree in the medial compartment. There are no acute bony abnormalities. Enthesopathy in the upper pole of the patella. Surrounding soft tissues are unremarkable. Procedure Note Cornell Lorenzo MD - 11/14/[address] [address] Examination: XR KNEE LT 3V Exam time: 11/07/2024 2:59 PM Clinical history: Chronic pain. Comparison: No previous. Technique: 3 views. Findings: There are degenerative changes of mild degree more pronounced inthe anterior joint and to a lesser degree in the medial compartment. Thereare no acute bony abnormalities. Enthesopathy in the upper pole of thepatella. Surrounding soft tissues are unremarkable. IMPRESSION: Mild degenerative changes. Ordered By: MATT RICO Interpreted By: Cornell Lorenzo MD, 11/14/2024 7:34 PM Matt Rico MD GENERAL IMAGING Final Resu lt from Last [address] [facility] [address] Advance Directives * Full Code (Latest Code Status on File) Date Activated Date Inactivated Comments 12/22/2023 3:06 PM 12/28/2023 3:04 PM * Full Code Date Activated Date Inactivated Comments 12/20/2023 4:49 PM 12/21/2023 3:22 PM Care Teams Machine Design Checker Relationship Specialty Start Date End Date Beulah Osorio MD PCP - General INTERNAL MEDICINE 07/17/24 Olivia Yip PA-C [facility] [place], [place] [phone] UROLOGY 07/17/24 Shavonne Begum MD [address] [phone] Psychiatry 07/17/24
[2025-01-20 17:41] LABS: Alanine Aminotransferase 17 U/L (6-35); Albumin Level 4.2 g/dL (3.5-5.1); Alkaline Phosphatase 70 U/L (38-126); Anion Gap 5 mmol/L (4-12); Aspartate Amino Transferase 36 U/L (14-36); Bilirubin,Total 0.2 mg/dL (0.2-1.3); Blood Urea Nitrogen 12 mg/dL (7-17); Calcium 9.1 mg/dL (8.4-10.2); Carbon Dioxide 24 mmol/L (22-30); Chloride 96 mmol/L (98-107); Estimated Glomerular Filt Rate > 60; Glucose 92 mg/dL (65-110); Potassium 4.7 mmol/L (3.4-5.0); Sodium 125 mmol/L (137-145); Total Protein 7.0 g/dL (6.3-8.2)
[2025-01-20 18:42] LABS: Immunoglobulin A 160 mg/dL (70-400); Immunoglobulin G 922 mg/dL (700-1600); Immunoglobulin M 45 mg/dL (40-230)
[2025-01-21 15:09] LABS: Free Lambda Lt Chains, Serum 16.6 mg/L (5.7-26.3); Kappa/Lambda Ratio, Serum 1.48 (0.26-1.65)
== END 2025-01-20 14:34 | disposition home or self-care (01) ==
LOC: ANHLAB 14:36
PROVIDERS: PCP Internal Medicine Gastroenterology; Visit Provider Internal Medicine Hematology & Oncology
DX: D47.2 Monoclonal gammopathy (principal)
CPT/HCPCS: 36415; 80053; 82784; 83521; 85025

== ENCOUNTER 2025-01-28 14:06 | Outpatient (CLI) | payer MEDICARE, MEDICAID, SELFPAY ==
--- OUTSIDE RECORDS SUMMARY | 2001-10-08 08:45 | XMS_ITS | Continuity of Care Document ---
Author Organization [facility] Address [address] [place] [address] [address] [place] [address] Phone Care Team Providers Care Janitorial Cleaner Name Role Phone Rema Cortez Unavailable Unavailable Advance Directives Directive Yes / No Effective Date File Name No Information Encounters Encounter Description Practice Location Reason(s) For Visit Diagnoses Date Provider Providers Copied on Encounter [facility], [address], [place], [place], [id number], [place] tel:[phone] [address] [facility] No Information May-0 6-200 2 Dana Hodgson. [address] [facility] , [address], [place], [address], [place]. tel:[phone] Family History Family Member Type Diagnosis Age At Onset No Information Payers Payer name Insurance type Covered republican ID Authoriza tion(s) [place] [id number] Social History Type Description Quantity Date Captured Comments Sex Female Smoking Status No Information Chief Complaint And Reason For Visit No Information Reason For Referral Reason For Referral No Information History Of Present Illness Encounter Date Complaint History Of Prese nt Illness No Information Functional Status Date Functional Assessmen t No Information Instructions Date Instruction Additional Infor mation No Information Assessments Type Assessment Date No Information Patient Care Teams Name Effective Dates (start - stop) Status Members No Information
--- OUTSIDE RECORDS SUMMARY | 2023-12-20 10:30 | XMS_ITS ---
Author Organization [facility] Address [address] [facility] [address] [place] [address] Care Team Providers Care Schedule Maker Name Role Phone Britney Pretty Primary Care Provider Alejandro DUQUE MD, PARVIZ Unavailable REASON FOR VISIT ERCP Encounters Encounter Location Date Provider Diagnosis [facility] [address] [place] [address] 12/20/2023 PARVIZ DUQUE Plan Of Treatment No Information Progress Notes * Ivis LEDESMADOB:1965 (59 yo F)Acc No.[id number]:12/20/2023 Patient: Ivis CUELLO Provider: Amadeo Duque MD, FASGE :1965 A ge:58 Y S ex:Female Date:12/20/2023 Address:[address] [place], [place] [phone] Pcp:FERMÍN Jones * * Electronic signature of CARY DUQUE MD, MD on 01/28/2025 at 03:11 PM EDT Sign off status: Pending * Provider: Amadeo Duque MD, FASGE Date: 12/20/2023 Generated for Bryn olivo/Reuben/eTransmitting on: 01/28/2025 03:11 PM EDT
--- OUTSIDE RECORDS SUMMARY | 2024-01-15 08:45 | XMS_ITS ---
Author Organization [facility] Address [address] [place] [address] Care Team Providers Care Career Education Teacher Name Role Phone Britney Pretty Primary Care Provider Alejandro DUQUE MD, PARVIZ Unavailable REASON FOR VISIT ERCP w/stent pull/No Auth Req* Encounters Encounter Location Date Provider Diagnosis [facility] - Op [address] [place] [phone] 01/15/2024 PARVIZFabi DUQUE Plan Of Treatment No Information Progress Notes * Ivis LEDESMADOB:1965 (59 yo F)Acc No.[id number]:01/15/2024 Patient: Ivis CUELLO Provider: Amadeo Duque MD, FASGE :1965 A ge:58 Y S ex:Female Date:01/15/2024 Address:[address] [place], [place] [phone] Pcp:FERMÍN Jones * * Electronic signature of CARY DUQUE MD, MD on 01/28/2025 at 03:11 PM EDT Sign off status: Pending * Provider: Amadeo Duque MD, FASGE Date: 01/15/2024 Generated for Sanjivi ng/Fabeleng/eTransmitting on: 01/28/2025 03:11 PM EDT
--- OUTSIDE RECORDS SUMMARY | 2024-12-23 06:00 | XMS_ITS ---
Author Organization [facility] Address [address] [place], [place] [address] Care Team Providers Care Carbide Grinder Name Role Phone Angle Iyer [phone] REASON FOR VISIT NEW VEHICLE SALES CONSULTANT diabetic/HBP/weight gain Encounters Encounter Location Date Provider Diagnosis [facility]MO Dr. Iyer [address] [place] [phone] 12/23/2024 Angle Iyer Plan Of Treatment Next Appt Details Provider Name:Angle Iyer, 03:20:00 PM, [address] [place] [address], [phone], Progress Notes * DECLANIvisDOB:1965 (59 yo F)Acc No.[id number]:12/23/2024 Progress Notes Patient: Ivis Salgado Provider: Carlyn Iyer MD :1965 A ge:59 Y S ex:Female Date:12/23/2024 Phone: Address:[address] [place] [address] Subjective: * Chief Complaints: * N P diabetic/HBP/weight gain * Electronic signature of Patric Iyer MD on 01/28/2025 at 02:11 PM CDT Sign off status: Pending * Provider: Carlyn Iyer MD Date: 12/23/2024 Generated for Bryn olivo/Reuben/eTransmitting on: 01/28/2025 02:11 PM CDT
--- OUTSIDE RECORDS SUMMARY | 2025-01-28 14:11 | XMS_ITS | Encounter Summary ---
Author Organization [facility] Address [address] [facility] [place] [address] Care Team Providers Care Commercial Appraiser Name Role Phone Britney Brito Primary Care Pr ovider Encounter Details Date Type Department Care Team (Late st Contact Info) Description 07/07/2022 Lab Requisition [facility] DermPath Lab [address] [place] [phone] Abdifatah Chun MD [address] [place] [id number] Social History Tobacco Use Types Packs/Day Years Used Date Smoking Tobacco: Every Day Smokeless Tobacco: Never Alcohol Use Standard Drinks/Week Comments No 0 (1 standard drink = 0.6 oz pur e alcohol) Comments Unknown Sex and Gender Information Value Date Recorded Sex Assigned at Not on file Legal Sex Female 5:19 PM DIRECTOR OF RESEARCH CENTER Gender Identity Not on file Sexual Orientation Not on file documented as of this encounter Plan of Treatment Not on file documented as of this encounter Procedures Procedure Name Priority Date/Time Associated Diagnosis Comments DERMATOPATHOLOGY Routine 07/05/2022 12:0 0 AM DIRECTOR OF RESEARCH CENTER documented in this encounter Results * DERMATOPATHOLOGY (07/05/2022 12:00 AM DIRECTOR OF RESEARCH CENTER) Case Report Dermatopathology Report Case: [id number] Authorizing Provider: Abdifatah Chun MD Collected: 07/05/2022 12:00 AM Ordering Location: [facility] DermPath Lab Received: 07/07/2022 06:54 AM Pathologist: Ana Shaikh MD Specimens: A) - Skin, left thigh B) - Skin, left ant. tibia 3 4:53 PM [facility] DERMATOPATHOLOGY LABORATORY Final Diagnosis Specimen A. SKIN, left thigh: SQUAMOUS PROLIFERATION (D48.5) PRESENT AT MARGIN (see microscopic description and comment) Specimen B. SKIN, left ant. tibia: SQUAMOUS CELL CARCINOMA, WELL DIFFERENTIATED (C44.729) PRESENT AT MARGIN 3 4:53 PM [facility] DERMATOPATHOLOGY LABORATORY at 1653 DIRECTOR OF RESEARCH CENTER Clinical History A-B: R/O Neoplasm vs. PN. Please Check Margins. 3 4:53 PM [facility] DERMATOPATHOLOGY LABORATORY Gross Description Specimen A: Received is one formalin filled container labeled with the patient's name and designated left thigh. The specimen consists of a shave biopsy measuring [id number] and it is inked. Jar 0. Specimen B: Received is one formalin filled container labeled with the patient's name and designated left ant. tibia. The specimen consists of a shave biopsy measuring [id number] and it is inked. Jar 0. 3 4:53 PM [facility] DERMATOPATHOLOGY [...] margin of the specimen. 3 4:53 PM [facility] DERMATOPATHOLOGY LABORATORY Disclaimer An external and internal positive and negative controls are appropriate for the histochemical, immunohistochemical and immunofluorescence stain(s) in this case (if any), except where stated explicitly. The performance characteristics of the stain(s) cited in this report were developed and its performance characteristic determined by the Dermatopathology Laboratory at [facility], directed by Dr. Trung Pimentel. These tests need not be, and therefore are not, approved by the [place] Food and Drug Administration. The tests are used for clinical purposes. Billing Codes Specimen Charges Stain Charges 84593 75049 1 1 3 4:53 PM DIRECTOR OF RESEARCH CENTER DERMATOPATHOLOGY LABORATORY Embedded Images 3 4:53 PM DIRECTOR OF RESEARCH CENTER DERMATOPATHOLOGY LABORATORY Pathology/Cytology TISSUE SPECIMEN FROM SKIN / Unknown 07/05/2022 07/07/2022 6:54 AM DIRECTOR OF RESEARCH CENTER Miscellaneous samples (specimen) TISSUE SPECIMEN FROM SKIN / Unknown 07/05/2022 07/07/2022 6:54 AM DIRECTOR OF RESEARCH CENTER us Abdifatah Chun MD LAB - PATHOLOGY/CYTOLOGY ORDERAB LES Final Result DERMATOPATHOLOGY LABORATORY [facility] - Department of Dermatology [facility] Medicine [address] [place] [address], [address] [phone] documented in this encounter Visit Diagnoses Not on filedocumented in this encounter Care Teams Commercial Appraiser Relationship Specialty Start Date End Date Britney Brito PA [address] [place] [phone] PCP - General 03/15/17 documented as of this encounter
--- OUTSIDE RECORDS SUMMARY | 2025-01-28 14:11 | XMS_ITS | Encounter Summary ---
Author Organization [facility] Address [address] [facility] [place] [address] Care Team Providers Care Element Winding Machine Tender Name Role Phone Britney Brito Primary Care Pr ovider Encounter Details Date Type Department Care Team (Late st Contact Info) Description 04/19/2023 Lab Requisition [facility] - DermPath Lab [address] [place] [phone] Abdifatah Chun MD [address] [place], [place] [phone] Social History Tobacco Use Types Packs/Day Years Used Date Smoking Tobacco: Every Day Smokeless Tobacco: Never Alcohol Use Standard Drinks/Week Comments No 0 (1 standard drink = 0.6 oz pur e alcohol) Comments Unknown Sex and Gender Information Value Date Recorded Sex Assigned at Not on file Legal Sex Female 5:19 PM OPERATIONS/DISPATCH Gender Identity Not on file Sexual Orientation Not on file documented as of this encounter Plan of Treatment Not on file documented as of this encounter Procedures Procedure Name Priority Date/Time Associated Diagnosis Comments DERMATOPATHOLOGY Routine 04/17/2023 12:0 0 AM OPERATIONS/DISPATCH documented in this encounter Results * DERMATOPATHOLOGY (04/17/2023 12:00 AM OPERATIONS/DISPATCH) Case Report Dermatopathology Report Case: [id number] Authorizing Provider: Abdifatah Chun MD Collected: 04/17/2023 12:00 AM Ordering Location: [facility] DermPath Lab Received: 04/19/2023 09:18 AM Pathologist: Ana Shaikh MD Specimen: Skin, left lat lower leg 3 2:12 PM [facility] DERMATOPATHOLOGY LABORATORY Final Diagnosis Specimen A. SKIN, left lat lower leg: GRANULATION TISSUE, FRAGMENTS OF (L92.9) (see microscopic description and comment) 3 2:12 PM [facility] DERMATOPATHOLOGY LABORATORY at 1412 OPERATIONS/DISPATCH Clinical History Bx Proven Can't R/O SCC Check Margins and Prior Biopsy 3 2:12 PM [facility] DERMATOPATHOLOGY LABORATORY Gross Description Specimen A: Received is one formalin filled container labeled with the patient's name and designated left lat lower leg. The specimen consists of a(3) pieces in aggregate shave biopsy measuring 5x5x1 mm. Jar 0. 3 2:12 PM [facility] DERMATOPATHOLOGY LABORATORY Microscopic Description Specimen A. SKIN, left lat lower leg: The specimen is fragmented. Sections show edema, an increased number of thin-walled vessels and a prominent mixed inflammatory infiltrate. COMMENT: Given the superficial and fragmented nature of the biopsy specimen, a deeper process cannot be excluded. 3 2:12 PM [facility] DERMATOPATHOLOGY LABORATORY Disclaimer An external and internal positive and negative controls are appropriate for the histochemical, immunohistochemical and immunofluorescence stain(s) in this case (if any), except where stated explicitly. The performance characteristics of the stain(s) cited in this report were developed and its performance characteristic determined by the Dermatopathology Laboratory at [facility], directed by Dr. Trung Pimentel. These tests need not be, and therefore are not, approved by the [place] Food and Drug Administration. The tests are used for clinical purposes. Billing Codes Specimen Charges Stain Charges 11830 1 3 2:12 PM [facility] DERMATOPATHOLOGY LABORATORY Embedded Images 3 2:12 PM [facility] DERMATOPATHOLOGY LABORATORY Pathology/Cytolog y TISSUE SPECIMEN FROM SKIN / Unknown 04/17/2023 04/19/2023 9:18 AM OPERATIONS/DISPATCH us Abdifatah Chun MD LAB - PATHOLOGY/CYTOLOGY ORDERAB LES Final Result DERMATOPATHOLOGY LABORATORY [facility] - Department of Dermatology [address], [address] [place], [place] [id number] [place] [address] documented in this encounter Visit Diagnoses Not on filedocumented in this encounter Care Teams Element Winding Machine Tender Relationship Specialty Start Date End Date Britney Brito PA [address] [place] [phone] PCP - General 03/15/17 documented as of this encounter
--- OUTSIDE RECORDS SUMMARY | 2025-01-28 14:11 | XMS_ITS | Encounter Summary ---
Author Organization [facility] Address [address] [place] [address] Care Team Providers Care Lobster Fisherman Name Role Phone Britney Brito Primary Care Pr ovider Encounter Details Date Type Department Care Team (Late st Contact Info) Description 04/04/2023 Lab Requisition [facility] - DermPath Lab [address] [place] [phone] Abdifatah Chun MD [address] [place], [place] [phone] Social History Tobacco Use Types Packs/Day Years Used Date Smoking Tobacco: Every Day Smokeless Tobacco: Never Alcohol Use Standard Drinks/Week Comments No 0 (1 standard drink = 0.6 oz pur e alcohol) Comments Unknown Sex and Gender Information Value Date Recorded Sex Assigned at Not on file Legal Sex Female 5:19 PM CONTROL BOARD OPERATOR Gender Identity Not on file Sexual Orientation Not on file documented as of this encounter Plan of Treatment Not on file documented as of this encounter Procedures Procedure Name Priority Date/Time Associated Diagnosis Comments DERMATOPATHOLOGY Routine 04/03/2023 12:0 0 AM CDT documented in this encounter Results * DERMATOPATHOLOGY (04/03/2023 12:00 AM CDT) Case Report Dermatopathology Report Case: [id number] Authorizing Provider: Abdifatah Chun MD Collected: 04/03/2023 12:00 AM Ordering Location: [facility] DermPath Lab Received: 04/05/2023 08:08 [...] characteristic determined by the Dermatopathology Laboratory at [facility], directed by Dr. Trung Pimentel. These tests need not be, and therefore are not, approved by the [place] Food and Drug Administration. The tests are used for clinical purposes. Billing Codes Specimen Charges Stain Charges 33887 56684 1 1 3 5:36 PM CDT DERMATOPATHOLOGY LABORATORY Embedded Images 3 5:36 PM CDT DERMATOPATHOLOGY LABORATORY Pathology/Cytology TISSUE SPECIMEN FROM SKIN / Unknown 04/03/2023 04/05/2023 8:08 AM CDT Miscellaneous samples (specimen) TISSUE SPECIMEN FROM SKIN / Unknown 04/03/2023 04/05/2023 8:08 AM CDT us Abdifatah Chun MD LAB - PATHOLOGY/CYTOLOGY ORDERAB LES Final Result DERMATOPATHOLOGY LABORATORY [facility] - Department of Dermatology [facility] [address] [place] [address], [address] [phone] documented in this encounter Visit Diagnoses Not on filedocumented in this encounter Care Teams Lobster Fisherman Relationship Specialty Start Date End Date Britney Brito PA [address] [place] [address] PCP - General 03/15/17 documented as of this encounter
--- OUTSIDE RECORDS SUMMARY | 2025-01-28 14:11 | XMS_ITS | Encounter Summary ---
Author Organization [facility] Address [address] [place] [address] Care Team Providers Care Recycling Crew Supervisor Name Role Phone Britney Brito Primary Care Pr ovider Encounter Details Date Type Department Care Team (Late st Contact Info) Description 07/19/2022 Lab Requisition [facility] DermPath Lab [address] [place] [phone] Abdifatah Chun MD [address] [place] [address] [phone] Social History Tobacco Use Types Packs/Day Years Used Date Smoking Tobacco: Every Day Smokeless Tobacco: Never Alcohol Use Standard Drinks/Week Comments No 0 (1 standard drink = 0.6 oz pur e alcohol) Comments Unknown Sex and Gender Information Value Date Recorded Sex Assigned at Not on file Legal Sex Female 5:19 PM RETAIL CONSULTANT Gender Identity Not on file Sexual Orientation Not on file documented as of this encounter Plan of Treatment Not on file documented as of this encounter Procedures Procedure Name Priority Date/Time Associated Diagnosis Comments DERMATOPATHOLOGY Routine 07/19/2022 12:0 0 AM RETAIL CONSULTANT documented in this encounter Results * DERMATOPATHOLOGY (07/19/2022 12:00 AM RETAIL CONSULTANT) Case Report Dermatopathology Report [id number]: [id number] Authorizing Provider: Abdifatah Chun MD Collected: 07/19/2022 12:00 AM Ordering Location: [facility] Received: 07/19/2022 03:15 PM Pathologist: Carlyn Pimentel MD Specimens: A) - Skin, right elbow B) - Skin, right forearm inferior C) - Skin, right forearm anterior 3 4:55 PM [facility] Final Diagnosis Specimen A. 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 SKIN, right forearm inferior: PRURIGO NODULARIS (L28.1) Specimen C. SKIN, right forearm anterior: PRURIGO NODULARIS (L28.1) 3 4:55 PM [facility] at 1655 RETAIL CONSULTANT Clinical History A-B: R/O Neoplasm. Check Margins. 3 4:55 PM [facility] Gross Description Specimen A: [...] 8x6x2 mm. Jar 0. 3 4:55 PM [facility] Microscopic Description Specimen A. [...] superficial perivascular lymphohistiocytic infiltrate. 3 4:55 PM [facility] Disclaimer An external and internal positive and negative controls are appropriate for the histochemical, immunohistochemical and immunofluorescence stain(s) in this case (if any), except where stated explicitly. The performance characteristics of the stain(s) cited in this report were developed and its performance characteristic determined by the Dermatopathology Laboratory at [facility], directed by Dr. Trung Pimentel. These tests need not be, and therefore are not, approved by the [place] Food and Drug Administration. The tests are used for clinical purposes. Billing Codes Specimen Charges Stain Charges 13682 24677 99131 1 1 1 3 4:55 PM RETAIL CONSULTANT DERMATOPATHOLOGY LABORATORY Embedded Images 3 4:55 PM RETAIL CONSULTANT DERMATOPATHOLOGY LABORATORY Pathology/Cytology TISSUE SPECIMEN FROM SKIN / Unknown 07/19/2022 07/19/2022 3:15 PM RETAIL CONSULTANT Miscellaneous samples (specimen) TISSUE SPECIMEN FROM SKIN / Unknown 07/19/2022 07/19/2022 3:15 PM RETAIL CONSULTANT Miscellaneous samples (specimen) TISSUE SPECIMEN FROM SKIN / Unknown 07/19/2022 07/19/2022 3:15 PM RETAIL CONSULTANT Abdifatah Chun MD LAB - PATHOLOGY/CYTOLOGY ORDERAB LES Final Result DERMATOPATHOLOGY LABORATORY [facility] - Department of Dermatology [facility] Specialized Medicine [address] [place] [address], [address] [phone] documented in this encounter Visit Diagnoses Not on filedocumented in this encounter Care Teams Recycling Crew Supervisor Relationship Specialty Start Date End Date Britney Brito PA [address] [place] [address] PCP - General 03/15/17 documented as of this encounter
--- OUTSIDE RECORDS SUMMARY | 2025-01-28 14:11 | XMS_ITS | Encounter Summary ---
Author Organization [facility] Address [address] [facility] [place] [address] Care Team Providers Care Public Health Doctor Name Role Phone Britney Brito Primary Care Pr ovider Encounter Details Date Type Department Care Team (Late st Contact Info) Description 07/28/[address] [facility] DermPath Lab [address] [place] [phone] Abdifatah Chun MD [address] [place] [address] [phone] Social History Tobacco Use Types Packs/Day Years Used Date Smoking Tobacco: Every Day Smokeless Tobacco: Never Alcohol Use Standard Drinks/Week Comments No 0 (1 standard drink = 0.6 oz pur e alcohol) Comments Unknown Sex and Gender Information Value Date Recorded Sex Assigned at Not on file Legal Sex Female 5:19 PM RODENT EXTERMINATOR Gender Identity Not on file Sexual Orientation Not on file documented as of this encounter Plan of Treatment Not on file documented as of this encounter Procedures Procedure Name Priority Date/Time Associated Diagnosis Comments DERMATOPATHOLOGY Routine 07/26/2022 12:0 0 AM RODENT EXTERMINATOR documented in this encounter Results * DERMATOPATHOLOGY (07/26/2022 12:00 AM RODENT EXTERMINATOR) Case Report Dermatopathology Report Case: [id number] Authorizing Provider: Abdifatah Chun MD Collected: 07/26/2022 12:00 AM Ordering Location: [facility] Derm[facility] Lab Received: 07/28/2022 06:58 AM Pathologist: Ana Shaikh MD Specimens: A) - Skin, left thigh B) - Skin, left ant tibia 3 9:55 AM [facility]ERMAT[facility]Y [facility]ORAT[facility] Final Diagnosis Specimen A. SKIN, left thigh: BENIGN VERRUCOUS KERATOSIS, CONSISTENT WITH RESIDUAL PORTIONS OF (L82.1) DERMAL SCAR (L90.5) (see microscopic description and comment) Specimen B. SKIN, left ant tibia: HYPERPLASTIC (HYPERTROPHIC) ACTINIC KERATOSIS (L57.0) PRESENT AT MARGIN DERMAL SCAR (L90.5) (see microscopic description and comment) 3 9:55 AM [facility] DERMATOPATHOLOGY LABORATORY at 0955 [facility] Clinical History A-B: Bx proven SCC Check margins 3 9:55 AM [facility] DERMATOPATHOLOGY LABORATORY Gross Description Specimen [...] 11x9x2 mm. Jar 0. 3 9:55 AM [facility] DERMATOPATHOLOGY LABORATORY Microscopic Description Specimen [...] of the specimen. COMMENT: The prior biopsy ([id number]) is reviewed. These histologic features are consistent with residual portions of benign verrucous keratosis. The differential diagnosis includes healing skin changes and prurigo nodularis. If this specimen is sampled from a larger lesion, these findings may not be retail wireless sales representative of the entire lesion. Clinicopathologic correlation [...] of the specimen. COMMENT: The prior biopsy ([id number]) is reviewed. A squamous cell carcinoma cannot be ruled out. 3 9:55 AM [facility] DERMATOPATHOLOGY LABORATORY Disclaimer An external and internal positive and negative controls are appropriate for the histochemical, immunohistochemical and immunofluorescence stain(s) in this case (if any), except where stated explicitly. The performance characteristics of the stain(s) cited in this report were developed and its performance characteristic determined by the Dermatopathology Laboratory at [facility], directed by Dr. Trung Pimentel. These tests need not be, and therefore are not, approved by the [place] Food and Drug Administration. The tests are used for clinical purposes. Billing Codes Specimen Charges Stain Charges 37257 21247 1 1 3 9:55 AM RODENT EXTERMINATOR DERMATOPATHOLOGY LABORATORY Embedded Images 3 9:55 AM RODENT EXTERMINATOR DERMATOPATHOLOGY LABORATORY Pathology/Cytology TISSUE SPECIMEN FROM SKIN / Unknown 07/26/2022 07/28/2022 6:58 AM RODENT EXTERMINATOR Miscellaneous samples (specimen) TISSUE SPECIMEN FROM SKIN / Unknown 07/26/2022 07/28/2022 6:58 AM RODENT EXTERMINATOR Abdifatah Chun MD LAB - PATHOLOGY/CYTOLOGY ORDERAB LES Final Result DERMATOPATHOLOGY LABORATORY [facility] - Department of Dermatology [facility] Specialized Medicine [address] [place] [address], [address] [phone] documented in this encounter Visit Diagnoses Not on filedocumented in this encounter Care Teams Public Health Doctor Relationship Specialty Start Date End Date Britney Brito PA [address] [place] [address] PCP - General 03/15/17 documented as of this encounter
--- OUTSIDE RECORDS SUMMARY | 2025-01-28 14:11 | XMS_ITS | Encounter Summary ---
Author Organization [facility] Address [address] [facility] [place] [address] Care Team Providers Care Banquet Director Name Role Phone Britney Brito Primary Care Pr ovider Encounter Details Date Type Department Care Team (Late st Contact Info) Description 09/20/2023 Lab Requisition [facility] - DermPath Lab [address] [place] [phone] Abdifatah Chun MD [address] [place], [place] [phone] Social History Tobacco Use Types Packs/Day Years Used Date Smoking Tobacco: Every Day Smokeless Tobacco: Never Alcohol Use Standard Drinks/Week Comments No 0 (1 standard drink = 0.6 oz pur e alcohol) Comments Unknown Sex and Gender Information Value Date Recorded Sex Assigned at Not on file Legal Sex Female 5:19 PM ACID REMOVER Gender Identity Not on file Sexual Orientation Not on file documented as of this encounter Plan of Treatment Not on file documented as of this encounter Procedures Procedure Name Priority Date/Time Associated Diagnosis Comments DERMATOPATHOLOGY Routine 09/19/2023 3:33 AM CDT documented in this encounter Results * DERMATOPATHOLOGY (09/19/2023 3:33 AM CDT) Case Report Dermatopathology Report Case: [id number] Authorizing Provider: Abdifatah Chun MD Collected: 09/19/2023 03:33 AM Ordering Location: [facility] - Received: 09/20/2023 08:30 AM [...] CHANGES (L90.5) (see microscopic description) 4:02 PM [facility] DERMATOP[facility]Y LABORATORY at 1602 CDT Clinical History A: R/O Neoplasm vs Benign Nevus B: R/O Neoplasm 4:02 PM [facility] DERMATOPATHOLOGY LABORATORY Gross Description Specimen [...] measuring 9x8x1 mm. Jar 0. 4:02 PM [facility] DERMATOPATH[facility]Y [facility]ATORY Microscopic Description Specimen [...] sections were obtained and reviewed. 4:02 PM [facility] Disclaimer An external and internal positive and negative controls are appropriate for the histochemical, immunohistochemical and immunofluorescence stain(s) in this case (if any), except where stated explicitly. The performance characteristics of the stain(s) cited in this report were developed and its performance characteristic determined by the Dermatopathology Laboratory at [facility], directed by Dr. Trung Pimentel. These tests need not be, and therefore are not, approved by the [place] Food and Drug Administration. The tests are used for clinical purposes. Billing Codes Specimen Charges Stain Charges 39663 66459 1 1 4 4:02 PM CDT DERMATOPATHOLOGY LABORATORY Embedded Images 4 4:02 PM CDT DERMATOPATHOLOGY LABORATORY Pathology/Cytology TISSUE SPECIMEN FROM SKIN / Unknown 09/19/2023 3:33 AM CDT 09/20/2023 8:30 AM CDT Miscellaneous samples (specimen) TISSUE SPECIMEN FROM SKIN / Unknown 09/19/2023 3:33 AM CDT 09/20/2023 8:30 AM CDT Abdifatah Chun MD LAB - PATHOLOGY/CYTOLOGY ORDERAB LES Final Result DERMATOPATHOLOGY LABORATORY [facility] - Department of Dermatology [facility] Specialized Medicine [address] [place] [address], [address] [phone] documented in this encounter Visit Diagnoses Not on filedocumented in this encounter Care Teams Banquet Director Relationship Specialty Start Date End Date Britney Brito PA [address] [place] [address] PCP - General 03/15/17 documented as of this encounter
--- OUTSIDE RECORDS SUMMARY | 2025-01-28 14:11 | XMS_ITS | Encounter Summary ---
Author Organization [facility] Address [address] [facility] [place] [address] Care Team Providers Care Power Project Manager Name Role Phone Britney Brito Primary Care Pr ovider Encounter Details Date Type Department Care Team (Late st Contact Info) Description 02/14/2024 Lab Requisition [facility] Lab [address] [place] [phone] Abdifatah Chun MD [address] [place], [place] [phone] Social History Tobacco Use Types Packs/Day Years Used Date Smoking Tobacco: Every Day Smokeless Tobacco: Never Alcohol Use Standard Drinks/Week Comments No 0 (1 standard drink = 0.6 oz pur e alcohol) Comments Unknown Sex and Gender Information Value Date Recorded Sex Assigned at Not on file Legal Sex Female 5:19 PM DATA SPECIALIST Gender Identity Not on file Sexual Orientation Not on file documented as of this encounter Plan of Treatment Not on file documented as of this encounter Procedures Procedure Name Priority Date/Time Associated Diagnosis Comments DERMATOPATHOLOGY Routine 02/13/2024 12:0 0 AM CDT documented in this encounter Results * DERMATOPATHOLOGY (02/13/2024 12:00 AM CDT) Case Report Dermatopathology Report Case: [id number] Authorizing Provider: Abdifatah Chun MD Collected: 02/13/2024 [...] characteristic determined by the Dermatopathology Laboratory at [facility], directed by Dr. Trung Pimentel. These tests need not be, and therefore are not, approved by the [place] Food and Drug Administration. The tests are used for clinical purposes. Billing Codes Specimen Charges Stain Charges 68671 1 1:44 PM CDT DERMATOPATHOLOGY LABORATORY Embedded Images 1:44 PM CDT DERMATOPATHOLOGY LABORATORY Pathology/Cytolog y TISSUE SPECIMEN FROM SKIN / Unknown 02/13/2024 02/14/2024 10:17 AM CDT Abdifatah Chun MD LAB - PATHOLOGY/CYTOLOGY ORDERAB LES Final Result DERMATOPATHOLOGY LABORATORY [facility] - Department of Dermatology [address], [address] [phone] documented in this encounter Visit Diagnoses Not on filedocumented in this encounter Care Teams Power Project Manager Relationship Specialty Start Date End Date Britney Brito PA [address] [place] [address] PCP - General 03/15/17 documented as of this encounter
--- OUTSIDE RECORDS SUMMARY | 2025-01-28 14:11 | XMS_ITS | Encounter Summary ---
Author Organization [facility] Address [address] [place] [place] [address] Care Team Providers Care Industrial Eng Name Role Phone Britney Brito Primary Care Pr ovider Encounter Details Date Type Department Care Team (Late st Contact Info) Description 03/12/2024 Lab Requisition [facility] - DermPath Lab [address] [place] [phone] Abdifatah Chun MD [address] [place], [place] [phone] Social History Tobacco Use Types Packs/Day Years Used Date Smoking Tobacco: Every Day Smokeless Tobacco: Never Alcohol Use Standard Drinks/Week Comments No 0 (1 standard drink = 0.6 oz pur e alcohol) Comments Unknown Sex and Gender Information Value Date Recorded Sex Assigned at Not on file Legal Sex Female 5:19 PM FOUNDRY FINISHER Gender Identity Not on file Sexual Orientation Not on file documented as of this encounter Plan of Treatment Not on file documented as of this encounter Procedures Procedure Name Priority Date/Time Associated Diagnosis Comments DERMATOPATHOLOGY Routine 03/11/2024 12:0 0 AM CDT documented in this encounter Results * DERMATOPATHOLOGY (03/11/2024 12:00 AM CDT) Case Report Dermatopathology Report Case: [id number] Authorizing Provider: Abdifatah Chun MD Collected: 03/11/2024 12:00 AM Ordering Location: [facility] - Received: 03/12/2024 07:32 AM [...] characteristic determined by the Dermatopathology Laboratory at [facility], directed by Dr. Trung Pimentel. These tests need not be, and therefore are not, approved by the [place] Food and Drug Administration. The tests are used for clinical purposes. Billing Codes Specimen Charges Stain Charges 41018 50854 1 1 4 5:20 PM CDT DERMATOPATHOLOGY LABORATORY Embedded Images 5:20 PM CDT DERMATOPATHOLOGY LABORATORY Pathology/Cytology TISSUE SPECIMEN FROM SKIN / Unknown 03/11/2024 03/12/2024 7:32 AM CDT Miscellaneous samples (specimen) TISSUE SPECIMEN FROM SKIN / Unknown 03/11/2024 03/12/2024 7:32 AM CDT us Abdifatah Chun MD LAB - PATHOLOGY/CYTOLOGY ORDERAB LES Final Result DERMATOPATHOLOGY LABORATORY [facility] - Department of Dermatology [facility] Medicine [address] [place] [address], [address] [phone] documented in this encounter Visit Diagnoses Not on filedocumented in this encounter Care Teams Industrial Eng Relationship Specialty Start Date End Date Britney Brito PA [address] [place] [address] PCP - General 03/15/17 documented as of this encounter
--- OUTSIDE RECORDS SUMMARY | 2025-01-28 14:11 | XMS_ITS | Patient Health Record ---
Author Organization [facility] Address [address] [place] [address] Care Team Providers Care Web User Experience Strategist Name Role Phone Britney Pretty Primary Care Provider Alejandro DUQUE MD, PARVIZ Unavailable Reason For Referral No Information Problems Problem Type SNOMED Code ICD Code Onset Dates Problem Status W/U Status Risk Notes Problem Obstruction of bile duct (32925967) Obstruction of bile duct (K83.1) Active confirmed Plan Of Treatment Pending Test Test Name Order Date Endoscopic Retrograde Cholangiopancreato graphy (ERCP) 12/19/2023 Endoscopic Retrograde Cholangiopancreato graphy (ERCP) 01/10/2024 Insurance Providers Payer Name Payer Address Payer Phone Subscriber Number Group Number Insured Name Patient Relationship to Insured Coverage Start Date Coverage End Date [place] [address] [place] [id number] DeclanJohnIvis Self - patient is the insured [place] - [place] to [place]/[facility] [address] [address] [place], [place] [id number] Ivis Manriquez Self - patient is the insured
--- OUTSIDE RECORDS SUMMARY | 2025-01-28 14:11 | XMS_ITS | Encounter Summary ---
Author Organization [facility] Address [address] [facility] [place] [address] Care Team Providers Care Flower Planter Name Role Phone Britney Brito Primary Care Pr ovider Encounter Details Date Type Department Care Team (Late st Contact Info) Description 08/24/2022 Lab Requisition [facility] DermPath Lab [address] [place] [phone] Abdifatah Chun MD [facility] [place], [place] [phone] Social History Tobacco Use Types Packs/Day Years Used Date Smoking Tobacco: Every Day Smokeless Tobacco: Never Alcohol Use Standard Drinks/Week Comments No 0 (1 standard drink = 0.6 oz pur e alcohol) Comments Unknown Sex and Gender Information Value Date Recorded Sex Assigned at Not on file Legal Sex Female 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 DROPPER Gender Identity Not on file Sexual Orientation Not on file documented as of this encounter Plan of Treatment Not on file documented as of this encounter Procedures Procedure Name Priority Date/Time Associated Diagnosis Comments DERMATOPATHOLOGY Routine 08/23/2022 12:0 0 AM CDT documented in this encounter Results * DERMATOPATHOLOGY (08/23/2022 12:00 AM CDT) Case Report Dermatopathology Report Case: [id number] Authorizing Provider: Abdifatah Chun MD Collected: 08/23/2022 12:00 AM Ordering Location: [facility] DermPath Lab Received: 08/24/2022 03:08 PM Pathologist: [...] characteristic determined by the Dermatopathology Laboratory at [facility], directed by Dr. Trung Pimentel. These tests need not be, and therefore are not, approved by the [place] Food and Drug Administration. The tests are used for clinical purposes. Billing Codes Specimen Charges Stain Charges 30316 1 3 3:59 PM CDT DERMATOPATHOLOGY LABORATORY Embedded Images 3 3:59 PM CDT DERMATOPATHOLOGY LABORATORY Pathology/Cytolog y TISSUE SPECIMEN FROM SKIN / Unknown 08/23/2022 08/24/2022 3:08 PM CDT us Abdifatah Chun MD LAB - PATHOLOGY/CYTOLOGY ORDERAB LES Final Result DERMATOPATHOLOGY LABORATORY [facility] - Department of Dermatology [facility] Specialized Medicine [address] [facility], [address]rd Floor [address] [phone] documented in this encounter Visit Diagnoses Not on filedocumented in this encounter Care Teams Flower Planter Relationship Specialty Start Date End Date Britney Brito PA [address] [place] [phone] PCP - General 03/15/17 documented as of this encounter
--- OUTSIDE RECORDS SUMMARY | 2025-01-28 14:11 | XMS_ITS | Clinical Summary ---
Author Organization [facility] Address [address] [place] [address] Care Team Providers Care Roentgenologist Name Role Phone Britney Brito Primary Care Pr ovider Source Comments [facility],non-owned Affiliates and Associated Physician Practices is amultiple site organization consisting of ambulatory clinics and hospital sitesin [place], [place], [place] and [place]. This disclosure is being madepursuant to the Care Everywhere program and may not contain all information available regarding this patient. Last updated 18.[facility] Medications * Be aware that medications may [...] fluticasone propionate (FLONASE) 50 MCG/ACT nasal spray [place] 1 spray into each nostril DAILY. 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
--- OUTSIDE RECORDS SUMMARY | 2025-01-28 14:12 | XMS_ITS | Clinical Summary ---
Author Organization [facility] Address [address] [place] [address] Care Team Providers Care Pre Kindergarten Teacher Name Role Phone Britney Borja Primary Care Provider [phone] Allergies Active Allergy Reactions Criticality Noted Date Comments Amoxicillin-Pot Clavulanate Itching Medium 12/10/19 21 Medications fluticasone (FLONASE) 50 mcg/spray Hull, Suspension 1 Hull. 03/15/20 17 Active desvenlafaxine 50 mg Extended [...] Encounters Date Type Department Care Team Description 01/21/2025 Orders Only [facility] Oncology and Hematology - [place] [address] [place] [address] Sincere Feliz MD 01/20/2025 Orders Only [facility] Oncology and Hematology - [place] [address] [place] [address] Sincere Feliz MD 01/07/2025 External Device Data STL ABSTRACTION Provider, [...] Care Team (Late st Contact Info) Description 02/04/2025 11:15 AM CDT Office Visit [facility] Oncology and Hematology - [place] [address] [place] [address] Agnes Anand MD [address] [place] [address] Health Maintenance Due Date Last [...] - Risk 60-74 years 1-dose series) 2024 Medicare Advantage ([place]) Preventative Visit/Annual Wellness Visit 06/05/2024 INFLUENZA VACCINE (#1) 2025 , 04/22/2019, 03/20/2019, Additional history exists PAP SMEAR 06/07/2025 06/07/2022, 08/2022, 01/13/2020, Additional history exists CERVICAL CANCER SCREENING 06/07/2027 HPV/Cotest (21-29) 06/07/2027 06/07/2022, 12/14/2015 HPV/Cotest (30-65) 06/07/2027 06/07/2022, 12/14/2015 COLORECTAL SCREENING 01/07/2030 01/08/2020, 01/08/2020, 01/08/2020, Additional history exists Colorectal Cancer Screening 01/07/2030 HEPATITIS B VACCINES Aged Out No long er eligible based on patient's age to complete this topic Procedures Procedure Name Priority Date/Time Associated Diagnosis Comments CBC WITH AUTODIFFERENTIAL Routine 01/20/2025 4:21 PM CDT IMMUNOGLOBULINS IGG IGA IGM Routine 01/20/2025 11:25 AM CDT COMPREHENSIVE METABOLIC PANEL Routine 01/20/2025 10:59 AM CDT from Last 3 Months Results * CBC WITH AUTODIFFERENTIAL (01/20/2025 4:21 PM CDT) Blood us Sincere Feliz MD HEMATOLOGY ORDERABLES Final Res ult * IMMUNOGLOBULINS IGG IGA IGM (01/20/2025 11:25 AM CDT) Blood us Sincere Feliz MD CHEMISTRY ORDERABLES Final Resu lt * COMPREHENSIVE METABOLIC PANEL (01/20/2025 10:59 AM CDT) Blood us Sincere Feliz MD CHEMISTRY ORDERABLES Final Resu lt from Last 3 Months Insurance MEDICARE PART A [place] Subscriber Plan / Payer (Ef fective 2020-Present) Name:Ivis Manriquez Relation to Subscriber:Self Name:Ivis Manriquez Payer ID:Not on file Group ID:Not on file Type:Medicaid Address: [address] PPO [facility] Care Teams Pre Kindergarten Teacher Relationship Specialty Start Date End Date Britney Borja PA PCP - General Physician Retail Cashier 01/22/18
--- OUTSIDE RECORDS SUMMARY | 2025-01-28 14:12 | XMS_ITS | Patient Health Record ---
Author Organization [facility] Address [address] [place] [id number] Care Team Providers Care Single Resource Boss Name Role Phone Angle Iyer Unavailable [phone] Results Component Value Reference Range Flag Notes .COMPREHENSIVE METABOLIC MASTERSON EL (46255) CMP Reviewed date:01/18/2025 01:34:14 PM Interpretation: Performing Lab:[place], [facility]-[id number] Linnette Salazar, LnqxcqSZ[address] Lilly Burger MD Notes/Report: GLUCOSE 124 65-99 [...] Reviewed date:01/18/2025 01:34:14 PM Interpretation: Performing Lab:STACY WILEX Camila-[id number] Linnette Salazar, WqavoyEK[address] Lilly Burger MD Notes/Report: MAGNESIUM 2.0 1.5-2.5 mg/dL N .LIPID PANEL, STANDARD (7600 ) Reviewed date:01/18/2025 01:34:14 PM Interpretation: Performing Lab:Alfon[facility] KUMAR-[id number] Linnette Salazar, TmlvyyJW[address] Lilly Burger MD Notes/Report: CHOLESTEROL, TOTAL 159 <200 mg/dL N HDL CHOLESTEROL 97 > OR = 50 mg/dL N TRIGLYCERIDES 63 <150 mg/dL N LDL-CHOLESTEROL 48 N Reference range: <100 better accuracy than the Friedewald equation in the estimation of LDL-C. Yvan SS et al. XIMENA. 2013;310(19): 1953-6525 (http://education.[employer].Nitro PDF/faq/FAQ16 4) Desirable range <100 mg/dL for primary prevention; <70 mg/dL for patients with CHD or diabetic patients with > or = 2 CHD risk factors. LDL-C is now calculated using the Yvan-Boogie calculation, which is a validated novel method providing CHOL/HDLC RATIO 1.6 <5.0 (calc) N NON HDL CHOLESTEROL 62 <130 mg/dL (calc) N For patients with diabetes plus 1 major ASCVD risk factor, treating to a non-HDL-C goal of <100 mg/dL (LDL-C of <70 mg/dL) is considered a therapeutic option. .ALBUMIN, RANDOM URINE W/CRE ATININE (6517) Reviewed date:01/18/2025 01:34:14 PM Interpretation: Performing Lab:[facility] KUMAR-[id number] Linnette Salazar, TtptaxBB[address] Lilly Burger MD Notes/Report: CREATININE, RANDOM URINE [...] 99) Reviewed date:01/18/2025 01:34:14 PM Interpretation: Performing Lab:[facility] W[facility]X [place]-[id number] Linnette Salazar [id number] Lilly Bugrer MD Notes/Report: WHITE BLOOD CELL COUNT 8.4 [...] 8.4 7.5-12.5 fL N ABSOLUTE NEUTROPHILS 4956 0212-4769 cells/uL N ABSOLUTE LYMPHOCYTES 2201 850-3900 cells/uL N ABSOLUTE MONOCYTES 1126 200-950 cells/uL H ABSOLUTE EOSINOPHILS 101 15-500 cells/uL N ABSOLUTE BASOPHILS 17 0-200 cells/uL N NEUTROPHILS 59 N LYMPHOCYTES 26.2 N MONOCYTES 13.4 N EOSINOPHILS 1.2 N BASOPHILS 0.2 N VITAMIN B12/FOLATE, SERUM PA REGINA (9066) Reviewed date:01/18/2025 01:34:14 PM Interpretation: Performing Lab:[facility] W[facility]X Camila-[id number] Linnette Salazar NjagimSZ[address] Lilly Burger MD Notes/Report: VITAMIN B12 476 025-1157 pg/mL N FOLATE, SERUM 19.5 N Low: <3.4 Borderline: 3.4-5.4 Normal: >5.4 Reference Range T4, FREE (866) Reviewed date:01/18/2025 01:34:14 PM Interpretation: Performing Lab:Alfon[facility] KUMAR-[id number] Linnette Salazar, OlytewAN[address] Lilly Burger MD Notes/Report: T4, FREE 1.2 0.8-1.8 ng/dL N TSH (899) Reviewed date:01/18/2025 01:34:14 PM Interpretation: Performing Lab:Alfon[facility] KUMAR [place] Lilly Burger MD Notes/Report: TSH 0.38 0.40-4.50 mIU/L L T3, FREE (75665) Reviewed date:01/18/2025 01:34:14 PM Interpretation: Performing Lab:Alfon[facility] KUMAR-[id number] [place]over[address] Lilly Burger MD Notes/Report: T3, FREE 2.7 2.3-4.2 pg/mL N .VITAMIN D,25-OH,TOTAL,IA (1 7306) Reviewed date:01/18/2025 01:34:15 PM Interpretation: Performing Lab:Alfonzo KUMARa1Lory [place] Lilly Burger MD Notes/Report: VITAMIN D,25-OH,TOTAL,IA 48 30-100 ng/mL N Insufficiency: 20 - 29 ng/mL Optimal: > or = 30 ng/mL For 25-OH Vitamin D testing on patients on D2-supplementation and patients for whom quantitation 25-OH VIT D, (D2,D3), LC/MS/MS is recommended: order code 55159 (patients >2yrs). See Note 1 Deficiency: <20 ng/mL of D2 and D3 fractions is required, the [facility](TM) Note 1 For additional information, please refer to http://education.[employer]/faq/YYC371 (This link is being provided for informational/ educational purposes only.) Vitamin D Status 25-OH Vitamin D: Reason For Referral No Information Medications Medication [...] cigarettes/cigar a day do you smoke? - Are you an other tobacco user? No Problems Problem Type SNOMED Code ICD Code Onset Dates Problem Status W/U Status Risk Notes Problem Vitamin D deficiency (65732474) Vitamin D deficiency, unspecified (E55.9) Active confirmed Problem Dyslipidemia (646192749) Dyslipidemia (E78.5) Active confirmed Problem Hyperglycemia due to type 2 diabetes mellitus (094700270747037) Type 2 diabetes mellitus with hyperglycemia, without long-term current use of insulin (E11.65) Active confirmed Problem Neuropathy (651471955) Neuropathy (G62.9) Active confirmed Problem Obesity (848350482) Obesity (BMI 30-39.9) (E66.9) Active confirmed Vital Signs Heart Rate 84 /min 01/10/2025 Height-cm 157.48 cm 01/10/2025 Blood pressure diastolic 85 mm Hg 01/10/2025 Weight-kg 79.38 kg 01/10/2025 Height 62 in 01/10/2025 Blood pressure systolic 143 mm Hg 01/10/2025 Weight 175 lbs 01/10/2025 BMI 32 kg/m2 01/10/2025 Encounters Encounter Location Date Provider Diagnosis AMMO Dr. Iyer [address] [place] [address] 01/10/2025 Angle Iyer Dietary counseling a nd surveillance Z71.3 ; Type 2 diabetes mellitus with hyperglycemia, without long-term current use of insulin E11.65 ; Obesity (BMI 30-39.9) E66.9 ; Other fatigue R53.83 ; Dyslipidemia E78.5 and Vitamin D deficiency, unspecified E55.[address] Iyer [address] [place], [place] [id number] 01/13/2025 Angle Iyer AMMO [facility] [address] [place] [address] 01/13/2025 Angle Iyer Neuropathy G62.[address] Iyer [address] [place], [place] [phone] 01/13/[address] Iyer [address] [place] [address] 01/15/2025 Angle Iyer Assessments Encounter Date Diagnosis (ICD Code) Assessment Notes Treatment Notes Treatment Clinical Notes Section Notes 01/13/2025 Neuropathy (ICD-10 - G62.9) 01/10/2025 Dietary counseling and surveillance (ICD-10 - Z71.3) Spent 15 minutes preventative counseling patient on dietary recommendations and changes in setting of hyperglycemia- need to restrict refined sugars and processed foods and incorporate up to 150 minutes of moderate level activity weekly. 01/10/2025 Type 2 diabetes mellitus with hyperglycemia, without long-term current use of insulin (ICD-10 - E11.65) 01/10/2025 Obesity (BMI 30-39.9) (ICD-10 - E66.9) [...] comprehensive metabolic panel and lipid panel at [facility] [place] Chronic PainAssessment: Patient reports chronic pain, currently [...] Dupixent and under the care of a mortar carrier.Plan:- Continue Dupixent 300 mg every other week- Continue follow-up with mortar carrier Monoclonal Gammopathy of Undetermined Significance (MGUS)Assessment: Patient [...] procedures, referring and communicating with other health hearing healthcare practitioner, documenting clinical information in the electronic or [...] Appt Details Provider Name:Angle Iyer, 03:20:00 PM, [address] [place] [address], [place], [address], Insurance Providers Payer Name Payer Address Payer Phone Subscriber Number Group Number Insured Name Patient Relationship to Insured Coverage Start Date Coverage End Date [facility] ([facility]) [address] [address] [place] [address] [id number] Ivis Manriquez Self - patient is the insured Medical (General) History Medical History History ICD Code hypertension diabetes high blood pressure high cholestrol Surgical History Surgery Date(Month/Year) broke right arm in 4 different places 20 23. gallbladder umbilical cord hernia
[2025-01-29 14:08] LABS: Albumin 3.7 g/dL (2.9-4.4); Alpha-1-Globulin 0.3 g/dL (0.0-0.4); Alpha-2-Globulin 0.7 g/dL (0.4-1.0); Gamma Globulin 0.8 g/dL (0.4-1.8)
== END 2025-01-28 14:07 | disposition home or self-care (01) ==
LOC: ANHLAB 14:07
PROVIDERS: PCP Internal Medicine Gastroenterology; Visit Provider Internal Medicine Hematology & Oncology
DX: D47.2 Monoclonal gammopathy (principal)
CPT/HCPCS: 84155; 84165